=== PATIENT | male | born 1945 | race African-American/Black ===

== ENCOUNTER 2016-10-10 18:08 | Inpatient (IN) | payer MEDICARE, MEDICAID ==
[2016-10-10] MEDS ORDERED: NORMAL SALINE 1000 ML 1,000 ML IV PRN ×5 (18:21→22:29)
--- NOTE | 2016-10-10 19:11 | ER Document Report ---
ED General - General Stated Complaint: WEAKNESS Time seen by provider: 19:11 Mode of Arrival: Stretcher Information source: Emergency Med Personnel TRAVEL OUTSIDE OF THE [place] IN LAST 30 DAYS: No - HPI Patient complains to provider of: hypotension, weight loss, dehydration Onset: Other - Over the past month Onset/Duration: Gradual Quality of pain: Achy Severity: Mild Pain Level: 2 Associated symptoms: Body/muscle aches, Nausea, Weakness Exacerbated by: Denies Relieved by: Denies Notes: Patient is a 70-year-old male with a history of hypertension who was brought to the emergency room by EMS after found by family to be malnourished and dehydrated, family states it is normally quite active, they have not seen him in approximately one month, they stopped by to check on him today and found him in his current state of health, patient admits that he has not had anything to eat or drink for at least the last several days and he is too weak to get up on his own right now - Related Data Allergies/Adverse Reactions: No Known Allergies Allergy (Unverified 09/21/15 13:55) Past Medical History - General Information source: Patient, Relative - Social History Smoking Status: Unknown if Ever Smoked Family History: Reviewed & Not Pertinent - Past Medical History Cardiac Medical History: Reports: Hx Hypertension Denies: Hx Heart Attack Pulmonary Medical History: Denies: Hx Asthma Neurological Medical History: Denies: Hx Cerebrovascular Accident, Hx Seizures GI Medical History: Denies: Hx Hepatitis, Hx Hiatal Hernia, Hx Ulcer Infectious Medical History: Denies: Hx Hepatitis Past Surgical History: Denies: Hx Open Heart Surgery, Hx Pacemaker Review of Systems - Review of Systems Constitutional: Weakness EENT: No symptoms reported Cardiovascular: No symptoms reported Respiratory: No symptoms reported Gastrointestinal: Abdominal pain, Poor appetite, Poor fluid intake Genitourinary: No symptoms reported Male Genitourinary: No symptoms reported Musculoskeletal: No symptoms reported Skin: Dryness Hematologic/Lymphatic: No symptoms reported Neurological/Psychological: No symptoms reported -: Yes All other systems reviewed and negative Physical Exam - Vital signs Vitals: Resp Pulse Ox 16 93 10/10/16 18:20 10/10/16 18:20 Interpretation: Hypotensive - General General appearance: Other - Chronically ill-appearing - HEENT Head: Normocephalic, Atraumatic Eyes: Normal Conjunctiva: Normal Extraocular movements intact: Yes Eyelashes: Normal Pupils: PERRL Mucous membranes: Dry - Respiratory Respiratory status: No respiratory distress Chest status: Nontender Breath sounds: Normal Chest palpation: Normal - Cardiovascular Rhythm: Regular Heart sounds: Normal auscultation - Abdominal Distension: No distension Bowel sounds: Normal Tenderness: Tender - Mild epigastric Organomegaly: No organomegaly - Back Back: Normal - Extremities General upper extremity: Normal inspection General lower extremity: Normal inspection - Neurological Orientation: AAOx4 [place] Coma Scale Eye Opening: Spontaneous [place] Coma Scale Verbal: Oriented [place] Coma Scale Motor: Obeys Commands [place] Coma Scale Total: 15 - Psychological Associated symptoms: Flat affect - Skin Skin Temperature: Warm Skin Moisture: Dry Course - Re-evaluation Re-evalutation: 10/10/16 21:56 Nursing staff spoke with our nursing foam cutting supervisor, we do not have the ability to do emergent dialysis here this evening call to [facility], spoke with [place]- no beds tonight 10/10/16 21:57 call to [facility], spoke with Feroz in transfer center, will have physician call back 10/10/16 22:03 Received a call back from Dr. Chris Diaz, indoor landscape architect through [facility] , he does not feel as though patient needs emergent dialysis at this point, feels as though he is likely just dry, recommends patient be admitted at our facility and be evaluated by our indoor landscape architect in the morning 10/10/16 22:16 Patient was discussed with Dr. Boyd, nephrology who agrees that patient can be admitted here, he will consult on patient in the morning, he requests the patient's labs be repeated, patient get a August catheter placed and a renal ultrasound completed 10/10/16 22:30 Patient was discussed with Dr. Harley, primary care provider who agrees to admit for further evaluation and treatment, he requested a blood gas and a repeat chemistry, he reports concern for possible ethylene glycol ingestion, requested that patient's osmolality be ordered as well and osmoler gap be calculated, patient will be admitted to the [facility] 10/11/16 03:27 Patient's osmolar gap is 7, patient does not appear to have ingested ethylene glycol, in fact he does not appear to have ingested any substances for at least the past few days, contributing to his severe dehydration, his chemistry actually seems to be slightly trending in the right direction, although he continues to be hypotensive, a central line was placed in the right internal jugular vein under ultrasound guidance, and sterile procedure, see procedure note for further details, patient continues to be mentating well, patient remains in the emergency room awaiting a bed in the [facility] - Vital Signs Vital signs: Temp Pulse Resp BP Pulse Ox 97.8 F 16 77/54 L 94 10/10/16 18:24 10/11/16 02:01 10/11/16 02:01 10/11/16 02:01 - Laboratory Result Diagrams: 10/10/16 20:08 10/11/16 00:05 Laboratory results interpreted by me: 10/10/16 10/10/16 10/10/16 20:08 20:08 20:08 Hgb 12.7 L MCV 77 L MCH 25.2 L RDW 15.7 H Plt Count 73 L Seg Neutrophils % 81.0 H Lymphocytes % 8.8 L Potassium 6.3 H* Carbon Dioxide 12 L Anion Gap 25 H BUN 172 H Creatinine 13.13 H Est GFR ( Amer) 5 L Est GFR (Non-Af Amer) 4 L Lactic Acid 2.5 H Creatine Kinase 28 L Lipase 505.5 H Urine Protein Urine Ketones Urine Blood Urine Urobilinogen 10/10/16 21:20 Hgb MCV MCH RDW Plt Count Seg Neutrophils % Lymphocytes % Potassium Carbon Dioxide Anion Gap BUN Creatinine Est GFR ( Amer) Est GFR (Non-Af Amer) Lactic Acid Creatine Kinase Lipase Urine Protein 100 H Urine Ketones TRACE H Urine Blood MODERATE H Urine Urobilinogen 2.0 H - Diagnostic Test Radiology reviewed: Image reviewed, Reports reviewed - EKG Interpretation by Me EKG shows normal: Sinus rhythm Rate: Normal Rhythm: NSR Procedures - Central Line Right Internal jugular Time completed: 00:04 Consent obtained: Yes Central line pre-insertion: Sterile PPE donned, Chloraprep applied, Sterile drapes applied Central line size (Fr.): 7 Central line lumen type: Triple Anesthetic type: 1% Lidocaine mL's of anesthesia: 4 Ultrasound guided: Yes Line secured with sutures: Yes Central line post-insertion: Blood return from lumens, Biopatch applied, Sutured , Sterile dressing applied, Position confirmed w/ CXR Number of attempts: 1 Complications: No Critical Care Note - Critical Care Note Total time excluding time spent on procedures (mins): 120 Comments: Patient arrived hypotensive, laboratory evaluation is consistent with acute renal failure and severe dehydration, requiring multiple IV fluid boluses and admission to the IMCU as well as consultation with specialists Discharge - Discharge Clinical Impression: Severe dehydration, Hyperkalemia Acute renal failure Qualifiers: Acute renal failure type: unspecified Qualified Code(s): N17.9 - Acute kidney failure, unspecified Hypotension Qualifiers: Hypotension type: unspecified hypotension type Qualified Code(s): I95.9 - Hypotension, unspecified Condition: Critical Disposition: ADMITTED INPATIENT Admitting Provider: Cherri Unit Admitted: [facility]
[2016-10-10 20:35] LABS: ABSOLUTE BASOPHILS # (AUTO) 0.1 10^3/uL (0.0-0.2); ABSOLUTE EOSINOPHILS # (AUTO) 0.1 10^3/uL (0.0-0.6); ABSOLUTE LYMPHOCYTES (AUTO) 0.5 10^3/uL (0.5-4.7); ABSOLUTE MONOCYTES (AUTO) 0.4 10^3/uL (0.1-1.4); ABSOLUTE NEUT (AUTO) 4.9 10^3/uL (1.7-8.2); BASOPHILS % (AUTO) 1.1 % (0-2); EOSINOPHILS % (AUTO) 2.2 % (0-6); HEMOGLOBIN 12.7 g/dL (13.5-17.0); HGB HCT DIFFERENCE -0.9; LYMPHOCYTES % (AUTO) 8.8 % (13-45); MEAN CORPUSCULAR HEMOGLOBIN 25.2 pg (27.0-33.4); MEAN CORPUSCULAR HGB CONC 32.7 g/dL (32.0-36.0); MEAN CORPUSCULAR VOLUME 77 fl (80-97); MONOCYTES % (AUTO) 6.9 % (3-13); RED BLOOD COUNT 5.05 10^6/uL (4.35-5.55); RED CELL DISTRIBUTION WIDTH 15.7 % (11.5-14.0); WHITE BLOOD COUNT 6.1 10^3/uL (4.0-10.5)
[2016-10-10 21:07] LABS: CREATINE KINASE MB 0.43 ng/mL (<4.55)
[2016-10-10 21:08] LABS: TROPONIN I < 0.012 ng/mL
[2016-10-10 21:30] LABS: ALANINE AMINOTRANSFERASE 21 U/L (21-72); ALBUMIN 3.5 g/dL (3.5-5.0); ALKALINE PHOSPHATASE 86 U/L (38-126); ASPARTATE AMINO TRANSFERASE 53 U/L (17-59); CALCIUM 8.5 mg/dL (8.4-10.2); CARBON DIOXIDE 12 mmol/L (22-30); CHLORIDE 104 mmol/L (98-107); CREATINE KINASE 28 U/L (55-170); CREATININE RESULT 13.13 mg/dL (0.52-1.25); GLUCOSE 86 mg/dL (75-110); LIPASE 505.5 U/L (23-300); SODIUM 141.3 mmol/L (137-145); TOTAL PROTEIN 7.6 g/dL (6.3-8.2)
[2016-10-10 21:43] LABS: APPEARANCE,URINE CLOUDY; BILIRUBIN,URINE NEGATIVE (NEGATIVE); GLUCOSE, URINE NEGATIVE (NEGATIVE); KETONES,URINE TRACE mg/dL (NEGATIVE); LEUKOCYTE ESTERASE,URINE NEGATIVE (NEGATIVE); NITRITE,URINE NEGATIVE (NEGATIVE); PROTEIN,URINE 100 mg/dL (NEGATIVE); URINE SPECIFIC GRAVITY 1.015
[2016-10-10 21:44] LABS: ALCOHOL < 10 mg/dL (NONE DETECTED); BLOOD UREA NITROGEN 172 mg/dL (7-20)
[2016-10-10 21:45] LABS: ANION GAP 25 (5-19)
[2016-10-10 21:49] LABS: POTASSIUM 6.3 mmol/L (3.6-5.0)
[2016-10-10] MEDS ORDERED: DEXTROSE 50%-WATER 25 GM/50 ML DISP.SYRIN IV ONE (21:54)
[2016-10-10] MEDS ORDERED: INSULIN REG, HUMAN 100 UNIT/ML 3 ML VIAL (PYX) IV ONE (21:54)
[2016-10-10] MEDS ORDERED: CALCIUM GLUCONATE 1000 MG/10 ML INJ IV ONE (21:54)
[2016-10-11 00:55] LABS: ALANINE AMINOTRANSFERASE 16 U/L (21-72); ALBUMIN 3.2 g/dL (3.5-5.0); ALKALINE PHOSPHATASE 82 U/L (38-126); ASPARTATE AMINO TRANSFERASE 53 U/L (17-59); BILIRUBIN,TOTAL 1.1 mg/dL (0.2-1.3); CALCIUM 8.2 mg/dL (8.4-10.2); CREATININE RESULT 12.05 mg/dL (0.52-1.25); GLUCOSE 89 mg/dL (75-110)
[2016-10-11 01:13] LABS: CARBON DIOXIDE 14 mmol/L (22-30); CHLORIDE 108 mmol/L (98-107); POTASSIUM 5.8 mmol/L (3.6-5.0); SODIUM 146.3 mmol/L (137-145)
[2016-10-11 01:17] LABS: ANION GAP 24 (5-19); BLOOD UREA NITROGEN 161 mg/dL (7-20)
[2016-10-11 01:35] LABS: ARTERIAL BLOOD BASE EXCESS -13.5 mmol/L; ARTERIAL BLOOD O2 SATURATION 64.6 % (94-98)
[2016-10-11] MEDS ORDERED: NORMAL SALINE 1000 ML 1,000 ML IV PRN ×3 (01:49→16:31)
[2016-10-11] MEDS ORDERED: DOCUSATE SODIUM 100 MG CAPSULE PO PRN (01:51)
[2016-10-11] MEDS ORDERED: ACETAMINOPHEN 325 MG TABLET PO PRN (01:51)
[2016-10-11] MEDS ORDERED: NORMAL SALINE 1000 ML 1,000 ML IV ONE (03:44)
[2016-10-11 06:44] LABS: ALANINE AMINOTRANSFERASE 18 U/L (21-72); ALBUMIN 2.9 g/dL (3.5-5.0); ALKALINE PHOSPHATASE 73 U/L (38-126); ASPARTATE AMINO TRANSFERASE 48 U/L (17-59); BILIRUBIN,TOTAL 0.9 mg/dL (0.2-1.3); CALCIUM 8.2 mg/dL (8.4-10.2); CARBON DIOXIDE 14 mmol/L (22-30); CHOLESTEROL 110.44 mg/dL (0-200); CREATININE RESULT 10.09 mg/dL (0.52-1.25); Direct HDL 32 mg/dL (>40); GLUCOSE 81 mg/dL (75-110); POTASSIUM 5.2 mmol/L (3.6-5.0); TOTAL PROTEIN 6.5 g/dL (6.3-8.2); TRIGLYCERIDES 261 mg/dL (<150)
[2016-10-11 06:58] LABS: BLOOD UREA NITROGEN 142 mg/dL (7-20); DIRECT LDL < 30 mg/dL (<100); VLDL CHOLESTEROL 52.2 mg/dL (10-31)
[2016-10-11 07:01] LABS: HEMATOCRIT 35.7 % (37.9-51.0); HEMOGLOBIN 11.4 g/dL (13.5-17.0); HGB HCT DIFFERENCE -1.5; MEAN CORPUSCULAR HEMOGLOBIN 24.8 pg (27.0-33.4); MEAN CORPUSCULAR VOLUME 78 fl (80-97); RED BLOOD COUNT 4.61 10^6/uL (4.35-5.55); RED CELL DISTRIBUTION WIDTH 15.5 % (11.5-14.0); WHITE BLOOD COUNT 5.5 10^3/uL (4.0-10.5)
[2016-10-11 07:06] LABS: CHLORIDE 114 mmol/L (98-107)
[2016-10-11 07:11] LABS: ANION GAP 20 (5-19)
--- NOTE | 2016-10-11 07:59 | EKG REPORT ---
SEVERITY:- OTHERWISE NORMAL ECG - SINUS RHYTHM LOW VOLTAGE IN FRONTAL LEADS : Confirmed by: Dc Zavala MD 11-Oct-2016 07:57:26
[2016-10-11] MEDS ORDERED: 1/2 NORMAL SALINE 1,000 ML IV PRN (09:05)
[2016-10-11] MEDS: PANTOPRAZOLE SODIUM 40 MG VIAL IV SCH (09:24)
[2016-10-11 10:15] LABS: ARTERIAL BLOOD BASE EXCESS -11.1 mmol/L; ARTERIAL BLOOD O2 SATURATION 94.1 % (94-98)
[2016-10-11] MEDS ORDERED: LIDOCAINE 1% INJ-PF (10 MG/ML) 30 ML SDV INJ ONE (11:51)
--- NOTE | 2016-10-11 13:13 | Progress Note ---
Provider Note Provider Note: PROCEEDURE: Dr. Boyd requested that the dialysis catheter be pulled back a 5 cm based on the chest x-ray. The Tegaderm dressing was removed, the skin around the right internal jugular catheter site was prepped with surgical scrub. The sutures holding the hub of the catheter workup and the catheter was withdrawn 5 cm. The catheter lab was then sutured back to the skin using a single 4-0 silk suture on either side. The skin on the neck below the right ear was anesthetized with a 1/4 ml intradermal 1% lidocaine injection prior to suturing the catheter hub back to the scan. Patient tolerated the procedure well with no problems. The PCT put another dressing around the catheter at its insertion and then a Tegaderm dressing over that.
--- NOTE | 2016-10-11 13:24 | PDOC H&P ---
History of Present Illness Admission Date/PCP: 10/10/16 22:46 YODIT CALHOUN Patient complains of: Pt has not been seen for weeks, not eating or drinking, dehydrated and wt loss of about 15-20 lbs as per family History of Present Illness: JEZ LE JR is a 70 year old male 70 yr old man with hx of HTN/GERD/ Osteoarthritis/Rhinitis/Vitamin D def./ Chronic smoker who lives alone and has not been seen for weeks as per family. He has not been eating, drinking and has lost about 15-20 lbs weight and was too weak and found on the floor by family when they checked on him. He denied any headache, seizures, fever, chest pain, dyspnea, cough, dysuria, oliguria.He was found to be severely dehydrated at ER and BP was 80/40 and was given 4 Liters of normal saline bolus at ER. Past Medical History Cardiac Medical History: Reports: Hypertension Denies: Myocardial Infarction Pulmonary Medical History: Denies: Asthma Neurological Medical History: Denies: Seizures GI Medical History: Denies: Hepatitis, Hiatal Hernia Hematology: Denies: Anemia, Sickle Cell Disease Past Surgical History Past Surgical History: Denies: Pacemaker Social History Smoking Status: Unknown if Ever Smoked Family History Family History: Reviewed & Not Pertinent Parental Family History Reviewed: Yes Children Family History Reviewed: Yes Sibling(s) Family History Reviewed.: Yes Medication/Allergy Home Medications: Amlodipine Besylate [Norvasc 10 mg Tablet] 10 mg PO DAILY 09/21/15 Diphenhydramine HCl [Diphenhist] 25 mg PO DAILY 09/21/15 Fexofenadine HCl [Tiffanie Allergy] 180 mg PO DAILY 09/21/15 Lisinopril/Hydrochlorothiazide [Lisinopril-Hctz 20-25 mg Tab] 1 each PO DAILY Pantoprazole Sodium [Protonix] 40 mg PO DAILY 09/21/15 Allergies/Adverse Reactions: No Known Allergies Allergy (Unverified 09/21/15 13:55) Review of Systems All systems: as per PMH Constitutional: PRESENT: anorexia, fatigue, weakness, weight loss Cardiovascular: PRESENT: as per HPI Respiratory: PRESENT: as per HPI Gastrointestinal: PRESENT: as per HPI Genitourinary: PRESENT: as per HPI Musculoskeletal: PRESENT: as per HPI Integumentary: PRESENT: as per HPI Neurological: PRESENT: as per HPI Psychiatric: PRESENT: as per HPI Endocrine: PRESENT: as per HPI Hematologic/Lymphatic: PRESENT: as per HPI Physical Exam Vital Signs: Temp Pulse Resp BP Pulse Ox 97.8 F 18 104/67 94 10/10/16 18:24 10/11/16 10:01 10/11/16 10:01 10/11/16 10:01 Intake & Output 10/10/16 10/11/16 10/12/16 06:59 06:59 06:59 Output Total 550 Balance -550 General appearance: PRESENT: no acute distress, thin Head exam: PRESENT: atraumatic, normocephalic Eye exam: PRESENT: EOMI, PERRLA Ear exam: PRESENT: TM's normal bilaterally Mouth exam: PRESENT: dry mucosa, neck supple Neck exam: PRESENT: carotid bruit Respiratory exam: PRESENT: clear to auscultation fadi, symmetrical Cardiovascular exam: PRESENT: +S1, +S2 GI/Abdominal exam: PRESENT: normal bowel sounds, soft Rectal exam: PRESENT: deferred Neurological exam: PRESENT: alert, awake, oriented to person, oriented to place , oriented to time Psychiatric exam: PRESENT: normal mood Results Laboratory Results: 10/11/16 06:06 10/11/16 06:06 10/10/16 10/11/16 10/11/16 23:00 00:05 00:05 WBC RBC Hgb Hct MCV MCH MCHC RDW Plt Count Carbonic Acid HCO3/H2CO3 Ratio ABG pH ABG pCO2 ABG pO2 ABG HCO3 ABG O2 Saturation ABG Base Excess FiO2 Sodium Cancelled 146.3 H Potassium Cancelled 5.8 H Chloride Cancelled 108 H Carbon Dioxide Cancelled 14 L Anion Gap Cancelled 24 H BUN Cancelled 161 H Creatinine Cancelled 12.05 H Est GFR ( Amer) Cancelled 5 L Est GFR (Non-Af Amer) Cancelled 4 L Glucose Cancelled 89 Serum Osmolality 362 H Lactic Acid Calcium Cancelled 8.2 L Total Bilirubin Cancelled 1.1 AST Cancelled 53 ALT Cancelled 16 L Alkaline Phosphatase Cancelled 82 Total Protein Cancelled 7.0 Albumin Cancelled 3.2 L Triglycerides Cholesterol LDL Cholesterol Direct VLDL Cholesterol HDL Cholesterol TSH Stool Occult Blood 10/11/16 10/11/16 10/11/16 00:29 01:22 04:01 WBC RBC Hgb Hct MCV MCH MCHC RDW Plt Count Carbonic Acid 0.99 L HCO3/H2CO3 Ratio 13:1 ABG pH 7.22 L ABG pCO2 32.9 L ABG pO2 39.5 L* ABG HCO3 13.1 L ABG O2 Saturation 64.6 L ABG Base Excess -13.5 FiO2 ROOM AIR Sodium Potassium Chloride Carbon Dioxide Anion Gap BUN Creatinine Est GFR ( Amer) Est GFR (Non-Af Amer) Glucose Serum Osmolality Lactic Acid 2.2 H Calcium Total Bilirubin AST ALT Alkaline Phosphatase Total Protein Albumin Triglycerides Cholesterol LDL Cholesterol Direct VLDL Cholesterol HDL Cholesterol TSH Stool Occult Blood NEGATIVE 10/11/16 10/11/16 10/11/16 06:06 06:06 06:06 WBC 5.5 RBC 4.61 Hgb 11.4 L Hct 35.7 L MCV 78 L MCH 24.8 L MCHC 32.0 RDW 15.5 H Plt Count 64 L Carbonic Acid HCO3/H2CO3 Ratio ABG pH ABG pCO2 ABG pO2 ABG HCO3 ABG O2 Saturation ABG Base Excess FiO2 Sodium 148.0 H Potassium 5.2 H Chloride 114 H Carbon Dioxide 14 L Anion Gap 20 H BUN 142 H Creatinine 10.09 H Est GFR ( Amer) 6 L Est GFR (Non-Af Amer) 5 L Glucose 81 Serum Osmolality Lactic Acid Calcium 8.2 L Total Bilirubin 0.9 AST 48 ALT 18 L Alkaline Phosphatase 73 Total Protein 6.5 Albumin 2.9 L Triglycerides 261 H Cholesterol 110.44 LDL Cholesterol Direct < 30 VLDL Cholesterol 52.2 H HDL Cholesterol 32 L TSH 3.44 Stool Occult Blood 10/11/16 10:03 WBC RBC Hgb Hct MCV MCH MCHC RDW Plt Count Carbonic Acid 0.79 L HCO3/H2CO3 Ratio 16:1 ABG pH 7.32 L ABG pCO2 26.3 L ABG pO2 73.9 L ABG HCO3 13.3 L ABG O2 Saturation 94.1 ABG Base Excess -11.1 FiO2 21% Sodium Potassium Chloride Carbon Dioxide Anion Gap BUN Creatinine Est GFR ( Amer) Est GFR (Non-Af Amer) Glucose Serum Osmolality Lactic Acid Calcium Total Bilirubin AST ALT Alkaline Phosphatase Total Protein Albumin Triglycerides Cholesterol LDL Cholesterol Direct VLDL Cholesterol HDL Cholesterol TSH Stool Occult Blood Impressions: KUB X-Ray 10/11/16 00:00 IMPRESSION: Nonspecific bowel gas pattern Renal Ultrasound 10/11/16 00:00 IMPRESSION: Small ascites. Otherwise unremarkable renal sonogram. Chest X-Ray 10/11/16 00:05 IMPRESSION: No acute cardiopulmonary findings. Right internal jugular central line tip at the level of the right atrium ; consider 5 cm retraction. Assessment & Plan - Diagnosis (1) Acute kidney injury Is this a current diagnosis for this admission?: YesPlan: Ct with IV fluids normal saline at 200 cc/hr; Avoid all nephrotoxics; strict input/out put chart; daily wt. F/u provider relations consultant, Dr Boyd for mgt. (2) Metabolic acidosis, increased anion gap Is this a current diagnosis for this admission?: YesPlan: Ct with IV Fluids normal saline at 200 cc/hr; Strict input/out put chart; monitor chemistry daily. (3) Hyperkalemia Is this a current diagnosis for this admission?: YesPlan: Ct with IV fluids; monitor chemistry daily and avoid all meds that will cause hyperkalemia. (4) Thrombocythemia Is this a current diagnosis for this admission?: YesPlan: Monitor CBC daily and monitor for bleeding.CT with conservative mgt. (5) Reflux esophagitis Is this a current diagnosis for this admission?: YesPlan: Ct with Protonix 40 mg daily iV. (6) DVT prophylaxis Is this a current diagnosis for this admission?: YesPlan: Ct with SCD; avoid Lovenox due to thrombocytopenia. (7) Cigarette smoker Is this a current diagnosis for this admission?: YesPlan: Ct with Nicotine patch 21 mg daily. - Time Time Spent: 30 to 50 Minutes Smoking Cessation Education: 3 to 10 minutes Medications reviewed and adjusted accordingly: Yes Anticipated discharge: Home Within: within 72 hours - Inpatient Certification Medical Necessity: Significant Comorbidiites Make Outpatient Treatment Too Risky , Need Close Monitoring Due to Risk of Patient Decompensation, Need For IV Fluids, Need For Continuous Telemetry Monitoring, Risk of Diagnosis Which Will Require Inpatient Eval/Care/Monitoring
[2016-10-11] MEDS ORDERED: DEXTROSE 5%-WATER 1000 ML 1,000 ML with SODIUM BICARBONATE 150 ML IV PRN ×2 (16:30)
[2016-10-11] MEDS: OXYCODONE-ACETAMINOPHEN 5-325 MG TABLET PO PRN (17:22)
[2016-10-11 17:40] LABS: ALANINE AMINOTRANSFERASE 21 U/L (21-72); ALBUMIN 2.7 g/dL (3.5-5.0); ALKALINE PHOSPHATASE 74 U/L (38-126); ANION GAP 18 (5-19); ASPARTATE AMINO TRANSFERASE 50 U/L (17-59); BILIRUBIN,TOTAL 0.7 mg/dL (0.2-1.3); CALCIUM 7.9 mg/dL (8.4-10.2); CARBON DIOXIDE 12 mmol/L (22-30); CHLORIDE 118 mmol/L (98-107); CREATININE RESULT 7.59 mg/dL (0.52-1.25); GLUCOSE 74 mg/dL (75-110); POTASSIUM 4.7 mmol/L (3.6-5.0); SODIUM 148.3 mmol/L (137-145); TOTAL PROTEIN 6.2 g/dL (6.3-8.2)
[2016-10-11 17:48] LABS: BLOOD UREA NITROGEN 125 mg/dL (7-20)
--- NOTE | 2016-10-11 18:08 | PDOC CONSULTATION ---
Consultation Consult Date: 10/11/16 Consult reason:: Acute kidney injury, hyperkalemia, gap acidosis History of Present Illness Admission Date/PCP: 10/10/16 22:46 YODIT CALHOUN History of Present Illness: JEZ LE JR is a 70 year old male with hx of HTN/GERD/ Osteoarthritis/ Rhinitis/Vitamin D def./Chronic smoker who lives alone and has not been seen for weeks as per family. He has not been eating, drinking and has lost about 15- 20 lbs weight and was too weak and found on the floor by family when they checked on him. He denied any headache, seizures, fever, chest pain, dyspnea, cough, dysuria, oliguria. He was found to be severely dehydrated at ER and BP was 80/40 and was given 4 Liters of normal saline bolus at ER.Was called to discuss the case by the ER physician and I agreed to once the history was reviewed. He has had a August catheter and renal ultrasound done. No apparent history of alcoholism. Patient is quite febrile and looks debilitated. However he is in no acute distress. Is continuing to get fluid resuscitation and seems relatively comfortable as I see him. Past Medical History Cardiac Medical History: Reports: Hypertension-primary Denies: Myocardial Infarction Pulmonary Medical History: Denies: Asthma Neurological Medical History: Denies: Seizures GI Medical History: Denies: Hepatitis, Hiatal Hernia Past Surgical History Past Surgical History: Denies: Pacemaker Social History Smoking Status: Unknown if Ever Smoked Family History Parental Family History Reviewed: Yes - Denies any family history of CKD Children Family History Reviewed: No Sibling(s) Family History Reviewed.: No Medication/Allergy Home Medications: Amlodipine Besylate [Norvasc 10 mg Tablet] 10 mg PO DAILY 09/21/15 Diphenhydramine HCl [Diphenhist] 25 mg PO DAILY 09/21/15 Fexofenadine HCl [Tiffanie Allergy] 180 mg PO DAILY 09/21/15 Lisinopril/Hydrochlorothiazide [Lisinopril-Hctz 20-25 mg Tab] 1 each PO DAILY Pantoprazole Sodium [Protonix] 40 mg PO DAILY 09/21/15 Allergies/Adverse Reactions: No Known Allergies Allergy (Unverified 09/21/15 13:55) Review of Systems Review of Systems: Constitutional: [PRESENT: as per HPI. ABSENT: chills, fever(s), headache(s), weight gain] Eyes: [ABSENT: visual disturbances] Ears: [ABSENT: hearing changes] Cardiovascular: [ABSENT: chest pain, dyspnea on exertion, edema, orthropnea, palpitations] Respiratory: [ABSENT: cough, hemoptysis] Gastrointestinal: [ABSENT: abdominal pain, constipation, diarrhea, hematemesis, hematochezia, nausea, vomiting] Genitourinary: [ABSENT: dysuria, hematuria] Musculoskeletal: [ABSENT: joint swelling] Integumentary: [ABSENT: rash, wounds] Neurological: [ABSENT: abnormal gait, abnormal speech, confusion, dizziness, focal weakness, syncope] Psychiatric: [ABSENT: anxiety, depression, homicidal ideation, suicidal ideation ] Endocrine: [ABSENT: cold intolerance, heat intolerance, polydipsia, polyuria] Hematologic/Lymphatic: [ABSENT: easy bleeding, easy bruising, lymphadenopathy] Physical Exam Vital Signs: Temp Pulse Resp BP Pulse Ox 98.9 F 16 94/64 L 90 L 10/11/16 12:00 10/11/16 13:31 10/11/16 13:31 10/11/16 13:31 Intake & Output 10/10/16 10/11/16 10/12/16 06:59 06:59 06:59 Output Total 550 Balance -550 General appearance: PRESENT: no acute distress, disheveled Exam: Constitutional: [PRESENT: as per HPI. ABSENT: chills, fever(s), headache(s), weight gain, weight loss] Eyes: [ABSENT: visual disturbances] Ears: [ABSENT: hearing changes] Cardiovascular: [ABSENT: chest pain, dyspnea on exertion, edema, orthropnea, palpitations] Respiratory: [ABSENT: cough, hemoptysis] Gastrointestinal: [ABSENT: abdominal pain, constipation, diarrhea, hematemesis, hematochezia, nausea, vomiting] Genitourinary: [ABSENT: dysuria, hematuria] Musculoskeletal: [ABSENT: joint swelling] Integumentary: [ABSENT: rash, wounds] Neurological: [ABSENT: abnormal gait, abnormal speech, confusion, dizziness, focal weakness, syncope] Psychiatric: [ABSENT: anxiety, depression, homicidal ideation, suicidal ideation ] Endocrine: [ABSENT: cold intolerance, heat intolerance, polydipsia, polyuria] Hematologic/Lymphatic: [ABSENT: easy bleeding, easy bruising, lymphadenopathy] Eye exam: PRESENT: conjunctiva pink, EOMI, PERRLA. ABSENT: nystagmus, periorbital swelling Ear exam: PRESENT: normal external ear exam Neck exam: ABSENT: meningismus, tenderness, thyromegaly, tracheal deviation Respiratory exam: PRESENT: clear to auscultation fadi, symmetrical, unlabored. ABSENT: crackles, rhonchi Cardiovascular exam: PRESENT: +S1, +S2, systolic murmur GI/Abdominal exam: PRESENT: soft. ABSENT: distended, firm, guarding, hyperactive bowel sounds, organomegaly, tenderness Extremities exam: ABSENT: pedal edema Neurological exam: PRESENT: alert - But lethargic, awake, oriented to person, oriented to place Psychiatric exam: PRESENT: flat affect Skin exam: PRESENT: dry, pallor. ABSENT: cyanosis, erythema, mottled, rash Results Laboratory Results: 10/11/16 06:06 10/11/16 06:06 10/10/16 10/11/16 10/11/16 23:00 00:05 00:05 WBC RBC Hgb Hct MCV MCH MCHC RDW Plt Count Carbonic Acid HCO3/H2CO3 Ratio ABG pH ABG pCO2 ABG pO2 ABG HCO3 ABG O2 Saturation ABG Base Excess FiO2 Sodium Cancelled 146.3 H Potassium Cancelled 5.8 H Chloride Cancelled 108 H Carbon Dioxide Cancelled 14 L Anion Gap Cancelled 24 H BUN Cancelled 161 H Creatinine Cancelled 12.05 H Est GFR ( Amer) Cancelled 5 L Est GFR (Non-Af Amer) Cancelled 4 L Glucose Cancelled 89 Serum Osmolality 362 H Lactic Acid Calcium Cancelled 8.2 L Magnesium Total Bilirubin Cancelled 1.1 AST Cancelled 53 ALT Cancelled 16 L Alkaline Phosphatase Cancelled 82 Total Protein Cancelled 7.0 Albumin Cancelled 3.2 L Triglycerides Cholesterol LDL Cholesterol Direct VLDL Cholesterol HDL Cholesterol TSH Stool Occult Blood 10/11/16 10/11/16 10/11/16 00:29 01:22 04:01 WBC RBC Hgb Hct MCV MCH MCHC RDW Plt Count Carbonic Acid 0.99 L HCO3/H2CO3 Ratio 13:1 ABG pH 7.22 L ABG pCO2 32.9 L ABG pO2 39.5 L* ABG HCO3 13.1 L ABG O2 Saturation 64.6 L ABG Base Excess -13.5 FiO2 ROOM AIR Sodium Potassium Chloride Carbon Dioxide Anion Gap BUN Creatinine Est GFR ( Amer) Est GFR (Non-Af Amer) Glucose Serum Osmolality Lactic Acid 2.2 H Calcium Magnesium Total Bilirubin AST ALT Alkaline Phosphatase Total Protein Albumin Triglycerides Cholesterol LDL Cholesterol Direct VLDL Cholesterol HDL Cholesterol TSH Stool Occult Blood NEGATIVE 10/11/16 10/11/16 10/11/16 06:06 06:06 06:06 WBC 5.5 RBC 4.61 Hgb 11.4 L Hct 35.7 L MCV 78 L MCH 24.8 L MCHC 32.0 RDW 15.5 H Plt Count 64 L Carbonic Acid HCO3/H2CO3 Ratio ABG pH ABG pCO2 ABG pO2 ABG HCO3 ABG O2 Saturation ABG Base Excess FiO2 Sodium 148.0 H Potassium 5.2 H Chloride 114 H Carbon Dioxide 14 L Anion Gap 20 H BUN 142 H Creatinine 10.09 H Est GFR ( Amer) 6 L Est GFR (Non-Af Amer) 5 L Glucose 81 Serum Osmolality Lactic Acid Calcium 8.2 L Magnesium Total Bilirubin 0.9 AST 48 ALT 18 L Alkaline Phosphatase 73 Total Protein 6.5 Albumin 2.9 L Triglycerides 261 H Cholesterol 110.44 LDL Cholesterol Direct < 30 VLDL Cholesterol 52.2 H HDL Cholesterol 32 L TSH 3.44 Stool Occult Blood 10/11/16 10/11/16 06:06 10:03 WBC RBC Hgb Hct MCV MCH MCHC RDW Plt Count Carbonic Acid 0.79 L HCO3/H2CO3 Ratio 16:1 ABG pH 7.32 L ABG pCO2 26.3 L ABG pO2 73.9 L ABG HCO3 13.3 L ABG O2 Saturation 94.1 ABG Base Excess -11.1 FiO2 21% Sodium Potassium Chloride Carbon Dioxide Anion Gap BUN Creatinine Est GFR ( Amer) Est GFR (Non-Af Amer) Glucose Serum Osmolality Lactic Acid Calcium Magnesium 2.8 H Total Bilirubin AST ALT Alkaline Phosphatase Total Protein Albumin Triglycerides Cholesterol LDL Cholesterol Direct VLDL Cholesterol HDL Cholesterol TSH Stool Occult Blood Impressions: KUB X-Ray 10/11/16 00:00 IMPRESSION: Nonspecific bowel gas pattern Renal Ultrasound 10/11/16 00:00 IMPRESSION: Small ascites. Otherwise unremarkable renal sonogram. Chest X-Ray 10/11/16 00:05 IMPRESSION: No acute cardiopulmonary findings. Right internal jugular central line tip at the level of the right atrium ; consider 5 cm retraction. Assessment & Plan - Diagnosis (1) Acute kidney injury Is this a current diagnosis for this admission?: YesPlan: Patient is clinically very dehydrated. Will adjust and correct fluids that he is on. Discussed with the treating nurse. Besides that I see that his sodium is going higher and will monitor that. The renal ultrasound shows no hydronephrosis or any obstructions. Patient has got hyperkalemia and metabolic acidosis which needs to be corrected and monitored. No evidence as indicated for alcohol poisonings.No indications for renal replacements. However need to monitor closely. (2) Hyperkalemia Is this a current diagnosis for this admission?: YesPlan: Should improve with appropriate fluid resuscitation. Monitor. (3) Hypotension Qualifiers: Hypotension type: unspecified hypotension type Qualified Code(s): I95.9 - Hypotension, unspecified Plan: Clinically looks secondary to severe dehydration. No indications seen again for sepsis, cardiogenic causes, blood loss. Will do a morning cortisol levels. (4) Metabolic acidosis, increased anion gap Is this a current diagnosis for this admission?: YesPlan: Start bicarb drip (5) Severe dehydration Plan: Fluid resuscitation as mentioned earlier. Monitor closely. (6) Acute hypernatremia Plan: Will monitor.
[2016-10-12 07:21] LABS: ABSOLUTE BASOPHILS # (AUTO) 0.1 10^3/uL (0.0-0.2); ABSOLUTE EOSINOPHILS # (AUTO) 0.2 10^3/uL (0.0-0.6); ABSOLUTE LYMPHOCYTES (AUTO) 0.4 10^3/uL (0.5-4.7); ABSOLUTE MONOCYTES (AUTO) 0.4 10^3/uL (0.1-1.4); BASOPHILS % (AUTO) 1.5 % (0-2); EOSINOPHILS % (AUTO) 3.4 % (0-6); HEMATOCRIT 39.7 % (37.9-51.0); HEMOGLOBIN 12.8 g/dL (13.5-17.0); HGB HCT DIFFERENCE -1.3; LYMPHOCYTES % (AUTO) 8.5 % (13-45); MEAN CORPUSCULAR HEMOGLOBIN 24.8 pg (27.0-33.4); MEAN CORPUSCULAR HGB CONC 32.3 g/dL (32.0-36.0); MEAN CORPUSCULAR VOLUME 77 fl (80-97); MONOCYTES % (AUTO) 7.8 % (3-13); RED BLOOD COUNT 5.18 10^6/uL (4.35-5.55); RED CELL DISTRIBUTION WIDTH 15.5 % (11.5-14.0); SEGMENTED NEUTROPHILS % (AUTO) 78.8 % (42-78)
[2016-10-12 07:31] LABS: ALANINE AMINOTRANSFERASE 20 U/L (21-72); ALKALINE PHOSPHATASE 77 U/L (38-126); ANION GAP 19 (5-19); ASPARTATE AMINO TRANSFERASE 60 U/L (17-59); CALCIUM 8.7 mg/dL (8.4-10.2); CARBON DIOXIDE 16 mmol/L (22-30); CHLORIDE 119 mmol/L (98-107); CREATININE RESULT 6.13 mg/dL (0.52-1.25); GLUCOSE 91 mg/dL (75-110); MAGNESIUM 2.6 mg/dL (1.6-2.3); PHOSPHORUS 6.7 mg/dL (2.5-4.5); POTASSIUM 4.5 mmol/L (3.6-5.0); SODIUM 154.1 mmol/L (137-145); TOTAL PROTEIN 6.8 g/dL (6.3-8.2)
[2016-10-12 07:39] LABS: BLOOD UREA NITROGEN 122 mg/dL (7-20)
[2016-10-12] MEDS: PANTOPRAZOLE SODIUM 40 MG VIAL IV SCH (11:00)
[2016-10-12] MEDS: NICOTINE 21 MG/24 HR PATCH.TD24 TD SCH (11:00)
--- NOTE | 2016-10-12 15:49 | PDOC PROGRESS REPORT ---
Subjective Progress Note for:: 10/12/16 Subjective:: Patient was seen in the ER today. He looks and remains comfortable. He is in no acute distress.He denies any history of chest pain shortness of breath fever chills or rigors. He has mild abdominal pains. He has a very poor appetite and has not been eating. He has been on clear liquids and there has been the observation that he might have difficulty in swallowing.He is in the process for being evaluated for a swallow eval by the speech therapist.He continues to get IV fluids. Medications were reviewed. Labs were reviewed with the patient. Physical Exam Vital Signs: Temp Pulse Resp BP Pulse Ox 98.9 F 18 95/67 L 91 L 10/11/16 12:00 10/12/16 14:01 10/12/16 14:00 10/12/16 14:01 Intake & Output 10/11/16 10/12/16 10/13/16 06:59 06:59 06:59 Output Total 550 Balance -550 General appearance: PRESENT: no acute distress Respiratory exam: PRESENT: clear to auscultation fadi, symmetrical, unlabored. ABSENT: crackles, rhonchi, stridor, tachypnea Cardiovascular exam: PRESENT: +S1, +S2, systolic murmur GI/Abdominal exam: PRESENT: soft, tenderness - Mild in the left upper quadrant. ABSENT: distended, firm, guarding, hyperactive bowel sounds, organomegaly Neurological exam: PRESENT: alert, awake, oriented to person, oriented to place Psychiatric exam: PRESENT: flat affect Skin exam: PRESENT: dry, normal color. ABSENT: cyanosis, erythema, rash Results Laboratory Results: 10/12/16 06:53 10/12/16 06:53 10/11/16 10/12/16 10/12/16 16:40 06:53 06:53 WBC 5.0 RBC 5.18 Hgb 12.8 L Hct 39.7 MCV 77 L MCH 24.8 L MCHC 32.3 RDW 15.5 H Plt Count 59 L Seg Neutrophils % 78.8 H Lymphocytes % 8.5 L Monocytes % 7.8 Eosinophils % 3.4 Basophils % 1.5 Absolute Neutrophils 4.0 Absolute Lymphocytes 0.4 L Absolute Monocytes 0.4 Absolute Eosinophils 0.2 Absolute Basophils 0.1 Sodium 148.3 H 154.1 H Potassium 4.7 4.5 Chloride 118 H 119 H Carbon Dioxide 12 L 16 L Anion Gap 18 19 BUN 125 H 122 H Creatinine 7.59 H 6.13 H Est GFR ( Amer) 9 L 11 L Est GFR (Non-Af Amer) 7 L 9 L Glucose 74 L 91 Calcium 7.9 L 8.7 Phosphorus 6.7 H Magnesium 2.6 H Total Bilirubin 0.7 1.0 AST 50 60 H ALT 21 20 L Alkaline Phosphatase 74 77 Total Protein 6.2 L 6.8 Albumin 2.7 L 3.0 L Impressions: KUB X-Ray 10/11/16 00:00 IMPRESSION: Nonspecific bowel gas pattern Renal Ultrasound 10/11/16 00:00 IMPRESSION: Small ascites. Otherwise unremarkable renal sonogram. Chest X-Ray 10/11/16 00:05 IMPRESSION: No acute cardiopulmonary findings. Right internal jugular central line tip at the level of the right atrium ; consider 5 cm retraction. Assessment & Plan - Diagnosis (1) Acute kidney injury Is this a current diagnosis for this admission?: YesPlan: He still remains clinically dehydrated. He is also hypotensive but asymptomatic. However his sodium is rising and therefore will order to adjust his fluids accordingly. Unfortunately he is not drinking appropriate amount of fluids which is compounding the issue. Therefore for the sake of of the rising sodium, even though I would like to keep him on isotonic solutions , I have to convert him to half normal saline and continue on the bicarb drip. Even this might not be enough and he might need D5W conversion at some point down the road.. (2) Hyperkalemia Is this a current diagnosis for this admission?: YesPlan: Stable. Monitor. (3) Hypotension Qualifiers: Hypotension type: unspecified hypotension type Qualified Code(s): I95.9 - Hypotension, unspecified Plan: Did a random cortisol which came back at 33. Patient clinically dehydrated. We will need to continue on fluids. Monitor. (4) Metabolic acidosis, increased anion gap Is this a current diagnosis for this admission?: YesPlan: Continue on the bicarb drip and monitor (5) Severe dehydration Plan: Needs volume resuscitation. We will continue to monitor (6) Acute hypernatremia Plan: Titrated fluids accordingly. Needs to drink p.o. appropriately which at the moment is going to be difficult given his swallow difficulty.
--- NOTE | 2016-10-12 17:05 | PDOC PROGRESS REPORT ---
Subjective Progress Note for:: 10/12/16 Subjective:: He is still dehydrated and mild ly hypotensive. He had swallowing evaluation today and recommendation is nectar thick liquid and to progress to pureed diet and to get cookie swallow test later. He is hypernatremic and has been switched to half normal saline solution in addition to bicarbonate solution. Discussed at length with pt's sister, Ms Johnson about his plan of care and addressed all her concerns. Physical Exam Vital Signs: Temp Pulse Resp BP Pulse Ox 98.9 F 21 H 93/68 L 92 10/11/16 12:00 10/12/16 16:01 10/12/16 16:00 10/12/16 16:01 Intake & Output 10/11/16 10/12/16 10/13/16 06:59 06:59 06:59 Output Total 550 Balance -550 General appearance: PRESENT: no acute distress, well-developed Additional Comments: Dehydrated, chronically ill looking, temporal wasting. Eye exam: PRESENT: EOMI, PERRLA Ear exam: PRESENT: normal external ear exam, TM's normal bilaterally Mouth exam: PRESENT: dry mucosa, neck supple, tongue midline Neck exam: PRESENT: carotid bruit Respiratory exam: PRESENT: clear to auscultation fadi, symmetrical Cardiovascular exam: PRESENT: +S1, +S2 GI/Abdominal exam: PRESENT: normal bowel sounds, soft. ABSENT: ascites, diminished bowel sounds, distended, firm, guarding, hernia, hyperactive bowel sounds, hypoactive bowel sounds, mass, Montes's sign, organolmegaly, rebound, tenderness, other Rectal exam: PRESENT: deferred Neurological exam: PRESENT: awake, oriented to person, oriented to place, oriented to time Psychiatric exam: PRESENT: normal mood Results Laboratory Results: 10/12/16 06:53 10/12/16 06:53 10/11/16 10/12/16 10/12/16 16:40 06:53 06:53 WBC 5.0 RBC 5.18 Hgb 12.8 L Hct 39.7 MCV 77 L MCH 24.8 L MCHC 32.3 RDW 15.5 H Plt Count 59 L Seg Neutrophils % 78.8 H Lymphocytes % 8.5 L Monocytes % 7.8 Eosinophils % 3.4 Basophils % 1.5 Absolute Neutrophils 4.0 Absolute Lymphocytes 0.4 L Absolute Monocytes 0.4 Absolute Eosinophils 0.2 Absolute Basophils 0.1 Sodium 148.3 H 154.1 H Potassium 4.7 4.5 Chloride 118 H 119 H Carbon Dioxide 12 L 16 L Anion Gap 18 19 BUN 125 H 122 H Creatinine 7.59 H 6.13 H Est GFR ( Amer) 9 L 11 L Est GFR (Non-Af Amer) 7 L 9 L Glucose 74 L 91 Calcium 7.9 L 8.7 Phosphorus 6.7 H Magnesium 2.6 H Total Bilirubin 0.7 1.0 AST 50 60 H ALT 21 20 L Alkaline Phosphatase 74 77 Total Protein 6.2 L 6.8 Albumin 2.7 L 3.0 L Impressions: KUB X-Ray 10/11/16 00:00 IMPRESSION: Nonspecific bowel gas pattern Renal Ultrasound 10/11/16 00:00 IMPRESSION: Small ascites. Otherwise unremarkable renal sonogram. Chest X-Ray 10/11/16 00:05 IMPRESSION: No acute cardiopulmonary findings. Right internal jugular central line tip at the level of the right atrium ; consider 5 cm retraction. Assessment & Plan - Diagnosis (1) Acute kidney injury Is this a current diagnosis for this admission?: YesPlan: Ct with IV fluids half normal saline at 200 cc/hr; Avoid all nephrotoxics; strict input/out put chart; daily wt. F/u metalworker, Dr Boyd for mgt. (2) Metabolic acidosis, increased anion gap Is this a current diagnosis for this admission?: YesPlan: Ct with IV Fluids half normal saline at 200 cc/hr; Sodium bicarbonate drip; Strict input/out put chart; monitor chemistry daily. (3) Hyperkalemia Is this a current diagnosis for this admission?: YesPlan: Ct with IV fluids; monitor chemistry daily and avoid all meds that will cause hyperkalemia. (4) Acute hypernatremia Is this a current diagnosis for this admission?: YesPlan: Switch him to half normal saline; he may eventually be switched to D5W since he cannot drink water presently due to swallowing difficulty. Monitor chemistry daily. (5) Thrombocythemia Is this a current diagnosis for this admission?: YesPlan: Monitor CBC daily and monitor for bleeding.CT with conservative mgt. (6) Reflux esophagitis Is this a current diagnosis for this admission?: YesPlan: Ct with Protonix 40 mg daily iV. (7) DVT prophylaxis Is this a current diagnosis for this admission?: YesPlan: Ct with SCD; avoid Lovenox due to thrombocytopenia. (8) Cigarette smoker Is this a current diagnosis for this admission?: YesPlan: Ct with Nicotine patch 21 mg daily.
[2016-10-12] MEDS: DEXTROSE 5%-WATER 1000 ML 1,000 ML with SODIUM BICARBONATE 150 MEQ IV PRN ×4 (18:21→18:25)
[2016-10-12] MEDS: OXYCODONE-ACETAMINOPHEN 5-325 MG TABLET PO PRN (19:29)
[2016-10-12] MEDS: 1/2 NORMAL SALINE 1,000 ML IV PRN (21:05)
[2016-10-13] MEDS: 1/2 NORMAL SALINE 1,000 ML IV PRN ×2 (03:56→19:35)
[2016-10-13 07:07] LABS: ALANINE AMINOTRANSFERASE 21 U/L (21-72); ALBUMIN 2.6 g/dL (3.5-5.0); ALKALINE PHOSPHATASE 76 U/L (38-126); ANION GAP 15 (5-19); ASPARTATE AMINO TRANSFERASE 58 U/L (17-59); BILIRUBIN,TOTAL 0.9 mg/dL (0.2-1.3); CALCIUM 8.7 mg/dL (8.4-10.2); CARBON DIOXIDE 21 mmol/L (22-30); CHLORIDE 119 mmol/L (98-107); CREATININE RESULT 3.54 mg/dL (0.52-1.25); GLUCOSE 104 mg/dL (75-110); SODIUM 154.8 mmol/L (137-145); TOTAL PROTEIN 6.2 g/dL (6.3-8.2)
[2016-10-13 07:21] LABS: BLOOD UREA NITROGEN 96 mg/dL (7-20)
[2016-10-13 07:22] LABS: POTASSIUM 3.3 mmol/L (3.6-5.0)
[2016-10-13 07:28] LABS: ABSOLUTE BASOPHILS # (AUTO) 0.1 10^3/uL (0.0-0.2); ABSOLUTE EOSINOPHILS # (AUTO) 0.3 10^3/uL (0.0-0.6); ABSOLUTE LYMPHOCYTES (AUTO) 0.7 10^3/uL (0.5-4.7); ABSOLUTE MONOCYTES (AUTO) 0.4 10^3/uL (0.1-1.4); ABSOLUTE NEUT (AUTO) 3.9 10^3/uL (1.7-8.2); BASOPHILS % (AUTO) 1.6 % (0-2); EOSINOPHILS % (AUTO) 5.6 % (0-6); HEMATOCRIT 35.9 % (37.9-51.0); HEMOGLOBIN 11.7 g/dL (13.5-17.0); HGB HCT DIFFERENCE -0.8; LYMPHOCYTES % (AUTO) 13.4 % (13-45); MEAN CORPUSCULAR HEMOGLOBIN 24.9 pg (27.0-33.4); MEAN CORPUSCULAR HGB CONC 32.7 g/dL (32.0-36.0); MEAN CORPUSCULAR VOLUME 76 fl (80-97); MONOCYTES % (AUTO) 7.8 % (3-13); RED BLOOD COUNT 4.71 10^6/uL (4.35-5.55); RED CELL DISTRIBUTION WIDTH 15.8 % (11.5-14.0); SEGMENTED NEUTROPHILS % (AUTO) 71.6 % (42-78); WHITE BLOOD COUNT 5.4 10^3/uL (4.0-10.5)
--- NOTE | 2016-10-13 09:27 | ST Inp Modified Barium Swallow ---
Medical Diagnosis - Medical Diagnoses Medical Diagnosis Description & ICD-10 Code(s): s/sx of apsiration - ICD-10 Tx Diagnosis Coding (1) Dysphagia, oral phase ICD-10 Code(s): R13.11 - DYSPHAGIA, ORAL PHASE (2) Dysphagia, oropharyngeal phase ICD-10 Code(s): R13.12 - DYSPHAGIA, OROPHARYNGEAL PHASE (3) Dysphagia, pharyngeal phase ICD-10 Code(s): R13.13 - DYSPHAGIA, PHARYNGEAL PHASE ST Inpatient MBS - General Date: 10/13/16 Date of Onset: 10/10/16 - History History Obtained From: Patient - per EMR -: Medical - per EMR; pt significant for; severe dehydration, acute renal failure, weightloss, not seen for weeks by family was found laying on floor, hypotension, hyperkalemia, acute hypernatremia, reflux esophagitis. Chest xrays shows no acute cardiopulmonary findings. Clear liquid diet. PMHx: HTN, GERD, osteoarthritis, rhinitis, vitamin D deficiency, chronic smoker. MBSS completed due to s/sx of aspiration on thin liquids during bedside evaluation. Medications: Medications Reviewed Allergies: Refer to medical record - Subjective Current Nutritional Means: PO Current PO Diet: Thickened liquids - nectar Current Symptoms: Weight loss, Poor intake, Coughing, c/o Globus sensation Pain: 2/5 - pain in mouth - Objective Assessment: Upright, Left Lateral - Food Trials Food Trials Used: Thin liquids, Pureed, Soft solids - attempted however pt spit out. The Patient: Was Able to Self Feed - Assessment Labial Function: Impaired - impaired seal Lingual Function: Impaired - reduced bolus control, reduced ROM and strength Mandibular Function: Impaired - weak Dentition: Edentulous Velo-Pharyngeal Function: Active gag Laryngeal Function: Volitional Cough, Volitional Swallow - Pharyngeal Stage Initiation of Pharyngeal Stage: Normal Decreased Laryngeal Elevation: Yes - mild Reduced Velo-Pharyngeal Closure: no Reduced Pressure Generation: Yes - mild Reduced Tongue Base Retraction: Yes - mild Pre-Swallowing Pooling in Valleculae: None Pre-Swallowing Pooling in Pyriforms: None Reduced Thyro-Hyiod Approximation: Yes - mild Reduced Epiglottic Excursion: Yes - mild Reduced Pharyngeal Peristalsis: Yes - moderate Multiple Swallows With: Cleared w/ Liquid Assist Post Swallow Residuals in Valleculae: Mild - on puree and thin Post Swallow Residuals in Pyriforms: Mild - on puree and thin Post Swallow Residuals: tongue-base - Impression/Summary Laryngeal Penetration: Yes, Flash, Silent, Cleared, during swallow Tracheal Aspiration: no Patient Presents With: Oral stage dysphagia, Pharyngeal stage dysph., Oral- Pharyngeal dysph. Risk of Aspiration: Mild - Recommendations NPO: no Solid Diet Recommendations: Pureed Liquid Diet Recommendations: Thin Strict Aspitarion Precautions: Yes Dysphagia Therapy with MANAGER PRIMARY: Yes, Inpatient, Outpatient, Home Health, Discharge Recommended Techniques: Fully Upright During Meal, Small Bites and Sips, Alternate Bites/Sips Supervision: Independent Other Recommendations: 1) DIET: recommend puree and thin. 2) Alternate bites and sips. 3) Aspiration precautions. 4) Pt continues to report pain in mouth, this date pt notes pain on roof of mouth. Tongue dry and irritated, roof of mouth presents with red spots, small white patches along posterior edges of gums. SUMMARY: Pt presents with a mild-moderate oral and pharyngeal dysphagia characterized by reduced lingual and labial ROM, reduced lingual strength, poor bolus control, base of tongue weakness, weak pharyngeal peristalsis, reduced laryngeal elevation. Deficits resulting in residuals along base of tongue and in valleculae as well as flash penetration which was observed to clear. Residuals of puree observed to clear with liquid wash. ST provided PO trial of soft solids, pt immediately spit out of mouth and stated bolus was too hard to chew. Pt noted to eat and drink very slowly and in small amounts. ST contacted MD office and spoke with RN, RN reports will provide results and recommendations to MD. - Time Total Time: 15 Total Timed Minutes: 0 ST F.L. Impairment Category - Rationale Based On Rationale Based On: Clin Find., Obj Measures - Swallowing Current G8996: CJ 20-39% Impaired Goal G8997: CI 1-19% Impaired Discharge G8998: None
[2016-10-13] MEDS: PANTOPRAZOLE SODIUM 40 MG VIAL IV SCH (10:10)
[2016-10-13] MEDS: NICOTINE 21 MG/24 HR PATCH.TD24 TD SCH (10:34)
--- NOTE | 2016-10-13 16:03 | PDOC PROGRESS REPORT ---
Subjective Progress Note for:: 10/13/16 Subjective:: He is still dehydrated and mild ly hypotensive. He had swallowing evaluation today and recommendation is nectar thick liquid and to progress to pureed diet and to get cookie swallow test later. He is hypernatremic and has been switched to half normal saline solution in addition to bicarbonate solution. Discussed at length with pt's sister, Ms Johnson about his plan of care and addressed all her concerns. He had Cookie swallow on 10/13/2016 and the recommendations are- fully upright during meal; puree, thin diet; alternate bites and sips; Aspiration precautions. We will add Nystatin swish and swallow for possible oropharyngeal candidiasis. Physical Exam Vital Signs: Temp Pulse Resp BP Pulse Ox 97.1 F 93 22 H 90/65 L 91 L 10/13/16 15:11 10/13/16 15:11 10/13/16 15:11 10/13/16 15:11 10/13/16 15:11 Intake & Output 10/12/16 10/13/16 10/14/16 06:59 06:59 06:59 Intake Total 1920 Output Total 350 Balance 1570 Weight 64.5 kg General appearance: PRESENT: no acute distress, well-developed Additional Comments: Dehydrated, chronically ill looking, temporal wasting. Eye exam: PRESENT: EOMI, PERRLA Ear exam: PRESENT: normal external ear exam, TM's normal bilaterally Mouth exam: PRESENT: dry mucosa, neck supple Respiratory exam: PRESENT: clear to auscultation fadi, symmetrical Cardiovascular exam: PRESENT: +S1, +S2 Pulses: PRESENT: +2 pedal pulses bilateral GI/Abdominal exam: PRESENT: normal bowel sounds, soft Rectal exam: PRESENT: deferred Neurological exam: PRESENT: awake, oriented to person, oriented to place, oriented to time Results Laboratory Results: 10/13/16 06:10 10/13/16 06:10 10/13/16 10/13/16 06:10 06:10 WBC 5.4 RBC 4.71 Hgb 11.7 L Hct 35.9 L MCV 76 L MCH 24.9 L MCHC 32.7 RDW 15.8 H Plt Count 49 L Seg Neutrophils % 71.6 Lymphocytes % 13.4 Monocytes % 7.8 Eosinophils % 5.6 Basophils % 1.6 Absolute Neutrophils 3.9 Absolute Lymphocytes 0.7 Absolute Monocytes 0.4 Absolute Eosinophils 0.3 Absolute Basophils 0.1 Sodium 154.8 H Potassium 3.3 L D Chloride 119 H Carbon Dioxide 21 L Anion Gap 15 BUN 96 H D Creatinine 3.54 H Est GFR ( Amer) 21 L Est GFR (Non-Af Amer) 17 L Glucose 104 Calcium 8.7 Total Bilirubin 0.9 AST 58 ALT 21 Alkaline Phosphatase 76 Total Protein 6.2 L Albumin 2.6 L Impressions: KUB X-Ray 10/11/16 00:00 IMPRESSION: Nonspecific bowel gas pattern Renal Ultrasound 10/11/16 00:00 IMPRESSION: Small ascites. Otherwise unremarkable renal sonogram. Chest X-Ray 10/11/16 00:05 IMPRESSION: No acute cardiopulmonary findings. Right internal jugular central line tip at the level of the right atrium ; consider 5 cm retraction. Modified Barium Swallow 10/13/16 00:00 IMPRESSION: LARYNGEAL PENETRATION WITHOUT ASPIRATION DESCRIBED. PLEASE SEE SPEECH PATHOLOGIST REPORT FOR OTHER FINDINGS AND RECOMMENDATIONS. Assessment & Plan - Diagnosis (1) Acute kidney injury Is this a current diagnosis for this admission?: Yes (2) Metabolic acidosis, increased anion gap Is this a current diagnosis for this admission?: Yes (3) Hypokalemia Is this a current diagnosis for this admission?: YesPlan: KCL 20 MEQ IV x1; Monitor chemistry daily. (4) Oropharyngeal candidiasis Is this a current diagnosis for this admission?: YesPlan: Ct with Nystatin swish and swallow 5mls q6h po (5) Hyperkalemia Is this a current diagnosis for this admission?: Yes (6) Acute hypernatremia Is this a current diagnosis for this admission?: YesPlan: Switch him to half normal saline; he may eventually be switched to D5W since he cannot drink water presently due to swallowing difficulty. Monitor chemistry daily. (7) Thrombocythemia Is this a current diagnosis for this admission?: YesPlan: Monitor CBC daily and monitor for bleeding.CT with conservative mgt. (8) Reflux esophagitis Is this a current diagnosis for this admission?: YesPlan: Ct with Protonix 40 mg daily iV. (9) DVT prophylaxis Is this a current diagnosis for this admission?: YesPlan: Ct with SCD; avoid Lovenox due to thrombocytopenia. (10) Cigarette smoker Is this a current diagnosis for this admission?: YesPlan: Ct with Nicotine patch 21 mg daily.
[2016-10-13] MEDS: NYSTATIN 500000 UNIT/5 ML UDCUP PO SCH ×2 (17:05→21:50)
[2016-10-13] MEDS ORDERED: POTASSIUM CHLORIDE 20 MEQ/50 ML RTU IV ONE (19:00)
[2016-10-14] MEDS: 1/2 NORMAL SALINE 1,000 ML IV PRN ×3 (00:48→19:50)
[2016-10-14 05:30] LABS: ABSOLUTE BASOPHILS # (AUTO) 0.1 10^3/uL (0.0-0.2); ABSOLUTE EOSINOPHILS # (AUTO) 0.3 10^3/uL (0.0-0.6); ABSOLUTE LYMPHOCYTES (AUTO) 0.9 10^3/uL (0.5-4.7); ABSOLUTE MONOCYTES (AUTO) 0.4 10^3/uL (0.1-1.4); ABSOLUTE NEUT (AUTO) 3.3 10^3/uL (1.7-8.2); BASOPHILS % (AUTO) 1.5 % (0-2); HEMATOCRIT 36.1 % (37.9-51.0); HEMOGLOBIN 11.6 g/dL (13.5-17.0); HGB HCT DIFFERENCE -1.3; LYMPHOCYTES % (AUTO) 18.5 % (13-45); MEAN CORPUSCULAR HEMOGLOBIN 24.7 pg (27.0-33.4); MEAN CORPUSCULAR HGB CONC 32.3 g/dL (32.0-36.0); MEAN CORPUSCULAR VOLUME 77 fl (80-97); RED BLOOD COUNT 4.72 10^6/uL (4.35-5.55); RED CELL DISTRIBUTION WIDTH 16.2 % (11.5-14.0)
[2016-10-14 05:53] LABS: ALANINE AMINOTRANSFERASE 24 U/L (21-72); ALBUMIN 2.4 g/dL (3.5-5.0); ALKALINE PHOSPHATASE 72 U/L (38-126); ANION GAP 13 (5-19); ASPARTATE AMINO TRANSFERASE 58 U/L (17-59); BILIRUBIN,TOTAL 0.9 mg/dL (0.2-1.3); CARBON DIOXIDE 23 mmol/L (22-30); CHLORIDE 113 mmol/L (98-107); CREATININE RESULT 2.43 mg/dL (0.52-1.25); GLUCOSE 92 mg/dL (75-110); POTASSIUM 3.1 mmol/L (3.6-5.0); SODIUM 149.2 mmol/L (137-145); TOTAL PROTEIN 5.8 g/dL (6.3-8.2)
[2016-10-14 06:11] LABS: BLOOD UREA NITROGEN 78 mg/dL (7-20)
[2016-10-14 06:22] LABS: ANISOCYTOSIS 1+; BURR CELLS SLIGHT; HYPOCHROMASIA SLIGHT; MICROCYTOSIS SLIGHT; OVALOCYTES 1+; POIKILOCYTOSIS 1+; SCHISTOCYTES SLIGHT; TARGET CELLS SLIGHT
[2016-10-14] MEDS: NICOTINE 21 MG/24 HR PATCH.TD24 TD SCH (09:14)
[2016-10-14] MEDS: NYSTATIN 500000 UNIT/5 ML UDCUP PO SCH ×4 (09:19→21:30)
[2016-10-14] MEDS: POTASSI CL 20 MEQ/50 ML RIDER 20 MEQ/50 ML RTUPB IV SCH ×2 (10:37→12:33)
--- NOTE | 2016-10-14 15:26 | PDOC PROGRESS REPORT ---
Subjective Progress Note for:: 10/14/16 Subjective:: He is still dehydrated and mild ly hypotensive. He had swallowing evaluation today and recommendation is nectar thick liquid and to progress to pureed diet and to get cookie swallow test later. He is hypernatremic and has been switched to half normal saline solution in addition to bicarbonate solution. Discussed at length with pt's sister, Ms Johnson about his plan of care and addressed all her concerns. He had Cookie swallow on 10/13/2016 and the recommendations are- fully upright during meal; puree, thin diet; alternate bites and sips; Aspiration precautions. We will add Nystatin swish and swallow for possible oropharyngeal candidiasis. His potassium dropped to 3.1; we gave him KCL 20 mEQ x2 doses; KUB showed ileus ; we will keep him NPO and monitor closely; get surgical consult if it worsens. Physical Exam Vital Signs: Temp Pulse Resp BP Pulse Ox 97.3 F 97 18 120/82 94 10/14/16 11:37 10/14/16 11:37 10/14/16 11:37 10/14/16 11:37 10/14/16 11:37 Intake & Output 10/13/16 10/14/16 10/15/16 06:59 06:59 06:59 Intake Total 1920 6159 300 Output Total 350 1150 300 Balance 1570 5009 0 Weight 64.5 kg General appearance: PRESENT: no acute distress - chronically ill looking. temporal wasting, dehydrated. Head exam: PRESENT: atraumatic, normocephalic Eye exam: PRESENT: EOMI, PERRLA Mouth exam: PRESENT: neck supple Respiratory exam: PRESENT: decreased breath sounds, symmetrical Cardiovascular exam: PRESENT: +S1, +S2 Pulses: PRESENT: +1 pedal pulses bilateral GI/Abdominal exam: PRESENT: distended, organolmegaly, soft Rectal exam: PRESENT: deferred Neurological exam: PRESENT: awake, oriented to person, oriented to place, oriented to time Psychiatric exam: PRESENT: normal mood Results Laboratory Results: 10/14/16 04:47 10/14/16 04:47 10/14/16 10/14/16 04:47 04:47 WBC 5.0 RBC 4.72 Hgb 11.6 L Hct 36.1 L MCV 77 L MCH 24.7 L MCHC 32.3 RDW 16.2 H Plt Count 41 L Seg Neutrophils % 66.0 Lymphocytes % 18.5 Monocytes % 8.0 Eosinophils % 6.0 Basophils % 1.5 Absolute Neutrophils 3.3 Absolute Lymphocytes 0.9 Absolute Monocytes 0.4 Absolute Eosinophils 0.3 Absolute Basophils 0.1 Sodium 149.2 H Potassium 3.1 L Chloride 113 H Carbon Dioxide 23 Anion Gap 13 BUN 78 H Creatinine 2.43 H Est GFR ( Amer) 32 L Est GFR (Non-Af Amer) 27 L Glucose 92 Calcium 8.0 L Total Bilirubin 0.9 AST 58 ALT 24 Alkaline Phosphatase 72 Total Protein 5.8 L Albumin 2.4 L Impressions: Renal Ultrasound 10/11/16 00:00 IMPRESSION: Small ascites. Otherwise unremarkable renal sonogram. Chest X-Ray 10/11/16 00:05 IMPRESSION: No acute cardiopulmonary findings. Right internal jugular central line tip at the level of the right atrium ; consider 5 cm retraction. Modified Barium Swallow 10/13/16 00:00 IMPRESSION: LARYNGEAL PENETRATION WITHOUT ASPIRATION DESCRIBED. PLEASE SEE SPEECH PATHOLOGIST REPORT FOR OTHER FINDINGS AND RECOMMENDATIONS. KUB X-Ray 10/14/16 00:00 IMPRESSION: Developing small-bowel distention. There is air and contrast throughout the colon from yesterday. Findings most likely represent ileus. Assessment & Plan - Diagnosis (1) Acute kidney injury Is this a current diagnosis for this admission?: YesPlan: Ct with IV fluids half normal saline at 200 cc/hr; Avoid all nephrotoxics; strict input/out put chart; daily wt. F/u director corporate, Dr Boyd for mgt. (2) Metabolic acidosis, increased anion gap Is this a current diagnosis for this admission?: YesPlan: Ct with IV Fluids half normal saline at 200 cc/hr; Sodium bicarbonate drip; Strict input/out put chart; monitor chemistry daily. (3) Hypokalemia Is this a current diagnosis for this admission?: YesPlan: KCL 20 MEQ IV x2; Monitor chemistry daily.We will get Mg level also. (4) Oropharyngeal candidiasis Is this a current diagnosis for this admission?: YesPlan: Ct with Nystatin swish and swallow 5mls q6h po (5) Ileus Is this a current diagnosis for this admission?: YesPlan: Keep him NPO; Ct with IV fluids ; Correct hypokalemia;Monitor closely and get surgical consult if it worsens. (6) Hyperkalemia Is this a current diagnosis for this admission?: Yes (7) Acute hypernatremia Is this a current diagnosis for this admission?: YesPlan: Switch him to half normal saline; he may eventually be switched to D5W since he cannot drink water presently due to swallowing difficulty. Monitor chemistry daily. (8) Thrombocythemia Is this a current diagnosis for this admission?: YesPlan: Monitor CBC daily and monitor for bleeding.CT with conservative mgt. (9) Reflux esophagitis Is this a current diagnosis for this admission?: YesPlan: Ct with Protonix 40 mg daily iV. (10) DVT prophylaxis Is this a current diagnosis for this admission?: YesPlan: Ct with SCD; avoid Lovenox due to thrombocytopenia. (11) Cigarette smoker Is this a current diagnosis for this admission?: YesPlan: Ct with Nicotine patch 21 mg daily.
[2016-10-14 15:52] LABS: ANION GAP 11 (5-19); BLOOD UREA NITROGEN 70 mg/dL (7-20); CARBON DIOXIDE 22 mmol/L (22-30); CHLORIDE 113 mmol/L (98-107); CREATININE RESULT 2.18 mg/dL (0.52-1.25); GLUCOSE 93 mg/dL (75-110); POTASSIUM 3.5 mmol/L (3.6-5.0); SODIUM 146.3 mmol/L (137-145)
[2016-10-14] MEDS ORDERED: POTASSI CL 20 MEQ/50 ML RIDER 50 ML IV ONE (16:50)
--- NOTE | 2016-10-14 17:22 | PDOC PROGRESS REPORT ---
Subjective Progress Note for:: 10/14/16 Subjective:: Patient was seen in the hospital today. His sister is by his bedside. Patient generally feeling better. However is complaining of abdominal distention. He has got mild abdominal pains. Appetite is fair but is on clear liquids only.No history of nausea vomiting no fever chills. He says he has had no bowel movements for the last few days. However he has not had anything to eat in the meanwhile. He still continuing to get half normal saline. Is making good urine outputLabs were reviewed with the patient and his sister. Physical Exam Vital Signs: Temp Pulse Resp BP Pulse Ox 97.3 F 96 18 120/82 94 10/14/16 11:37 10/14/16 14:00 10/14/16 11:37 10/14/16 11:37 10/14/16 11:37 Intake & Output 10/13/16 10/14/16 10/15/16 06:59 06:59 06:59 Intake Total 1920 6159 300 Output Total 350 1150 300 Balance 1570 5009 0 Weight 64.5 kg General appearance: PRESENT: no acute distress Respiratory exam: PRESENT: clear to auscultation fadi, symmetrical. ABSENT: crackles, rhonchi Cardiovascular exam: PRESENT: +S1, +S2, systolic murmur GI/Abdominal exam: PRESENT: distended, firm, hypoactive bowel sounds, soft, tenderness - Mild in the left upper quadrant. ABSENT: guarding, mass, Montes's sign, organomegaly, rebound Extremities exam: ABSENT: pedal edema Neurological exam: PRESENT: alert, awake, oriented to person, oriented to place , oriented to time Skin exam: PRESENT: dry. ABSENT: erythema, mottled, rash Results Laboratory Results: 10/14/16 04:47 10/14/16 15:30 10/14/16 10/14/16 10/14/16 04:47 04:47 15:30 WBC 5.0 RBC 4.72 Hgb 11.6 L Hct 36.1 L MCV 77 L MCH 24.7 L MCHC 32.3 RDW 16.2 H Plt Count 41 L Seg Neutrophils % 66.0 Lymphocytes % 18.5 Monocytes % 8.0 Eosinophils % 6.0 Basophils % 1.5 Absolute Neutrophils 3.3 Absolute Lymphocytes 0.9 Absolute Monocytes 0.4 Absolute Eosinophils 0.3 Absolute Basophils 0.1 Sodium 149.2 H 146.3 H Potassium 3.1 L 3.5 L Chloride 113 H 113 H Carbon Dioxide 23 22 Anion Gap 13 11 BUN 78 H 70 H Creatinine 2.43 H 2.18 H Est GFR ( Amer) 32 L 37 L Est GFR (Non-Af Amer) 27 L 30 L Glucose 92 93 Calcium 8.0 L 8.0 L Magnesium 2.0 Total Bilirubin 0.9 AST 58 ALT 24 Alkaline Phosphatase 72 Total Protein 5.8 L Albumin 2.4 L Impressions: Renal Ultrasound 10/11/16 00:00 IMPRESSION: Small ascites. Otherwise unremarkable renal sonogram. Chest X-Ray 10/11/16 00:05 IMPRESSION: No acute cardiopulmonary findings. Right internal jugular central line tip at the level of the right atrium ; consider 5 cm retraction. Modified Barium Swallow 10/13/16 00:00 IMPRESSION: LARYNGEAL PENETRATION WITHOUT ASPIRATION DESCRIBED. PLEASE SEE SPEECH PATHOLOGIST REPORT FOR OTHER FINDINGS AND RECOMMENDATIONS. KUB X-Ray 10/14/16 00:00 IMPRESSION: Developing small-bowel distention. There is air and contrast throughout the colon from yesterday. Findings most likely represent ileus. Assessment & Plan - Diagnosis (1) Acute kidney injury Is this a current diagnosis for this admission?: YesPlan: There are improving nicely. He is nonoliguric. His acidosis is markedly improved. I am going to change his IV fluids to 75 cc an hour. We will DC his bicarb drip. Monitor. I am off for the weekend will be back on Monday. (2) Hyperkalemia Is this a current diagnosis for this admission?: Yes (3) Hypotension Qualifiers: Hypotension type: unspecified hypotension type Qualified Code(s): I95.9 - Hypotension, unspecified Plan: Has resolved nicely along with correction of his dehydration. Cut back fluids accordingly. (4) Metabolic acidosis, increased anion gap Is this a current diagnosis for this admission?: YesPlan: Almost nearly resolved. DC bicarb drip and monitor. (5) Severe dehydration Plan: Is markedly improved with IV fluid resuscitation. However he is unable to eat or drink much given his ileus. He might need correction of the ileus before he can proceed with his p.o. intake. (6) Acute hypernatremia Is this a current diagnosis for this admission?: YesPlan: Improving nicely (7) Adynamic ileus Plan: As per Dr. Harley.
[2016-10-15 06:13] LABS: ANION GAP 12 (5-19); BLOOD UREA NITROGEN 60 mg/dL (7-20); CALCIUM 8.2 mg/dL (8.4-10.2); CARBON DIOXIDE 21 mmol/L (22-30); CHLORIDE 114 mmol/L (98-107); CREATININE RESULT 2.04 mg/dL (0.52-1.25); GLUCOSE 82 mg/dL (75-110); POTASSIUM 3.4 mmol/L (3.6-5.0)
[2016-10-15] MEDS: NICOTINE 21 MG/24 HR PATCH.TD24 TD SCH (10:29)
[2016-10-15] MEDS: NYSTATIN 500000 UNIT/5 ML UDCUP PO SCH ×4 (10:30→21:37)
--- NOTE | 2016-10-15 12:17 | PDOC PROGRESS REPORT ---
Subjective Progress Note for:: 10/15/16 Subjective:: Patient is seen on morning rounds, and Dr. harrison's absence. He presently is resting in bed. He denies abdominal pain at the present time. He is complaining he's hungry and is upset the surgeon hasn't seen him yet. He continues to have abdominal distention, and very hypoactive bowel sounds. He denies any nausea, abdominal pain or diarrhea. He states he is passing gas. KUB shows small bowel dilatation or possible obstruction. Presently is kept nothing by mouth until seen by surgery. He denies any shortness of breath, chest pain, or dyspnea. He denies any arthralgias or myalgias at the present time. His no family members present in the room at this time. Discussed with his nurse, she states the surgialist will be seeing him today. Physical Exam Vital Signs: Temp Pulse Resp BP Pulse Ox 97.2 F 93 12 101/70 94 10/15/16 03:19 10/15/16 07:00 10/15/16 03:19 10/15/16 03:19 10/15/16 03:19 Intake & Output 10/14/16 10/15/16 10/16/16 06:59 06:59 06:59 Intake Total 6159 2512 Output Total 1150 1000 Balance 5009 1512 General appearance: PRESENT: no acute distress, thin, well-developed Head exam: PRESENT: atraumatic, normocephalic Eye exam: PRESENT: conjunctiva pink, EOMI, PERRLA. ABSENT: scleral icterus Ear exam: PRESENT: normal external ear exam Mouth exam: PRESENT: moist, tongue midline Neck exam: ABSENT: carotid bruit, JVD, lymphadenopathy, thyromegaly Respiratory exam: PRESENT: clear to auscultation fadi. ABSENT: rales, rhonchi, wheezes Cardiovascular exam: PRESENT: RRR. ABSENT: diastolic murmur, rubs, systolic murmur Pulses: PRESENT: normal dorsalis pedis pul Vascular exam: PRESENT: normal capillary refill GI/Abdominal exam: PRESENT: firm, hypoactive bowel sounds Rectal exam: PRESENT: deferred Extremities exam: PRESENT: full ROM. ABSENT: calf tenderness, clubbing, pedal edema Neurological exam: PRESENT: alert, awake, oriented to person, oriented to place , oriented to time, oriented to situation, CN II-XII grossly intact. ABSENT: motor sensory deficit Psychiatric exam: PRESENT: appropriate affect, normal mood. ABSENT: homicidal ideation, suicidal ideation Skin exam: PRESENT: dry, intact, warm. ABSENT: cyanosis, rash Results Laboratory Results: 10/14/16 04:47 10/15/16 05:20 10/14/16 10/15/16 15:30 05:20 Sodium 146.3 H 147.0 H Potassium 3.5 L 3.4 L Chloride 113 H 114 H Carbon Dioxide 22 21 L Anion Gap 11 12 BUN 70 H 60 H Creatinine 2.18 H 2.04 H Est GFR ( Amer) 37 L 39 L Est GFR (Non-Af Amer) 30 L 33 L Glucose 93 82 Calcium 8.0 L 8.2 L Magnesium 2.0 Impressions: Renal Ultrasound 10/11/16 00:00 IMPRESSION: Small ascites. Otherwise unremarkable renal sonogram. Chest X-Ray 10/11/16 00:05 IMPRESSION: No acute cardiopulmonary findings. Right internal jugular central line tip at the level of the right atrium ; consider 5 cm retraction. Modified Barium Swallow 10/13/16 00:00 IMPRESSION: LARYNGEAL PENETRATION WITHOUT ASPIRATION DESCRIBED. PLEASE SEE SPEECH PATHOLOGIST REPORT FOR OTHER FINDINGS AND RECOMMENDATIONS. KUB X-Ray 10/14/16 00:00 IMPRESSION: Developing small-bowel distention. There is air and contrast throughout the colon from yesterday. Findings most likely represent ileus. Assessment & Plan - Diagnosis (1) Adynamic ileus Is this a current diagnosis for this admission?: YesPlan: Awaiting surgeon's input. KUB shows small bowel dilatation. He has abdominal distension and hypoactive bowel sounds (2) Acute hypernatremia Is this a current diagnosis for this admission?: YesPlan: Secondary to dehydration. Improving with hydration with 1/2NS IV fluid (3) Acute renal failure Qualifiers: Acute renal failure type: unspecified Qualified Code(s): N17.9 - Acute kidney failure, unspecified Is this a current diagnosis for this admission?: YesPlan: Continues to improve with hydration (4) Hypokalemia Is this a current diagnosis for this admission?: YesPlan: Replace potassium today - Time Time Spent with patient: 25-34 minutes Critical Time spent with patient: 15-24 minutes Medications reviewed and adjusted accordingly: Yes
[2016-10-15] MEDS: POTASSI CL 20 MEQ/50 ML RIDER 50 ML IV SCH ×2 (13:09→15:11)
--- NOTE | 2016-10-15 18:38 | CONSULTATION REPORT E ---
Consultation Report NAME: JEZ LE : 1945 AGE: 70Y DATE: 10/15/2016 302 A TO: MONICA LEDBETTER M.D. FROM: Arnulfo LECHUGA, Requesting Physician HISTORY OF PRESENT ILLNESS: The patient is a 70-year-old gentleman whom I was asked to see because of concern for ileus. The patient was admitted on 03/09 with a history of not eating or drinking, and his family states he has had a 20-pound weight loss over the last few weeks. The patient has been hydrated, and his electrolyte imbalance has been corrected. On my examination today, the patient's chief complaint is that he is hungry. He denies nausea or vomiting or fever or chills. PAST MEDICAL HISTORY: 1. Remarkable for this recent admission during which he was hypotensive but has been euvolemic and normotensive once his hydration status has been improved. 2. His past medical history is also positive for hypertension. He denies myocardial infarction. 3. He has a history of ethanol abuse, by report. FAMILY HISTORY: Noncontributory. HOME MEDICATIONS: Include: 1. Amlodipine. 2. Fexofenadine for allergies. 3. Lisinopril/hydrochlorothiazide. 4. Protonix. ALLERGIES: No known medical allergies are noted. REVIEW OF SYSTEMS: Well documented in the medical record. PHYSICAL EXAMINATION: GENERAL: On physical examination today, the patient is alert and appropriate. He has been bedridden and states that he has difficulty ambulating. HEAD AND NECK: Grossly unremarkable for age. CHEST: Clear to auscultation and percussion. ABDOMEN: Protuberant with the absence of peritonitis. He has a KUB which reveals contrast in his colon from a barium swallow yesterday. He has fullness of the abdomen consistent with ascites, and he has some peripheral wasting and abdominal fullness is noted. DIAGNOSTIC DATA: Most recent database includes a white count of 5,000, hemoglobin and hematocrit *------*. His sodium is 147, the potassium is 3.4, chloride 114, BUN/creatinine are 60 and 2.0. IMPRESSION: This is a 70-year-old gentleman admitted after an episode of hypotensive electrolyte abnormality. He has the habitus of a history of ethanol use with abdominal fullness and peripheral wasting. He has a KUB which shows no evidence of obstructive process and is consistent with an ileus. However, I think that there is no evidence of surgical pathology within the abdomen based upon his physical examination and history. I would recommend that he be started on a clear-liquid diet and then advanced to a regular diet, increasing activity as much as possible, and Physical Therapy may be helpful. Please feel free to contact the surgical service again should there be questions or problems. DICTATING PHYSICIAN: GABRIELA LEDBETTER M.D. [id number] PHY#: [id number] ID: [id number] JOB#: [id number] ACCT: [id number] cc:MONICA LEDBETTER M.D. >
[2016-10-15] MEDS ORDERED: BISACODYL 10 MG SUPP.RECT PR ONE (19:00)
[2016-10-16] MEDS: 1/2 NORMAL SALINE 1,000 ML IV PRN (05:44)
--- NOTE | 2016-10-16 09:04 | PDOC PROGRESS REPORT ---
Subjective Progress Note for:: 10/16/16 Subjective:: Patient is seen on morning rounds, and Dr. harrison's absence. He presently is resting in bed. He denies abdominal pain at the present time. He did have a bowel movement last night. He denies any nausea, abdominal pain or diarrhea. He states he is passing gas. KUB shows small bowel dilatation or possible obstruction. Presently is kept nothing by mouth until seen by surgery. He denies any shortness of breath, chest pain, or dyspnea. He denies any arthralgias or myalgias at the present time. His no family members present in the room at this time. Physical Exam Vital Signs: Temp Pulse Resp BP Pulse Ox 98.0 F 109 H 18 124/82 96 10/16/16 04:01 10/16/16 07:00 10/16/16 04:01 10/16/16 04:01 10/16/16 04:01 Intake & Output 10/15/16 10/16/16 10/17/16 06:59 06:59 06:59 Intake Total 2512 1850 Output Total 1000 1025 Balance 1512 825 General appearance: PRESENT: no acute distress, thin, well-developed Head exam: PRESENT: atraumatic, normocephalic Eye exam: PRESENT: conjunctiva pink, EOMI, PERRLA. ABSENT: scleral icterus Ear exam: PRESENT: normal external ear exam Mouth exam: PRESENT: moist, tongue midline Neck exam: ABSENT: carotid bruit, JVD, lymphadenopathy, thyromegaly Respiratory exam: PRESENT: clear to auscultation fadi. ABSENT: rales, rhonchi, wheezes Cardiovascular exam: PRESENT: RRR. ABSENT: diastolic murmur, rubs, systolic murmur Pulses: PRESENT: normal dorsalis pedis pul Vascular exam: PRESENT: normal capillary refill GI/Abdominal exam: PRESENT: ascites, distended, hypoactive bowel sounds, soft Rectal exam: PRESENT: deferred Extremities exam: PRESENT: calf tenderness Neurological exam: PRESENT: alert, awake, oriented to person, oriented to place , oriented to time, oriented to situation, CN II-XII grossly intact. ABSENT: motor sensory deficit Psychiatric exam: PRESENT: appropriate affect, normal mood. ABSENT: homicidal ideation, suicidal ideation Skin exam: PRESENT: dry, intact, warm. ABSENT: cyanosis, rash Results Laboratory Results: 10/14/16 04:47 10/15/16 05:20 Impressions: Renal Ultrasound 10/11/16 00:00 IMPRESSION: Small ascites. Otherwise unremarkable renal sonogram. Chest X-Ray 10/11/16 00:05 IMPRESSION: No acute cardiopulmonary findings. Right internal jugular central line tip at the level of the right atrium ; consider 5 cm retraction. Modified Barium Swallow 10/13/16 00:00 IMPRESSION: LARYNGEAL PENETRATION WITHOUT ASPIRATION DESCRIBED. PLEASE SEE SPEECH PATHOLOGIST REPORT FOR OTHER FINDINGS AND RECOMMENDATIONS. KUB X-Ray 10/14/16 00:00 IMPRESSION: Developing small-bowel distention. There is air and contrast throughout the colon from yesterday. Findings most likely represent ileus. Assessment & Plan - Diagnosis (1) Adynamic ileus Is this a current diagnosis for this admission?: YesPlan: Patient did have bowel movement last night He is tolerating a clear liquid diet (2) Acute hypernatremia Is this a current diagnosis for this admission?: YesPlan: Secondary to dehydration. Improving with hydration with 1/2NS IV fluid (3) Acute renal failure Qualifiers: Acute renal failure type: unspecified Qualified Code(s): N17.9 - Acute kidney failure, unspecified Is this a current diagnosis for this admission?: YesPlan: Continues to improve with hydration (4) Hypokalemia Is this a current diagnosis for this admission?: YesPlan: Replace potassium today - Time Time Spent with patient: 25-34 minutes Critical Time spent with patient: 15-24 minutes Medications reviewed and adjusted accordingly: Yes
[2016-10-16] MEDS: NYSTATIN 500000 UNIT/5 ML UDCUP PO SCH ×4 (09:30→21:04)
[2016-10-16] MEDS: NICOTINE 21 MG/24 HR PATCH.TD24 TD SCH (09:30)
[2016-10-16 10:22] LABS: ANION GAP 12 (5-19); BLOOD UREA NITROGEN 56 mg/dL (7-20); CALCIUM 8.4 mg/dL (8.4-10.2); CARBON DIOXIDE 20 mmol/L (22-30); CHLORIDE 117 mmol/L (98-107); CREATININE RESULT 1.58 mg/dL (0.52-1.25); GLUCOSE 83 mg/dL (75-110); POTASSIUM 3.6 mmol/L (3.6-5.0); SODIUM 148.9 mmol/L (137-145)
[2016-10-16] MEDS: ZOLPIDEM TARTRATE 5 MG TABLET PO PRN (21:04)
[2016-10-17 05:48] LABS: ALANINE AMINOTRANSFERASE 16 U/L (21-72); ALBUMIN 2.4 g/dL (3.5-5.0); ALKALINE PHOSPHATASE 81 U/L (38-126); ANION GAP 12 (5-19); ASPARTATE AMINO TRANSFERASE 65 U/L (17-59); BILIRUBIN,TOTAL 1.3 mg/dL (0.2-1.3); BLOOD UREA NITROGEN 50 mg/dL (7-20); CALCIUM 8.7 mg/dL (8.4-10.2); CARBON DIOXIDE 21 mmol/L (22-30); CHLORIDE 117 mmol/L (98-107); CREATININE RESULT 1.47 mg/dL (0.52-1.25); GLUCOSE 85 mg/dL (75-110); SODIUM 150.2 mmol/L (137-145); TOTAL PROTEIN 6.2 g/dL (6.3-8.2)
[2016-10-17 05:50] LABS: POTASSIUM 3.4 mmol/L (3.6-5.0)
[2016-10-17 05:56] LABS: ABSOLUTE BASOPHILS # (AUTO) 0.1 10^3/uL (0.0-0.2); ABSOLUTE EOSINOPHILS # (AUTO) 0.4 10^3/uL (0.0-0.6); ABSOLUTE LYMPHOCYTES (AUTO) 1.2 10^3/uL (0.5-4.7); ABSOLUTE MONOCYTES (AUTO) 0.6 10^3/uL (0.1-1.4); ABSOLUTE NEUT (AUTO) 3.9 10^3/uL (1.7-8.2); BASOPHILS % (AUTO) 1.8 % (0-2); EOSINOPHILS % (AUTO) 5.8 % (0-6); HEMATOCRIT 37.4 % (37.9-51.0); HEMOGLOBIN 11.9 g/dL (13.5-17.0); HGB HCT DIFFERENCE -1.7; MEAN CORPUSCULAR HEMOGLOBIN 24.6 pg (27.0-33.4); MEAN CORPUSCULAR HGB CONC 31.8 g/dL (32.0-36.0); MEAN CORPUSCULAR VOLUME 78 fl (80-97); MONOCYTES % (AUTO) 9.1 % (3-13); RED BLOOD COUNT 4.83 10^6/uL (4.35-5.55); SEGMENTED NEUTROPHILS % (AUTO) 63.3 % (42-78); WHITE BLOOD COUNT 6.1 10^3/uL (4.0-10.5)
[2016-10-17] MEDS: NYSTATIN 500000 UNIT/5 ML UDCUP PO SCH ×4 (09:33→22:39)
[2016-10-17] MEDS: NICOTINE 21 MG/24 HR PATCH.TD24 TD SCH (09:34)
[2016-10-17] MEDS ORDERED: POLYETHYLENE GLYCOL 3350 POWDER 17 GM/1 PACKET PO PRN (18:06)
--- NOTE | 2016-10-17 18:06 | PDOC PROGRESS REPORT ---
Subjective Progress Note for:: 10/17/16 Subjective:: He is still dehydrated and mild ly hypotensive. He had swallowing evaluation today and recommendation is nectar thick liquid and to progress to pureed diet and to get cookie swallow test later. He is hypernatremic and has been switched to half normal saline solution in addition to bicarbonate solution. Discussed at length with pt's sister, Ms Johnson about his plan of care and addressed all her concerns. He had Cookie swallow on 10/13/2016 and the recommendations are- fully upright during meal; puree, thin diet; alternate bites and sips; Aspiration precautions. We will add Nystatin swish and swallow for possible oropharyngeal candidiasis. His potassium dropped to 3.1; we gave him KCL 20 mEQ x2 doses; KUB showed ileus and it was managed conservatively and it has resolved. He is now on full liquid diet but has not had bowel movement. We will give him fleet enemax1. He was to get up and walk up to the door with physical therapist today. Physical Exam Vital Signs: Temp Pulse Resp BP Pulse Ox 97.7 F 97 16 106/79 91 L 10/17/16 12:00 10/17/16 12:00 10/17/16 12:00 10/17/16 12:00 10/17/16 12:00 Intake & Output 10/16/16 10/17/16 10/18/16 06:59 06:59 06:59 Intake Total 1850 2296 337 Output Total 1025 1300 200 Balance 825 996 137 Weight 74.7 kg General appearance: PRESENT: no acute distress, mild distress, well-developed Head exam: PRESENT: atraumatic, normocephalic Eye exam: PRESENT: EOMI, PERRLA Mouth exam: PRESENT: neck supple, tongue midline Respiratory exam: PRESENT: clear to auscultation fadi, symmetrical Cardiovascular exam: PRESENT: +S1, +S2 Pulses: PRESENT: +2 pedal pulses bilateral GI/Abdominal exam: PRESENT: normal bowel sounds, soft Neurological exam: PRESENT: alert, awake, oriented to person, oriented to place , oriented to time Psychiatric exam: PRESENT: normal mood Results Laboratory Results: 10/17/16 04:40 10/17/16 04:40 10/17/16 10/17/16 04:40 04:40 WBC 6.1 RBC 4.83 Hgb 11.9 L Hct 37.4 L MCV 78 L MCH 24.6 L MCHC 31.8 L RDW 17.0 H Plt Count 47 L Seg Neutrophils % 63.3 Lymphocytes % 20.0 Monocytes % 9.1 Eosinophils % 5.8 Basophils % 1.8 Absolute Neutrophils 3.9 Absolute Lymphocytes 1.2 Absolute Monocytes 0.6 Absolute Eosinophils 0.4 Absolute Basophils 0.1 Sodium 150.2 H Potassium 3.4 L Chloride 117 H Carbon Dioxide 21 L Anion Gap 12 BUN 50 H Creatinine 1.47 H Est GFR ( Amer) 58 L Est GFR (Non-Af Amer) 48 L Glucose 85 Calcium 8.7 Total Bilirubin 1.3 AST 65 H ALT 16 L Alkaline Phosphatase 81 Total Protein 6.2 L Albumin 2.4 L Impressions: Renal Ultrasound 10/11/16 00:00 IMPRESSION: Small ascites. Otherwise unremarkable renal sonogram. Chest X-Ray 10/11/16 00:05 IMPRESSION: No acute cardiopulmonary findings. Right internal jugular central line tip at the level of the right atrium ; consider 5 cm retraction. Modified Barium Swallow 10/13/16 00:00 IMPRESSION: LARYNGEAL PENETRATION WITHOUT ASPIRATION DESCRIBED. PLEASE SEE SPEECH PATHOLOGIST REPORT FOR OTHER FINDINGS AND RECOMMENDATIONS. KUB X-Ray 10/14/16 00:00 IMPRESSION: Developing small-bowel distention. There is air and contrast throughout the colon from yesterday. Findings most likely represent ileus. Assessment & Plan - Diagnosis (1) Acute kidney injury Is this a current diagnosis for this admission?: YesPlan: Ct with IV fluids half normal saline at 75 cc/hr; Avoid all nephrotoxics; strict input/out put chart; daily wt. F/u media associate, Dr Boyd for mgt. (2) Metabolic acidosis, increased anion gap Is this a current diagnosis for this admission?: YesPlan: Ct with IV Fluids half normal saline at 75 cc/hr; Strict input/out put chart; monitor chemistry daily. (3) Hypokalemia Is this a current diagnosis for this admission?: YesPlan: KCL 20 MEQ IV x2; Monitor chemistry daily.We will get Mg level also. (4) Oropharyngeal candidiasis Is this a current diagnosis for this admission?: YesPlan: Ct with Nystatin swish and swallow 5mls q6h po (5) Ileus Is this a current diagnosis for this admission?: YesPlan: Pt is on full liquid diet; Ct with IV fluids ; Monitor chemistry daily and ensure adequate correction of hypokalemia. (6) Hyperkalemia Is this a current diagnosis for this admission?: Yes (7) Acute hypernatremia Is this a current diagnosis for this admission?: YesPlan: Switch him to half normal saline; he may eventually be switched to D5W since he cannot drink water presently due to swallowing difficulty. Monitor chemistry daily. (8) Thrombocythemia Is this a current diagnosis for this admission?: YesPlan: Monitor CBC daily and monitor for bleeding.CT with conservative mgt. (9) Reflux esophagitis Is this a current diagnosis for this admission?: YesPlan: Ct with Protonix 40 mg daily iV. (10) DVT prophylaxis Is this a current diagnosis for this admission?: YesPlan: Ct with SCD; avoid Lovenox due to thrombocytopenia. (11) Cigarette smoker Is this a current diagnosis for this admission?: YesPlan: Ct with Nicotine patch 21 mg daily. (12) Constipation Is this a current diagnosis for this admission?: YesPlan: Give fleet enema x1; Miralax 17 g daily prn.
[2016-10-17] MEDS ORDERED: NA PHOS,M-B/NA PHOS,DI-BA (ADULT) 133 ML ENEMA PR ONE (19:00)
[2016-10-17] MEDS: ZOLPIDEM TARTRATE 5 MG TABLET PO PRN (22:42)
[2016-10-18] MEDS: NYSTATIN 500000 UNIT/5 ML UDCUP PO SCH ×4 (09:33→21:30)
[2016-10-18] MEDS: NICOTINE 21 MG/24 HR PATCH.TD24 TD SCH (09:34)
[2016-10-18 10:11] LABS: ALANINE AMINOTRANSFERASE 23 U/L (21-72); ALBUMIN 2.3 g/dL (3.5-5.0); ALKALINE PHOSPHATASE 77 U/L (38-126); ANION GAP 13 (5-19); ASPARTATE AMINO TRANSFERASE 60 U/L (17-59); BLOOD UREA NITROGEN 44 mg/dL (7-20); CALCIUM 8.5 mg/dL (8.4-10.2); CARBON DIOXIDE 18 mmol/L (22-30); CHLORIDE 117 mmol/L (98-107); CREATININE RESULT 1.44 mg/dL (0.52-1.25); GLUCOSE 84 mg/dL (75-110); POTASSIUM 3.3 mmol/L (3.6-5.0); SODIUM 147.7 mmol/L (137-145); TOTAL PROTEIN 5.8 g/dL (6.3-8.2)
[2016-10-18 10:21] LABS: HEMATOCRIT 35.9 % (37.9-51.0); HEMOGLOBIN 11.6 g/dL (13.5-17.0); HGB HCT DIFFERENCE -1.1; MEAN CORPUSCULAR HGB CONC 32.2 g/dL (32.0-36.0); MEAN CORPUSCULAR VOLUME 78 fl (80-97); RED BLOOD COUNT 4.61 10^6/uL (4.35-5.55); RED CELL DISTRIBUTION WIDTH 17.5 % (11.5-14.0)
[2016-10-18 10:54] LABS: BASOPHILS % (MANUAL) 2 % (0-2); EOSINOPHILS % (MANUAL) 5 % (0-6); LYMPHOCYTES % (MANUAL) 11 % (13-45); TOTAL CELLS COUNTED 100
[2016-10-18 10:55] LABS: ANISOCYTOSIS 2+; BURR CELLS SLIGHT; HYPOCHROMASIA 1+; OVALOCYTES 2+; POIKILOCYTOSIS 2+; ROULEAUX 1+; SCHISTOCYTES 1+; TOXIC GRANULATION SLIGHT
[2016-10-18 10:56] LABS: MICROCYTOSIS 1+
--- NOTE | 2016-10-18 12:55 | PDOC PROGRESS REPORT ---
Subjective Progress Note for:: 10/18/16 Subjective:: He is still dehydrated and mild ly hypotensive. He had swallowing evaluation today and recommendation is nectar thick liquid and to progress to pureed diet and to get cookie swallow test later. He is hypernatremic and has been switched to half normal saline solution in addition to bicarbonate solution. Discussed at length with pt's sister, Ms Johnson about his plan of care and addressed all her concerns. He had Cookie swallow on 10/13/2016 and the recommendations are- fully upright during meal; puree, thin diet; alternate bites and sips; Aspiration precautions. We will add Nystatin swish and swallow for possible oropharyngeal candidiasis. His potassium dropped to 3.1; we gave him KCL 20 mEQ x2 doses; KUB showed ileus and it was managed conservatively and it has resolved. He is now on full liquid diet but has not had bowel movement. We will give him fleet enemax1. He was to get up and walk up to the door with physical therapist today. He had large bowel movement last night and this morning. His potassium dropped to 3.3; we will give him KCL 20 MEQ IV x2 and KCL 20 MEQ liquid form P.O. daily. Physical Exam Vital Signs: Temp Pulse Resp BP Pulse Ox 97.7 F 95 22 H 109/81 92 10/18/16 11:37 10/18/16 11:37 10/18/16 11:37 10/18/16 11:37 10/18/16 11:37 Intake & Output 10/17/16 10/18/16 10/19/16 06:59 06:59 06:59 Intake Total 2296 2337 100 Output Total 1300 700 200 Balance 996 1637 -100 Weight 74.7 kg 74 kg General appearance: PRESENT: no acute distress, thin, well-developed Head exam: PRESENT: atraumatic, normocephalic Ear exam: PRESENT: TM's normal bilaterally Mouth exam: PRESENT: neck supple, tongue midline Respiratory exam: PRESENT: clear to auscultation fadi, symmetrical Cardiovascular exam: PRESENT: +S1, +S2 Pulses: PRESENT: +2 pedal pulses bilateral GI/Abdominal exam: PRESENT: normal bowel sounds, soft Rectal exam: PRESENT: deferred Neurological exam: PRESENT: alert, awake, oriented to person, oriented to place , oriented to time Psychiatric exam: PRESENT: normal mood Results Laboratory Results: 10/18/16 09:30 10/18/16 09:30 10/18/16 10/18/16 09:30 09:30 WBC 6.0 RBC 4.61 Hgb 11.6 L Hct 35.9 L MCV 78 L MCH 25.0 L MCHC 32.2 RDW 17.5 H Plt Count 43 L Seg Neutrophils % Not Reportable Lymphocytes % Not Reportable Monocytes % Not Reportable Eosinophils % Not Reportable Basophils % Not Reportable Absolute Neutrophils Not Reportable Absolute Lymphocytes Not Reportable Absolute Monocytes Not Reportable Absolute Eosinophils Not Reportable Absolute Basophils Not Reportable Sodium 147.7 H Potassium 3.3 L Chloride 117 H Carbon Dioxide 18 L Anion Gap 13 BUN 44 H Creatinine 1.44 H Est GFR ( Amer) 59 L Est GFR (Non-Af Amer) 49 L Glucose 84 Calcium 8.5 Total Bilirubin 1.0 AST 60 H ALT 23 Alkaline Phosphatase 77 Total Protein 5.8 L Albumin 2.3 L Impressions: Renal Ultrasound 10/11/16 00:00 IMPRESSION: Small ascites. Otherwise unremarkable renal sonogram. Chest X-Ray 10/11/16 00:05 IMPRESSION: No acute cardiopulmonary findings. Right internal jugular central line tip at the level of the right atrium ; consider 5 cm retraction. Modified Barium Swallow 10/13/16 00:00 IMPRESSION: LARYNGEAL PENETRATION WITHOUT ASPIRATION DESCRIBED. PLEASE SEE SPEECH PATHOLOGIST REPORT FOR OTHER FINDINGS AND RECOMMENDATIONS. KUB X-Ray 10/14/16 00:00 IMPRESSION: Developing small-bowel distention. There is air and contrast throughout the colon from yesterday. Findings most likely represent ileus. Assessment & Plan - Diagnosis (1) Acute kidney injury Is this a current diagnosis for this admission?: YesPlan: Ct with IV fluids half normal saline at 75 cc/hr; Avoid all nephrotoxics; strict input/out put chart; daily wt. F/u telephone solicitor supervisor, Dr Boyd for mgt. (2) Metabolic acidosis, increased anion gap Is this a current diagnosis for this admission?: YesPlan: Ct with IV Fluids half normal saline at 75 cc/hr; Strict input/out put chart; monitor chemistry daily. (3) Hypokalemia Is this a current diagnosis for this admission?: YesPlan: KCL 20 MEQ IV x2; KCL 20MEQ liquid form po daily; Mg is normal at 2.0. Monitor chemistry daily (4) Oropharyngeal candidiasis Is this a current diagnosis for this admission?: YesPlan: Ct with Nystatin swish and swallow 5mls q6h po (5) Ileus Is this a current diagnosis for this admission?: YesPlan: Pt is on full liquid diet; Ct with IV fluids ; Monitor chemistry daily and ensure adequate correction of hypokalemia. (6) Hyperkalemia Is this a current diagnosis for this admission?: Yes (7) Acute hypernatremia Is this a current diagnosis for this admission?: YesPlan: Switch him to half normal saline; he may eventually be switched to D5W since he cannot drink water presently due to swallowing difficulty. Monitor chemistry daily. (8) Thrombocythemia Is this a current diagnosis for this admission?: YesPlan: Monitor CBC daily and monitor for bleeding.CT with conservative mgt. (9) Reflux esophagitis Is this a current diagnosis for this admission?: YesPlan: Ct with Protonix 40 mg daily iV. (10) DVT prophylaxis Is this a current diagnosis for this admission?: YesPlan: Ct with SCD; avoid Lovenox due to thrombocytopenia. (11) Cigarette smoker Is this a current diagnosis for this admission?: YesPlan: Ct with Nicotine patch 21 mg daily. (12) Constipation Is this a current diagnosis for this admission?: YesPlan: Give fleet enema x1; Miralax 17 g daily prn.
[2016-10-18] MEDS ORDERED: POTASSIUM CHLORIDE 20 MEQ/15 ML UDCUP PO ONE (13:30)
[2016-10-18] MEDS: POTASSIUM CHLORIDE 20 MEQ/50 ML RTU IV SCH ×4 (15:12→19:20)
[2016-10-19] MEDS: ZOLPIDEM TARTRATE 5 MG TABLET PO PRN ×2 (00:24→21:11)
[2016-10-19 06:04] LABS: ABSOLUTE BASOPHILS # (AUTO) 0.1 10^3/uL (0.0-0.2); ABSOLUTE EOSINOPHILS # (AUTO) 0.3 10^3/uL (0.0-0.6); ABSOLUTE LYMPHOCYTES (AUTO) 1.2 10^3/uL (0.5-4.7); ABSOLUTE MONOCYTES (AUTO) 0.5 10^3/uL (0.1-1.4); ABSOLUTE NEUT (AUTO) 3.4 10^3/uL (1.7-8.2); BASOPHILS % (AUTO) 1.6 % (0-2); EOSINOPHILS % (AUTO) 5.9 % (0-6); HEMATOCRIT 36.3 % (37.9-51.0); HEMOGLOBIN 11.7 g/dL (13.5-17.0); HGB HCT DIFFERENCE -1.2; LYMPHOCYTES % (AUTO) 21.3 % (13-45); MEAN CORPUSCULAR HGB CONC 32.3 g/dL (32.0-36.0); MEAN CORPUSCULAR VOLUME 77 fl (80-97); MONOCYTES % (AUTO) 9.4 % (3-13); RED BLOOD COUNT 4.69 10^6/uL (4.35-5.55); RED CELL DISTRIBUTION WIDTH 18.2 % (11.5-14.0); SEGMENTED NEUTROPHILS % (AUTO) 61.8 % (42-78); WHITE BLOOD COUNT 5.6 10^3/uL (4.0-10.5)
[2016-10-19 06:25] LABS: ALANINE AMINOTRANSFERASE 23 U/L (21-72); ALBUMIN 2.3 g/dL (3.5-5.0); ALKALINE PHOSPHATASE 78 U/L (38-126); ANION GAP 17 (5-19); ASPARTATE AMINO TRANSFERASE 61 U/L (17-59); BLOOD UREA NITROGEN 39 mg/dL (7-20); CALCIUM 8.4 mg/dL (8.4-10.2); CARBON DIOXIDE 16 mmol/L (22-30); CHLORIDE 118 mmol/L (98-107); GLUCOSE 77 mg/dL (75-110); POTASSIUM 3.6 mmol/L (3.6-5.0); SODIUM 150.6 mmol/L (137-145)
[2016-10-19] MEDS: NICOTINE 21 MG/24 HR PATCH.TD24 TD SCH (09:17)
[2016-10-19] MEDS: NYSTATIN 500000 UNIT/5 ML UDCUP PO SCH ×4 (09:19→21:11)
[2016-10-19] MEDS: POTASSIUM CHLORIDE 20 MEQ/15 ML UDCUP PO SCH (09:19)
--- NOTE | 2016-10-19 12:36 | PDOC PROGRESS REPORT ---
Subjective Progress Note for:: 10/19/16 Subjective:: He is still dehydrated and mild ly hypotensive. He had swallowing evaluation today and recommendation is nectar thick liquid and to progress to pureed diet and to get cookie swallow test later. He is hypernatremic and has been switched to half normal saline solution in addition to bicarbonate solution. Discussed at length with pt's sister, Ms Johnson about his plan of care and addressed all her concerns. He had Cookie swallow on 10/13/2016 and the recommendations are- fully upright during meal; puree, thin diet; alternate bites and sips; Aspiration precautions. We will add Nystatin swish and swallow for possible oropharyngeal candidiasis. His potassium dropped to 3.1; we gave him KCL 20 mEQ x2 doses; KUB showed ileus and it was managed conservatively and it has resolved. He is now on full liquid diet but has not had bowel movement. We will give him fleet enemax1. He was to get up and walk up to the door with physical therapist today. He had large bowel movement last night and this morning. His potassium dropped to 3.3; we will give him KCL 20 MEQ IV x2 and KCL 20 MEQ liquid form P.O. daily.He was able to get up from bed and sit on the chair for about 30 minutes. He will need short term REHAB for deconditioning, though pt is refusing it. Physical Exam Vital Signs: Temp Pulse Resp BP Pulse Ox 97.4 F 103 H 19 116/78 98 10/19/16 07:33 10/19/16 07:33 10/19/16 07:33 10/19/16 07:33 10/19/16 07:33 Intake & Output 10/18/16 10/19/16 10/20/16 06:59 06:59 06:59 Intake Total 2337 1400 Output Total 700 850 Balance 1637 550 Weight 74 kg 75.1 kg General appearance: PRESENT: no acute distress, thin Head exam: PRESENT: atraumatic, normocephalic Eye exam: PRESENT: EOMI, PERRLA Ear exam: PRESENT: normal external ear exam Respiratory exam: PRESENT: clear to auscultation fadi, symmetrical Cardiovascular exam: PRESENT: +S1, +S2 GI/Abdominal exam: PRESENT: normal bowel sounds, soft Rectal exam: PRESENT: deferred Neurological exam: PRESENT: alert, awake, oriented to person, oriented to place , oriented to time Psychiatric exam: PRESENT: normal mood Results Laboratory Results: 10/19/16 04:48 10/19/16 04:48 10/19/16 10/19/16 04:48 04:48 WBC 5.6 RBC 4.69 Hgb 11.7 L Hct 36.3 L MCV 77 L MCH 25.0 L MCHC 32.3 RDW 18.2 H Plt Count 45 L Seg Neutrophils % 61.8 Lymphocytes % 21.3 Monocytes % 9.4 Eosinophils % 5.9 Basophils % 1.6 Absolute Neutrophils 3.4 Absolute Lymphocytes 1.2 Absolute Monocytes 0.5 Absolute Eosinophils 0.3 Absolute Basophils 0.1 Sodium 150.6 H Potassium 3.6 Chloride 118 H Carbon Dioxide 16 L Anion Gap 17 BUN 39 H Creatinine 1.40 H Est GFR ( Amer) > 60 Est GFR (Non-Af Amer) 50 L Glucose 77 Calcium 8.4 Total Bilirubin 1.0 AST 61 H ALT 23 Alkaline Phosphatase 78 Total Protein 6.0 L Albumin 2.3 L Impressions: Renal Ultrasound 10/11/16 00:00 IMPRESSION: Small ascites. Otherwise unremarkable renal sonogram. Chest X-Ray 10/11/16 00:05 IMPRESSION: No acute cardiopulmonary findings. Right internal jugular central line tip at the level of the right atrium ; consider 5 cm retraction. Modified Barium Swallow 10/13/16 00:00 IMPRESSION: LARYNGEAL PENETRATION WITHOUT ASPIRATION DESCRIBED. PLEASE SEE SPEECH PATHOLOGIST REPORT FOR OTHER FINDINGS AND RECOMMENDATIONS. KUB X-Ray 10/14/16 00:00 IMPRESSION: Developing small-bowel distention. There is air and contrast throughout the colon from yesterday. Findings most likely represent ileus. Assessment & Plan - Diagnosis (1) Acute kidney injury Is this a current diagnosis for this admission?: YesPlan: Ct with IV fluids half normal saline at 75 cc/hr; Avoid all nephrotoxics; strict input/out put chart; daily wt. F/u home theatre technician, Dr Boyd for mgt. (2) Metabolic acidosis, increased anion gap Is this a current diagnosis for this admission?: YesPlan: Ct with IV Fluids half normal saline at 75 cc/hr; Strict input/out put chart; monitor chemistry daily. (3) Hypokalemia Is this a current diagnosis for this admission?: YesPlan: KCL 20 MEQ IV x2; KCL 20MEQ liquid form po daily; Mg is normal at 2.0. Monitor chemistry daily (4) Oropharyngeal candidiasis Is this a current diagnosis for this admission?: YesPlan: Ct with Nystatin swish and swallow 5mls q6h po (5) Ileus Is this a current diagnosis for this admission?: YesPlan: Pt is on full liquid diet; Ct with IV fluids ; Monitor chemistry daily and ensure adequate correction of hypokalemia. (6) Hyperkalemia Is this a current diagnosis for this admission?: Yes (7) Acute hypernatremia Is this a current diagnosis for this admission?: YesPlan: Switch him to half normal saline; he may eventually be switched to D5W since he cannot drink water presently due to swallowing difficulty. Monitor chemistry daily. (8) Thrombocythemia Is this a current diagnosis for this admission?: YesPlan: Monitor CBC daily and monitor for bleeding.CT with conservative mgt. (9) Reflux esophagitis Is this a current diagnosis for this admission?: YesPlan: Ct with Protonix 40 mg daily iV. (10) DVT prophylaxis Is this a current diagnosis for this admission?: YesPlan: Ct with SCD; avoid Lovenox due to thrombocytopenia. (11) Cigarette smoker Is this a current diagnosis for this admission?: YesPlan: Ct with Nicotine patch 21 mg daily. (12) Constipation Is this a current diagnosis for this admission?: YesPlan: Give fleet enema x1; Miralax 17 g daily prn. - Time Time Spent with patient: 35 or more minutes Smoking Cessation Education: 3 to 10 minutes Medications reviewed and adjusted accordingly: Yes Anticipated discharge: Acute Rehab Within: within 72 hours
[2016-10-19] MEDS: DEXTROSE 5%-WATER 1000 ML 1,000 ML with POTASSIUM CHLORIDE 20 MEQ IV PRN ×2 (15:42)
--- NOTE | 2016-10-19 17:31 | PDOC PROGRESS REPORT ---
Subjective Progress Note for:: 10/19/16 Subjective:: Patient was seen in the hospital today. He looks quite weak and debilitated.He has not been able to eat hardly anything. Still continues to stay on half normal saline. Is making reasonable amounts of urine. However he has not had much bowel movements until earlier this morning. He denies any history of abdominal pains. However his abdomen is distended as can be seen through the sheets. No history of any fever chills. No history of any chest pain shortness of breath.Labs were reviewed. It shows low potassium and abnormal liver enzymes. He denies any history of hepatitis.Not very forthcoming on his history of alcoholism. Physical Exam Vital Signs: Temp Pulse Resp BP Pulse Ox 98.0 F 94 19 104/62 91 L 10/19/16 16:13 10/19/16 16:13 10/19/16 16:13 10/19/16 16:13 10/19/16 16:13 Intake & Output 10/18/16 10/19/16 10/20/16 06:59 06:59 06:59 Intake Total 2337 1400 100 Output Total 700 850 100 Balance 1637 550 0 Weight 74 kg 75.1 kg General appearance: PRESENT: no acute distress, disheveled, thin Exam: Looks quite debilitated Respiratory exam: PRESENT: clear to auscultation fadi, decreased breath sounds, symmetrical, unlabored. ABSENT: crackles, rhonchi Cardiovascular exam: PRESENT: +S1, +S2, systolic murmur GI/Abdominal exam: PRESENT: distended, firm, hypoactive bowel sounds, soft, tenderness - Mild in the left upper quadrant. ABSENT: guarding, mass, Montes's sign, organomegaly, rebound Extremities exam: ABSENT: pedal edema Neurological exam: PRESENT: awake, oriented to person, oriented to place, oriented to time Skin exam: PRESENT: dry. ABSENT: cyanosis, erythema, mottled, rash Results Laboratory Results: 10/19/16 04:48 10/19/16 04:48 10/19/16 10/19/16 04:48 04:48 WBC 5.6 RBC 4.69 Hgb 11.7 L Hct 36.3 L MCV 77 L MCH 25.0 L MCHC 32.3 RDW 18.2 H Plt Count 45 L Seg Neutrophils % 61.8 Lymphocytes % 21.3 Monocytes % 9.4 Eosinophils % 5.9 Basophils % 1.6 Absolute Neutrophils 3.4 Absolute Lymphocytes 1.2 Absolute Monocytes 0.5 Absolute Eosinophils 0.3 Absolute Basophils 0.1 Sodium 150.6 H Potassium 3.6 Chloride 118 H Carbon Dioxide 16 L Anion Gap 17 BUN 39 H Creatinine 1.40 H Est GFR ( Amer) > 60 Est GFR (Non-Af Amer) 50 L Glucose 77 Calcium 8.4 Total Bilirubin 1.0 AST 61 H ALT 23 Alkaline Phosphatase 78 Total Protein 6.0 L Albumin 2.3 L Impressions: Renal Ultrasound 10/11/16 00:00 IMPRESSION: Small ascites. Otherwise unremarkable renal sonogram. Chest X-Ray 10/11/16 00:05 IMPRESSION: No acute cardiopulmonary findings. Right internal jugular central line tip at the level of the right atrium ; consider 5 cm retraction. Modified Barium Swallow 10/13/16 00:00 IMPRESSION: LARYNGEAL PENETRATION WITHOUT ASPIRATION DESCRIBED. PLEASE SEE SPEECH PATHOLOGIST REPORT FOR OTHER FINDINGS AND RECOMMENDATIONS. KUB X-Ray 10/14/16 00:00 IMPRESSION: Developing small-bowel distention. There is air and contrast throughout the colon from yesterday. Findings most likely represent ileus. Assessment & Plan - Diagnosis (1) Acute kidney injury Is this a current diagnosis for this admission?: YesPlan: Nonoliguric. He has markedly improved renal numbers currently with a creatinine 1.4 as compared to his initial presentation of 13+. Electrolytes are fair but for low potassium and hyper natremia which needs to be corrected. Will make appropriate adjustments. (2) Hyperkalemia Is this a current diagnosis for this admission?: Yes (3) Hypotension Qualifiers: Hypotension type: unspecified hypotension type Qualified Code(s): I95.9 - Hypotension, unspecified Plan: Now stable and normotensive (4) Metabolic acidosis, increased anion gap Is this a current diagnosis for this admission?: YesPlan: Start oral replacements. monitor (5) Severe dehydration Plan: Looks reasonably corrected. Change fluids to D5W given his hyper natremia. (6) Acute hypernatremia Is this a current diagnosis for this admission?: YesPlan: We will change fluids to D5W and monitor (7) Adynamic ileus Is this a current diagnosis for this admission?: Yes (8) Ascites Plan: He seems to have ascites with fluid shift. We will get liver workup done, including a PT PTT. If his labs are normal then plan to do a diagnostic/ therapeutic abdominal ultrasound to see if he can extract fluid from his belly.Orders for the abdominal ultrasound and diagnostic/therapeutic tap will be done tomorrow after the labs is seen. Discussed with Verónica the treating nurse.
[2016-10-19] MEDS: SODIUM BICARBONATE 650 MG TABLET PO SCH (21:11)
[2016-10-20 05:25] LABS: PROTHROMBIN TIME 24.5 SEC (11.4-15.4)
[2016-10-20 05:26] LABS: PARTIAL THROMBOPLASTIN TIME 42.7 SEC (23.5-35.8)
[2016-10-20 05:42] LABS: ALANINE AMINOTRANSFERASE 26 U/L (21-72); ALBUMIN 2.3 g/dL (3.5-5.0); ALKALINE PHOSPHATASE 80 U/L (38-126); ANION GAP 13 (5-19); ASPARTATE AMINO TRANSFERASE 66 U/L (17-59); BLOOD UREA NITROGEN 37 mg/dL (7-20); CALCIUM 8.6 mg/dL (8.4-10.2); CARBON DIOXIDE 18 mmol/L (22-30); CHLORIDE 118 mmol/L (98-107); CREATININE RESULT 1.48 mg/dL (0.52-1.25); GLUCOSE 95 mg/dL (75-110); POTASSIUM 3.8 mmol/L (3.6-5.0); SODIUM 148.8 mmol/L (137-145); TOTAL PROTEIN 5.9 g/dL (6.3-8.2)
[2016-10-20 05:45] LABS: ABSOLUTE BASOPHILS # (AUTO) 0.1 10^3/uL (0.0-0.2); ABSOLUTE EOSINOPHILS # (AUTO) 0.3 10^3/uL (0.0-0.6); ABSOLUTE LYMPHOCYTES (AUTO) 1.2 10^3/uL (0.5-4.7); ABSOLUTE MONOCYTES (AUTO) 0.5 10^3/uL (0.1-1.4); ABSOLUTE NEUT (AUTO) 3.3 10^3/uL (1.7-8.2); BASOPHILS % (AUTO) 1.3 % (0-2); EOSINOPHILS % (AUTO) 5.6 % (0-6); HEMOGLOBIN 11.5 g/dL (13.5-17.0); HGB HCT DIFFERENCE -1.5; MEAN CORPUSCULAR HEMOGLOBIN 24.7 pg (27.0-33.4); MEAN CORPUSCULAR HGB CONC 31.9 g/dL (32.0-36.0); MEAN CORPUSCULAR VOLUME 77 fl (80-97); RED BLOOD COUNT 4.65 10^6/uL (4.35-5.55); RED CELL DISTRIBUTION WIDTH 18.7 % (11.5-14.0); SEGMENTED NEUTROPHILS % (AUTO) 62.1 % (42-78); WHITE BLOOD COUNT 5.3 10^3/uL (4.0-10.5)
[2016-10-20] MEDS: POTASSIUM CHLORIDE 20 MEQ/15 ML UDCUP PO SCH (09:23)
[2016-10-20] MEDS: SODIUM BICARBONATE 650 MG TABLET PO SCH ×2 (09:24→21:14)
[2016-10-20] MEDS: NYSTATIN 500000 UNIT/5 ML UDCUP PO SCH ×2 (09:24→13:47)
[2016-10-20] MEDS: NICOTINE 21 MG/24 HR PATCH.TD24 TD SCH (09:24)
[2016-10-20] MEDS ORDERED: PHYTONADIONE 5 MG TABLET PO SCH (12:15)
[2016-10-20] MEDS: DEXTROSE 5%-WATER 1000 ML 1,000 ML with POTASSIUM CHLORIDE 20 MEQ IV PRN ×2 (12:24)
[2016-10-20] MEDS ORDERED: PHYTONADIONE INJ 10 MG/1 ML AMPULE SUBCUT ONE ×2 (12:45→19:00)
[2016-10-20] MEDS ORDERED: PHYTONADIONE 5 MG TABLET PO ONE (13:00)
--- NOTE | 2016-10-20 13:19 | PDOC PROGRESS REPORT ---
Subjective Progress Note for:: 10/20/16 Subjective:: He is still dehydrated and mild ly hypotensive. He had swallowing evaluation today and recommendation is nectar thick liquid and to progress to pureed diet and to get cookie swallow test later. He is hypernatremic and has been switched to half normal saline solution in addition to bicarbonate solution. Discussed at length with pt's sister, Ms Johnson about his plan of care and addressed all her concerns. He had Cookie swallow on 10/13/2016 and the recommendations are- fully upright during meal; puree, thin diet; alternate bites and sips; Aspiration precautions. We will add Nystatin swish and swallow for possible oropharyngeal candidiasis. His potassium dropped to 3.1; we gave him KCL 20 mEQ x2 doses; KUB showed ileus and it was managed conservatively and it has resolved. He is now on full liquid diet but has not had bowel movement. We will give him fleet enemax1. He was to get up and walk up to the door with physical therapist today. He had large bowel movement last night and this morning. His potassium dropped to 3.3; we will give him KCL 20 MEQ IV x2 and KCL 20 MEQ liquid form P.O. daily.He was able to get up from bed and sit on the chair for about 30 minutes. He will need short term REHAB for deconditioning, though pt is refusing. I D/W his sister extensively about his plan of care. She agreed with short term REHAB. Pt has not been eating much and eats more of liquid food. His sister has a concern about this and we will get GI consult to evaluate for dysphagia and odynophagia for possible EGD. He has ascites and is to get paracentesis today but his iNR is 2.1. He was given Vitamin K 5 mg po earlier. I ordered another Vitamin K 5 mg Subcut x1. We will recheck PT/INR later and review with Abd. US that is ordered. He has hx of chronic alcoholism. Hepatitis serology is pending. Physical Exam Vital Signs: Temp Pulse Resp BP Pulse Ox 97.3 F 98 20 108/75 97 10/20/16 11:34 10/20/16 11:34 10/20/16 11:34 10/20/16 11:34 10/20/16 11:34 Intake & Output 10/19/16 10/20/16 10/21/16 06:59 06:59 06:59 Intake Total 1400 1138 125 Output Total 850 345 50 Balance 550 793 75 Weight 75.1 kg 76.9 kg General appearance: PRESENT: no acute distress, thin Head exam: PRESENT: atraumatic, normocephalic Eye exam: PRESENT: EOMI, PERRLA Mouth exam: PRESENT: neck supple, tongue midline Respiratory exam: PRESENT: clear to auscultation fadi, symmetrical Cardiovascular exam: PRESENT: +S1, +S2 GI/Abdominal exam: PRESENT: ascites, distended, normal bowel sounds, soft Rectal exam: PRESENT: deferred Neurological exam: PRESENT: alert, oriented to person, oriented to place, oriented to time Psychiatric exam: PRESENT: normal mood Results Laboratory Results: 10/20/16 04:14 10/20/16 04:14 10/20/16 10/20/16 04:14 04:14 WBC 5.3 RBC 4.65 Hgb 11.5 L Hct 36.0 L MCV 77 L MCH 24.7 L MCHC 31.9 L RDW 18.7 H Plt Count 38 L Seg Neutrophils % 62.1 Lymphocytes % 22.0 Monocytes % 9.0 Eosinophils % 5.6 Basophils % 1.3 Absolute Neutrophils 3.3 Absolute Lymphocytes 1.2 Absolute Monocytes 0.5 Absolute Eosinophils 0.3 Absolute Basophils 0.1 Sodium 148.8 H Potassium 3.8 Chloride 118 H Carbon Dioxide 18 L Anion Gap 13 BUN 37 H Creatinine 1.48 H Est GFR ( Amer) 57 L Est GFR (Non-Af Amer) 47 L Glucose 95 Calcium 8.6 Ferritin 798.00 H Total Bilirubin 1.0 AST 66 H ALT 26 Alkaline Phosphatase 80 Total Protein 5.9 L Albumin 2.3 L Impressions: Renal Ultrasound 10/11/16 00:00 IMPRESSION: Small ascites. Otherwise unremarkable renal sonogram. Chest X-Ray 10/11/16 00:05 IMPRESSION: No acute cardiopulmonary findings. Right internal jugular central line tip at the level of the right atrium ; consider 5 cm retraction. Modified Barium Swallow 10/13/16 00:00 IMPRESSION: LARYNGEAL PENETRATION WITHOUT ASPIRATION DESCRIBED. PLEASE SEE SPEECH PATHOLOGIST REPORT FOR OTHER FINDINGS AND RECOMMENDATIONS. KUB X-Ray 10/14/16 00:00 IMPRESSION: Developing small-bowel distention. There is air and contrast throughout the colon from yesterday. Findings most likely represent ileus. Assessment & Plan - Diagnosis (1) Acute kidney injury Is this a current diagnosis for this admission?: YesPlan: Ct with IV fluids D5 W with KCL 40 MEQ at 50 cc/hr; Ct with Sodium bicarbonate 1300 mg BID PO.Avoid all nephrotoxics; Monitor chemistry daily. strict input/ out put chart; daily wt. F/u sliver handler, Dr Boyd for mgt. (2) Metabolic acidosis, increased anion gap Is this a current diagnosis for this admission?: YesPlan: Ct with IV Fluids D%W plus 40 MEQ of KCL at 50cc/hr; Strict input/out put chart ; monitor chemistry daily. (3) Hypokalemia Is this a current diagnosis for this admission?: YesPlan: KCL 20 MEQ IV x2; KCL 20MEQ liquid form po daily; Ct with IV fluid D5W plus 40 MEQ of KCL at 50 cc/hr;Mg is normal at 2.0. Monitor chemistry daily (4) Oropharyngeal candidiasis Is this a current diagnosis for this admission?: YesPlan: Ct with Nystatin swish and swallow 5mls q6h po (5) Ascites Is this a current diagnosis for this admission?: YesPlan: Pt has Vitamin K 5mg pox1; had Vitamin K 5 mg subcut x1; f/u repeat PT/INR; for paracentesis later; f/u hepatitis serology; f/u Abd. US report. (6) Ileus Is this a current diagnosis for this admission?: YesPlan: Pt is on full liquid diet; Ct with IV fluids ; Monitor chemistry daily and ensure adequate correction of hypokalemia. (7) Hyperkalemia Is this a current diagnosis for this admission?: Yes (8) Acute hypernatremia Is this a current diagnosis for this admission?: YesPlan: Ct with D5W plus 40 MEQ of KCL at 50 cc/hr. Ct with free water prn as tolerated.. Monitor chemistry daily. (9) Thrombocythemia Is this a current diagnosis for this admission?: YesPlan: Monitor CBC daily and monitor for bleeding.CT with conservative mgt. (10) Reflux esophagitis Is this a current diagnosis for this admission?: YesPlan: Ct with Protonix 40 mg daily iV. (11) DVT prophylaxis Is this a current diagnosis for this admission?: YesPlan: Ct with SCD; avoid Lovenox due to thrombocytopenia. (12) Cigarette smoker Is this a current diagnosis for this admission?: YesPlan: Ct with Nicotine patch 21 mg daily. (13) Constipation Is this a current diagnosis for this admission?: YesPlan: Give fleet enema x1; Miralax 17 g daily prn.
[2016-10-20 15:41] LABS: PROTHROMBIN TIME 24.5 SEC (11.4-15.4)
[2016-10-20 15:55] LABS: APPEARANCE,URINE CLEAR; BILIRUBIN,URINE NEGATIVE (NEGATIVE); GLUCOSE, URINE NEGATIVE (NEGATIVE); KETONES,URINE NEGATIVE (NEGATIVE); LEUKOCYTE ESTERASE,URINE NEGATIVE (NEGATIVE); NITRITE,URINE NEGATIVE (NEGATIVE); PROTEIN,URINE NEGATIVE (NEGATIVE); URINE SPECIFIC GRAVITY 1.012; UROBILINOGEN,URINE NEGATIVE mg/dL (<2.0)
[2016-10-21 06:20] LABS: ABSOLUTE BASOPHILS # (AUTO) 0.1 10^3/uL (0.0-0.2); ABSOLUTE EOSINOPHILS # (AUTO) 0.3 10^3/uL (0.0-0.6); ABSOLUTE LYMPHOCYTES (AUTO) 1.1 10^3/uL (0.5-4.7); ABSOLUTE MONOCYTES (AUTO) 0.4 10^3/uL (0.1-1.4); ABSOLUTE NEUT (AUTO) 3.6 10^3/uL (1.7-8.2); EOSINOPHILS % (AUTO) 4.9 % (0-6); HEMATOCRIT 36.4 % (37.9-51.0); HEMOGLOBIN 11.6 g/dL (13.5-17.0); HGB HCT DIFFERENCE -1.6; LYMPHOCYTES % (AUTO) 19.6 % (13-45); MEAN CORPUSCULAR HEMOGLOBIN 24.9 pg (27.0-33.4); MEAN CORPUSCULAR VOLUME 78 fl (80-97); MONOCYTES % (AUTO) 8.2 % (3-13); RED BLOOD COUNT 4.67 10^6/uL (4.35-5.55); SEGMENTED NEUTROPHILS % (AUTO) 66.3 % (42-78); WHITE BLOOD COUNT 5.4 10^3/uL (4.0-10.5)
[2016-10-21 06:28] LABS: ALANINE AMINOTRANSFERASE 21 U/L (21-72); ALBUMIN 2.4 g/dL (3.5-5.0); ALKALINE PHOSPHATASE 85 U/L (38-126); ANION GAP 11 (5-19); ASPARTATE AMINO TRANSFERASE 64 U/L (17-59); BILIRUBIN,TOTAL 1.5 mg/dL (0.2-1.3); BLOOD UREA NITROGEN 35 mg/dL (7-20); CALCIUM 8.8 mg/dL (8.4-10.2); CARBON DIOXIDE 19 mmol/L (22-30); CHLORIDE 117 mmol/L (98-107); CREATININE RESULT 1.39 mg/dL (0.52-1.25); GLUCOSE 97 mg/dL (75-110); SODIUM 147.3 mmol/L (137-145); TOTAL PROTEIN 5.7 g/dL (6.3-8.2)
[2016-10-21 07:13] LABS: ANISOCYTOSIS 2+; HYPOCHROMASIA 1+; MICROCYTOSIS SLIGHT
[2016-10-21] MEDS: POTASSIUM CHLORIDE 20 MEQ/15 ML UDCUP PO SCH (09:27)
[2016-10-21] MEDS: SODIUM BICARBONATE 650 MG TABLET PO SCH ×2 (09:27→21:24)
[2016-10-21] MEDS: NICOTINE 21 MG/24 HR PATCH.TD24 TD SCH (09:28)
[2016-10-21 09:41] LABS: HEPATITIS C VIRUS AB >11.0 s/co ratio (0.0-0.9)
[2016-10-21] MEDS: DEXTROSE 5%-WATER 1000 ML 1,000 ML with POTASSIUM CHLORIDE 20 MEQ IV PRN ×2 (10:11)
--- NOTE | 2016-10-21 17:04 | PDOC PROGRESS REPORT ---
Subjective Progress Note for:: 10/21/16 Subjective:: He is still dehydrated and mild ly hypotensive. He had swallowing evaluation today and recommendation is nectar thick liquid and to progress to pureed diet and to get cookie swallow test later. He is hypernatremic and has been switched to half normal saline solution in addition to bicarbonate solution. Discussed at length with pt's sister, Ms Johnson about his plan of care and addressed all her concerns. He had Cookie swallow on 10/13/2016 and the recommendations are- fully upright during meal; puree, thin diet; alternate bites and sips; Aspiration precautions. We will add Nystatin swish and swallow for possible oropharyngeal candidiasis. His potassium dropped to 3.1; we gave him KCL 20 mEQ x2 doses; KUB showed ileus and it was managed conservatively and it has resolved. He is now on full liquid diet but has not had bowel movement. We will give him fleet enemax1. He was to get up and walk up to the door with physical therapist today. He had large bowel movement last night and this morning. His potassium dropped to 3.3; we will give him KCL 20 MEQ IV x2 and KCL 20 MEQ liquid form P.O. daily.He was able to get up from bed and sit on the chair for about 30 minutes. He will need short term REHAB for deconditioning, though pt is refusing. I D/W his sister extensively about his plan of care. She agreed with short term REHAB. Pt has not been eating much and eats more of liquid food. His sister has a concern about this and we will get GI consult to evaluate for dysphagia and odynophagia for possible EGD. He has ascites and is to get paracentesis today but his INR is 2.1. He was given Vitamin K 5 mg po earlier. I ordered another Vitamin K 5 mg Subcut x1. We will recheck PT/INR later and review with Abd. US that is ordered. He has hx of chronic alcoholism. Hepatitis serology is pending. Abd. US confirmed massive ascites and liver masses. Paracentesis has not been done yet since platelets was 36 and 3 units of platelets ordered to be transfused, but it is still pending. We will get CT abdomen without contrast to evaluate liver mass more as recommended. Pt could not be seen by GI since there is no GI consult available till 10/24/2016. Physical Exam Vital Signs: Temp Pulse Resp BP Pulse Ox 97.3 F 96 19 109/84 91 L 10/21/16 15:59 10/21/16 15:59 10/21/16 15:59 10/21/16 15:59 10/21/16 15:59 Intake & Output 10/20/16 10/21/16 10/22/16 06:59 06:59 06:59 Intake Total 1138 1875 0 Output Total 345 375 50 Balance 793 1500 -50 Weight 76.9 kg 74.6 kg General appearance: PRESENT: no acute distress, thin Head exam: PRESENT: atraumatic, normocephalic Eye exam: PRESENT: EOMI, PERRLA Ear exam: PRESENT: normal external ear exam Mouth exam: PRESENT: neck supple, tongue midline Respiratory exam: PRESENT: clear to auscultation fadi, symmetrical Cardiovascular exam: PRESENT: +S1, +S2 GI/Abdominal exam: PRESENT: ascites, normal bowel sounds, soft Rectal exam: PRESENT: deferred Neurological exam: PRESENT: alert, oriented to person, oriented to place, oriented to time Results Laboratory Results: 10/21/16 04:48 10/21/16 04:48 10/21/16 10/21/16 10/21/16 04:48 04:48 09:43 WBC 5.4 RBC 4.67 Hgb 11.6 L Hct 36.4 L MCV 78 L MCH 24.9 L MCHC 32.0 RDW 19.0 H Plt Count 36 L Seg Neutrophils % 66.3 Lymphocytes % 19.6 Monocytes % 8.2 Eosinophils % 4.9 Basophils % 1.0 Absolute Neutrophils 3.6 Absolute Lymphocytes 1.1 Absolute Monocytes 0.4 Absolute Eosinophils 0.3 Absolute Basophils 0.1 Sodium 147.3 H Potassium 4.0 Chloride 117 H Carbon Dioxide 19 L Anion Gap 11 BUN 35 H Creatinine 1.39 H Est GFR ( Amer) > 60 Est GFR (Non-Af Amer) 51 L Glucose 97 Calcium 8.8 Total Bilirubin 1.5 H AST 64 H ALT 21 Alkaline Phosphatase 85 Total Protein 5.7 L Albumin 2.4 L Blood Type B POSITIVE Antibody Screen NEGATIVE Impressions: Renal Ultrasound 10/11/16 00:00 IMPRESSION: Small ascites. Otherwise unremarkable renal sonogram. Chest X-Ray 10/11/16 00:05 IMPRESSION: No acute cardiopulmonary findings. Right internal jugular central line tip at the level of the right atrium ; consider 5 cm retraction. Modified Barium Swallow 10/13/16 00:00 IMPRESSION: LARYNGEAL PENETRATION WITHOUT ASPIRATION DESCRIBED. PLEASE SEE SPEECH PATHOLOGIST REPORT FOR OTHER FINDINGS AND RECOMMENDATIONS. KUB X-Ray 10/14/16 00:00 IMPRESSION: Developing small-bowel distention. There is air and contrast throughout the colon from yesterday. Findings most likely represent ileus. Abdomen Ultrasound 10/21/16 00:00 IMPRESSION: The diffusely abnormal liver with possible multiple masses. Markedly enlarged. Recanalization umbilical vein. Main portal vein has normal directional flow. Hepatic veins poorly seen. Assessment & Plan - Diagnosis (1) Acute kidney injury Is this a current diagnosis for this admission?: YesPlan: Ct with IV fluids D5 W with KCL 40 MEQ at 50 cc/hr; Ct with Sodium bicarbonate 1300 mg BID PO.Avoid all nephrotoxics; Monitor chemistry daily. strict input/ out put chart; daily wt. F/u master fisher, Dr Boyd for mgt. (2) Metabolic acidosis, increased anion gap Is this a current diagnosis for this admission?: YesPlan: Ct with IV Fluids D%W plus 40 MEQ of KCL at 50cc/hr; Strict input/out put chart ; monitor chemistry daily. (3) Cirrhosis of liver with ascites Is this a current diagnosis for this admission?: YesPlan: For transfusion of 3 units of platelets when available; then diagnostic and therapeutic paracentesis as requested. For CT abdomen without contrast due to hx of acute kidney injury. For GI consult when available. Monitor pt closely. (4) Hypokalemia Is this a current diagnosis for this admission?: YesPlan: KCL 20 MEQ IV x2; KCL 20MEQ liquid form po daily; Ct with IV fluid D5W plus 40 MEQ of KCL at 50 cc/hr;Mg is normal at 2.0. Monitor chemistry daily (5) Oropharyngeal candidiasis Is this a current diagnosis for this admission?: YesPlan: Ct with Nystatin swish and swallow 5mls q6h po (6) Ascites Is this a current diagnosis for this admission?: Yes (7) Ileus Is this a current diagnosis for this admission?: YesPlan: Pt is on full liquid diet; Ct with IV fluids ; Monitor chemistry daily and ensure adequate correction of hypokalemia. (8) Hyperkalemia Is this a current diagnosis for this admission?: Yes (9) Acute hypernatremia Is this a current diagnosis for this admission?: YesPlan: Ct with D5W plus 40 MEQ of KCL at 50 cc/hr. Ct with free water prn as tolerated.. Monitor chemistry daily. (10) Thrombocythemia Is this a current diagnosis for this admission?: YesPlan: Monitor CBC daily and monitor for bleeding.CT with conservative mgt. (11) Reflux esophagitis Is this a current diagnosis for this admission?: YesPlan: Ct with Protonix 40 mg daily iV. (12) DVT prophylaxis Is this a current diagnosis for this admission?: YesPlan: Ct with SCD; avoid Lovenox due to thrombocytopenia. (13) Cigarette smoker Is this a current diagnosis for this admission?: YesPlan: Ct with Nicotine patch 21 mg daily. (14) Constipation Is this a current diagnosis for this admission?: YesPlan: Give fleet enema x1; Miralax 17 g daily prn.
[2016-10-21] MEDS ORDERED: PHYTONADIONE INJ 10 MG/1 ML AMPULE SUBCUT ONE (18:30)
[2016-10-22 05:36] LABS: PARTIAL THROMBOPLASTIN TIME 38.1 SEC (23.5-35.8)
[2016-10-22 05:51] LABS: ALANINE AMINOTRANSFERASE 23 U/L (21-72); ALBUMIN 2.5 g/dL (3.5-5.0); ALKALINE PHOSPHATASE 84 U/L (38-126); ANION GAP 11 (5-19); ASPARTATE AMINO TRANSFERASE 62 U/L (17-59); BILIRUBIN,TOTAL 1.6 mg/dL (0.2-1.3); BLOOD UREA NITROGEN 34 mg/dL (7-20); CARBON DIOXIDE 20 mmol/L (22-30); CHLORIDE 117 mmol/L (98-107); CREATININE RESULT 1.36 mg/dL (0.52-1.25); GLUCOSE 101 mg/dL (75-110); POTASSIUM 4.2 mmol/L (3.6-5.0); SODIUM 147.9 mmol/L (137-145); TOTAL PROTEIN 6.1 g/dL (6.3-8.2)
[2016-10-22 05:58] LABS: ABSOLUTE BASOPHILS # (AUTO) 0.1 10^3/uL (0.0-0.2); ABSOLUTE EOSINOPHILS # (AUTO) 0.2 10^3/uL (0.0-0.6); ABSOLUTE LYMPHOCYTES (AUTO) 0.9 10^3/uL (0.5-4.7); ABSOLUTE MONOCYTES (AUTO) 0.4 10^3/uL (0.1-1.4); ABSOLUTE NEUT (AUTO) 3.4 10^3/uL (1.7-8.2); BASOPHILS % (AUTO) 1.3 % (0-2); EOSINOPHILS % (AUTO) 4.4 % (0-6); HEMATOCRIT 35.6 % (37.9-51.0); HEMOGLOBIN 11.4 g/dL (13.5-17.0); HGB HCT DIFFERENCE -1.4; LYMPHOCYTES % (AUTO) 18.5 % (13-45); MEAN CORPUSCULAR HGB CONC 32.1 g/dL (32.0-36.0); MEAN CORPUSCULAR VOLUME 78 fl (80-97); MONOCYTES % (AUTO) 8.6 % (3-13); RED BLOOD COUNT 4.58 10^6/uL (4.35-5.55); RED CELL DISTRIBUTION WIDTH 18.9 % (11.5-14.0); SEGMENTED NEUTROPHILS % (AUTO) 67.2 % (42-78); WHITE BLOOD COUNT 5.1 10^3/uL (4.0-10.5)
[2016-10-22] MEDS: NICOTINE 21 MG/24 HR PATCH.TD24 TD SCH (09:15)
--- NOTE | 2016-10-22 09:36 | PDOC PROGRESS REPORT ---
Subjective Progress Note for:: 10/22/16 Subjective:: Patient denies any shortness of breath. Denies any chills or fever. Denies any pain at this time. Abdomen has been distended and awaiting paracentesis. Patient is getting 3 platelets. He is coagulopathic and received vitamin K. CT of the abdomen and pelvis unsure about cirrhosis or malignancy. Physical Exam Vital Signs: Temp Pulse Resp BP Pulse Ox 98.2 F 99 24 H 108/81 92 10/22/16 08:57 10/22/16 08:57 10/22/16 08:57 10/22/16 08:57 10/22/16 08:57 Intake & Output 10/21/16 10/22/16 10/23/16 06:59 06:59 07:59 Intake Total 1875 1064 498 Output Total 375 275 Balance 1500 789 498 Weight 74.6 kg 74.6 kg General appearance: PRESENT: no acute distress, cooperative Head exam: PRESENT: normocephalic Eye exam: PRESENT: EOMI Mouth exam: PRESENT: moist, neck supple Neck exam: PRESENT: JVD - Prominent neck vein Respiratory exam: PRESENT: decreased breath sounds - Lower lung dav[place]son. ABSENT : rhonchi, wheezes Cardiovascular exam: PRESENT: RRR. ABSENT: gallop GI/Abdominal exam: PRESENT: distended, hypoactive bowel sounds, soft Extremities exam: ABSENT: pedal edema Neurological exam: PRESENT: alert, awake, oriented to situation Skin exam: PRESENT: dry, warm. ABSENT: cyanosis Results Laboratory Results: 10/22/16 04:15 10/22/16 04:15 10/21/16 10/22/16 10/22/16 09:43 04:15 04:15 WBC 5.1 RBC 4.58 Hgb 11.4 L Hct 35.6 L MCV 78 L MCH 25.0 L MCHC 32.1 RDW 18.9 H Plt Count 34 L Seg Neutrophils % 67.2 Lymphocytes % 18.5 Monocytes % 8.6 Eosinophils % 4.4 Basophils % 1.3 Absolute Neutrophils 3.4 Absolute Lymphocytes 0.9 Absolute Monocytes 0.4 Absolute Eosinophils 0.2 Absolute Basophils 0.1 Sodium 147.9 H Potassium 4.2 Chloride 117 H Carbon Dioxide 20 L Anion Gap 11 BUN 34 H Creatinine 1.36 H Est GFR ( Amer) > 60 Est GFR (Non-Af Amer) 52 L Glucose 101 Calcium 9.0 Total Bilirubin 1.6 H AST 62 H ALT 23 Alkaline Phosphatase 84 Total Protein 6.1 L Albumin 2.5 L Blood Type B POSITIVE Antibody Screen NEGATIVE Impressions: Renal Ultrasound 10/11/16 00:00 IMPRESSION: Small ascites. Otherwise unremarkable renal sonogram. Chest X-Ray 10/11/16 00:05 IMPRESSION: No acute cardiopulmonary findings. Right internal jugular central line tip at the level of the right atrium ; consider 5 cm retraction. Modified Barium Swallow 10/13/16 00:00 IMPRESSION: LARYNGEAL PENETRATION WITHOUT ASPIRATION DESCRIBED. PLEASE SEE SPEECH PATHOLOGIST REPORT FOR OTHER FINDINGS AND RECOMMENDATIONS. KUB X-Ray 10/14/16 00:00 IMPRESSION: Developing small-bowel distention. There is air and contrast throughout the colon from yesterday. Findings most likely represent ileus. Abdomen CT 10/21/16 00:00 IMPRESSION: OVERALL EVALUATION IS SIGNIFICANTLY LIMITED DUE TO LACK OF CONTRAST MATERIAL AND LARGE VOLUME ASCITES. DIFFUSE IRREGULAR LOW ATTENUATION INVOLVING THE LEFT HEPATIC LOBE WITH SCATTERED ILL-DEFINED LOW ATTENUATING LESIONS IN THE RIGHT HEPATIC LOBE DESCRIBED ABOVE IN THE SETTING OF UNDERLYING CIRRHOSIS. FINDINGS ARE CONCERNING FOR MULTIFOCAL HEPATOCELLULAR CARCINOMA. CORRELATE WITH LABORATORY VALUES AND CONSIDER CONTRAST-ENHANCED CT OR MRI IF RENAL FUNCTION PERMITS VERSUS BIOPSY. SINGLE SCLEROTIC LESION SEEN WITHIN THE T9 VERTEBRAL BODY. 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 MODERATE BILATERAL PLEURAL EFFUSIONS WITH ASSOCIATED COMPRESSIVE ATELECTASIS. SMALL AMOUNT OF RADIOPAQUE MATERIAL SEEN WITHIN THE LEFT LOWER LOBE MAY REPRESENT ASPIRATED MATERIAL FROM PRECEDING BARIUM SWALLOW. Abdomen Ultrasound 10/21/16 00:00 IMPRESSION: The diffusely abnormal liver with possible multiple masses. Markedly enlarged. Recanalization umbilical vein. Main portal vein has normal directional flow. Hepatic veins poorly seen. Assessment & Plan - Diagnosis (1) Acute renal failure Qualifiers: Acute renal failure type: unspecified Qualified Code(s): N17.9 - Acute kidney failure, unspecified Is this a current diagnosis for this admission?: Yes (2) Adynamic ileus Is this a current diagnosis for this admission?: Yes (3) Ascites Qualifiers: Ascites type: other type Qualified Code(s): R18.8 - Other ascites Is this a current diagnosis for this admission?: Yes (4) Cirrhosis of liver with ascites Qualifiers: Hepatic cirrhosis type: unspecified hepatic cirrhosis Qualified Code (s): K74.60 - Unspecified cirrhosis of liver Is this a current diagnosis for this admission?: Yes (5) Metabolic acidosis, increased anion gap Is this a current diagnosis for this admission?: Yes (6) Thrombocythemia Is this a current diagnosis for this admission?: Yes (7) Anemia of chronic disease Is this a current diagnosis for this admission?: Yes (8) Pleural effusion Is this a current diagnosis for this admission?: Yes (9) Hypernatremia Is this a current diagnosis for this admission?: Yes (10) Oropharyngeal candidiasis Is this a current diagnosis for this admission?: Yes (11) Coagulopathy Is this a current diagnosis for this admission?: Yes - Time Time Spent with patient: 25-34 minutes - Plan Summary Plan Summary: Awaiting paracentesis. May need to send fluid for cytology. His coagulation panel has improve after the vitamin K. We'll continue to monitor. Patient is already third spacing, we will put IV fluids to KVO. Monitor electrolytes.
[2016-10-22] MEDS: DEXTROSE 5%-WATER 1000 ML 1,000 ML with POTASSIUM CHLORIDE 20 MEQ IV PRN ×2 (09:38)
[2016-10-22] MEDS ORDERED: DEXTROSE 5%-WATER 1000 ML 1,000 ML with POTASSIUM CHLORIDE 20 MEQ IV PRN ×2 (09:38)
[2016-10-22 11:03] LABS: HEMATOCRIT 34.9 % (37.9-51.0); HGB HCT DIFFERENCE -1.9; MEAN CORPUSCULAR HEMOGLOBIN 24.9 pg (27.0-33.4); MEAN CORPUSCULAR HGB CONC 31.6 g/dL (32.0-36.0); MEAN CORPUSCULAR VOLUME 79 fl (80-97); RED BLOOD COUNT 4.43 10^6/uL (4.35-5.55); RED CELL DISTRIBUTION WIDTH 19.7 % (11.5-14.0); WHITE BLOOD COUNT 5.8 10^3/uL (4.0-10.5)
[2016-10-22] MEDS: SODIUM BICARBONATE 650 MG TABLET PO SCH ×2 (11:54→21:22)
[2016-10-22] MEDS: POTASSIUM CHLORIDE 20 MEQ/15 ML UDCUP PO SCH (11:56)
[2016-10-23 07:12] LABS: ANION GAP 10 (5-19); BLOOD UREA NITROGEN 28 mg/dL (7-20); CALCIUM 8.8 mg/dL (8.4-10.2); CARBON DIOXIDE 21 mmol/L (22-30); CHLORIDE 118 mmol/L (98-107); CREATININE RESULT 1.13 mg/dL (0.52-1.25); GLUCOSE 82 mg/dL (75-110); POTASSIUM 3.9 mmol/L (3.6-5.0); SODIUM 148.6 mmol/L (137-145)
[2016-10-23] MEDS: POTASSIUM CHLORIDE 20 MEQ/15 ML UDCUP PO SCH (09:30)
[2016-10-23] MEDS: SODIUM BICARBONATE 650 MG TABLET PO SCH ×2 (09:34→22:18)
[2016-10-23] MEDS: NICOTINE 21 MG/24 HR PATCH.TD24 TD SCH (09:34)
--- NOTE | 2016-10-23 10:32 | PDOC PROGRESS REPORT ---
Subjective Progress Note for:: 10/23/16 Subjective:: Patient had therapeutic paracenteses a total of about 5 L was obtained. Specimen was sent for cytology. Patient denies any abdominal pain, nausea or vomiting, chills or fever. Denies any shortness of breath. Hepatitis C is positive. Physical Exam Vital Signs: Temp Pulse Resp BP Pulse Ox 97.3 F 89 16 109/84 97 10/23/16 07:20 10/23/16 07:20 10/23/16 07:20 10/23/16 07:20 10/23/16 07:20 Intake & Output 10/22/16 10/23/16 10/24/16 05:59 06:59 06:59 Intake Total Output Total Balance Weight General appearance: PRESENT: no acute distress, cooperative Head exam: PRESENT: normocephalic Eye exam: PRESENT: EOMI Mouth exam: PRESENT: moist, neck supple Neck exam: ABSENT: JVD Respiratory exam: PRESENT: clear to auscultation fadi Cardiovascular exam: PRESENT: RRR. ABSENT: gallop GI/Abdominal exam: PRESENT: distended, hypoactive bowel sounds, soft Extremities exam: PRESENT: other - Trace edema bilateral Neurological exam: PRESENT: alert, awake, oriented to situation Skin exam: PRESENT: dry, warm. ABSENT: cyanosis Results Laboratory Results: 10/22/16 10:30 10/23/16 06:23 10/21/16 10/22/16 10/23/16 09:43 10:30 06:23 WBC 5.8 RBC 4.43 Hgb 11.0 L Hct 34.9 L MCV 79 L MCH 24.9 L MCHC 31.6 L RDW 19.7 H Plt Count 117 L D Sodium 148.6 H Potassium 3.9 Chloride 118 H Carbon Dioxide 21 L Anion Gap 10 BUN 28 H Creatinine 1.13 Est GFR ( Amer) > 60 Est GFR (Non-Af Amer) > 60 Glucose 82 Calcium 8.8 Blood Type B POSITIVE Antibody Screen NEGATIVE Impressions: Renal Ultrasound 10/11/16 00:00 IMPRESSION: Small ascites. Otherwise unremarkable renal sonogram. Chest X-Ray 10/11/16 00:05 IMPRESSION: No acute cardiopulmonary findings. Right internal jugular central line tip at the level of the right atrium ; consider 5 cm retraction. Modified Barium Swallow 10/13/16 00:00 IMPRESSION: LARYNGEAL PENETRATION WITHOUT ASPIRATION DESCRIBED. PLEASE SEE SPEECH PATHOLOGIST REPORT FOR OTHER FINDINGS AND RECOMMENDATIONS. KUB X-Ray 10/14/16 00:00 IMPRESSION: Developing small-bowel distention. There is air and contrast throughout the colon from yesterday. Findings most likely represent ileus. Abdomen CT 10/21/16 00:00 IMPRESSION: OVERALL EVALUATION IS SIGNIFICANTLY LIMITED DUE TO LACK OF CONTRAST MATERIAL AND LARGE VOLUME ASCITES. DIFFUSE IRREGULAR LOW ATTENUATION INVOLVING THE LEFT HEPATIC LOBE WITH SCATTERED ILL-DEFINED LOW ATTENUATING LESIONS IN THE RIGHT HEPATIC LOBE DESCRIBED ABOVE IN THE SETTING OF UNDERLYING CIRRHOSIS. FINDINGS ARE CONCERNING FOR MULTIFOCAL HEPATOCELLULAR CARCINOMA. CORRELATE WITH LABORATORY VALUES AND CONSIDER CONTRAST-ENHANCED CT OR MRI IF RENAL FUNCTION PERMITS VERSUS BIOPSY. SINGLE SCLEROTIC LESION SEEN WITHIN THE T9 VERTEBRAL BODY. 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 MODERATE BILATERAL PLEURAL EFFUSIONS WITH ASSOCIATED COMPRESSIVE ATELECTASIS. SMALL AMOUNT OF RADIOPAQUE MATERIAL SEEN WITHIN THE LEFT LOWER LOBE MAY REPRESENT ASPIRATED MATERIAL FROM PRECEDING BARIUM SWALLOW. Abdomen Ultrasound 10/21/16 00:00 IMPRESSION: The diffusely abnormal liver with possible multiple masses. Markedly enlarged. Recanalization umbilical vein. Main portal vein has normal directional flow. Hepatic veins poorly seen. Paracentesis Ultrasound 10/22/16 08:25 IMPRESSION: Successful ultrasound-guided paracentesis Assessment & Plan - Diagnosis (1) Acute renal failure Qualifiers: Acute renal failure type: unspecified Qualified Code(s): N17.9 - Acute kidney failure, unspecified Is this a current diagnosis for this admission?: Yes (2) Adynamic ileus Is this a current diagnosis for this admission?: Yes (3) Ascites Qualifiers: Ascites type: other type Qualified Code(s): R18.8 - Other ascites Is this a current diagnosis for this admission?: Yes (4) Cirrhosis of liver with ascites Qualifiers: Hepatic cirrhosis type: unspecified hepatic cirrhosis Qualified Code (s): K74.60 - Unspecified cirrhosis of liver Is this a current diagnosis for this admission?: Yes (5) Metabolic acidosis, increased anion gap Is this a current diagnosis for this admission?: Yes (6) Thrombocythemia Is this a current diagnosis for this admission?: Yes (7) Anemia of chronic disease Is this a current diagnosis for this admission?: Yes (8) Pleural effusion Is this a current diagnosis for this admission?: Yes (9) Hypernatremia Is this a current diagnosis for this admission?: Yes (10) Oropharyngeal candidiasis Is this a current diagnosis for this admission?: Yes (11) Coagulopathy Is this a current diagnosis for this admission?: Yes - Time Time Spent with patient: 15-24 minutes - Plan Summary Plan Summary: The patient tolerated the procedure well. No active bleeding is reported. Recheck hematocrit in the morning. The patient serum sodium starting to trend up. He is already having third space loss with significant ascites, and moderate pleural effusion. We will try the patient on diuretics and monitor creatinine and keep IV fluids to KVO.
[2016-10-23] MEDS: FUROSEMIDE 40 MG TABLET PO SCH (12:56)
[2016-10-23] MEDS: SPIRONOLACTONE 25 MG TABLET PO SCH (12:57)
[2016-10-23] MEDS: PHARMACY COMMUNICATION ORDER MC SCH (18:00)
[2016-10-24 06:45] LABS: ANION GAP 9 (5-19); BLOOD UREA NITROGEN 26 mg/dL (7-20); CALCIUM 8.9 mg/dL (8.4-10.2); CARBON DIOXIDE 20 mmol/L (22-30); CHLORIDE 120 mmol/L (98-107); CREATININE RESULT 1.25 mg/dL (0.52-1.25); GLUCOSE 86 mg/dL (75-110); SODIUM 148.6 mmol/L (137-145)
[2016-10-24] MEDS: SODIUM BICARBONATE 650 MG TABLET PO SCH ×2 (10:00→21:17)
[2016-10-24] MEDS: POTASSIUM CHLORIDE 20 MEQ/15 ML UDCUP PO SCH (10:00)
[2016-10-24] MEDS: NICOTINE 21 MG/24 HR PATCH.TD24 TD SCH (10:07)
[2016-10-24] MEDS: FUROSEMIDE 40 MG TABLET PO SCH (13:25)
[2016-10-24] MEDS: SPIRONOLACTONE 25 MG TABLET PO SCH (13:26)
[2016-10-24] MEDS: PHARMACY COMMUNICATION ORDER MC SCH (17:32)
--- NOTE | 2016-10-24 17:58 | PDOC PROGRESS REPORT ---
Subjective Progress Note for:: 10/24/16 Subjective:: He is still dehydrated and mild ly hypotensive. He had swallowing evaluation today and recommendation is nectar thick liquid and to progress to pureed diet and to get cookie swallow test later. He is hypernatremic and has been switched to half normal saline solution in addition to bicarbonate solution. Discussed at length with pt's sister, Ms Johnson about his plan of care and addressed all her concerns. He had Cookie swallow on 10/13/2016 and the recommendations are- fully upright during meal; puree, thin diet; alternate bites and sips; Aspiration precautions. We will add Nystatin swish and swallow for possible oropharyngeal candidiasis. His potassium dropped to 3.1; we gave him KCL 20 mEQ x2 doses; KUB showed ileus and it was managed conservatively and it has resolved. He is now on full liquid diet but has not had bowel movement. We will give him fleet enemax1. He was to get up and walk up to the door with physical therapist today. He had large bowel movement last night and this morning. His potassium dropped to 3.3; we will give him KCL 20 MEQ IV x2 and KCL 20 MEQ liquid form P.O. daily.He was able to get up from bed and sit on the chair for about 30 minutes. He will need short term REHAB for deconditioning, though pt is refusing. I D/W his sister extensively about his plan of care. She agreed with short term REHAB. Pt has not been eating much and eats more of liquid food. His sister has a concern about this and we will get GI consult to evaluate for dysphagia and odynophagia for possible EGD. He has ascites and is to get paracentesis today but his INR is 2.1. He was given Vitamin K 5 mg po earlier. I ordered another Vitamin K 5 mg Subcut x1. We will recheck PT/INR later and review with Abd. US that is ordered. He has hx of chronic alcoholism. Hepatitis serology is pending. Abd. US confirmed massive ascites and liver masses. Paracentesis was done on 06/2017 after 3 units of platelets were transfused and platelets increased to 117. We will follow up GI consult today. Physical Exam Vital Signs: Temp Pulse Resp BP Pulse Ox 97.4 F 99 18 103/75 96 10/24/16 12:19 10/24/16 14:00 10/24/16 12:19 10/24/16 12:19 10/24/16 12:19 Intake & Output 10/23/16 10/24/16 10/25/16 06:59 06:59 06:59 Intake Total 772 30 Output Total 850 175 Balance -78 -145 Weight 70.3 kg General appearance: PRESENT: no acute distress, thin - Chronicall ill looking Head exam: PRESENT: atraumatic, normocephalic Eye exam: PRESENT: EOMI, PERRLA Ear exam: PRESENT: TM's normal bilaterally Mouth exam: PRESENT: neck supple, tongue midline Respiratory exam: PRESENT: decreased breath sounds, symmetrical Cardiovascular exam: PRESENT: +S1, +S2 Pulses: PRESENT: +2 pedal pulses bilateral GI/Abdominal exam: PRESENT: ascites, soft Rectal exam: PRESENT: deferred Neurological exam: PRESENT: alert, oriented to person, oriented to place, oriented to time Psychiatric exam: PRESENT: normal mood Results Laboratory Results: 10/22/16 10:30 10/24/16 06:21 10/24/16 06:21 Sodium 148.6 H Potassium 4.0 Chloride 120 H Carbon Dioxide 20 L Anion Gap 9 BUN 26 H Creatinine 1.25 Est GFR ( Amer) > 60 Est GFR (Non-Af Amer) 57 L Glucose 86 Calcium 8.9 Impressions: Renal Ultrasound 10/11/16 00:00 IMPRESSION: Small ascites. Otherwise unremarkable renal sonogram. Chest X-Ray 10/11/16 00:05 IMPRESSION: No acute cardiopulmonary findings. Right internal jugular central line tip at the level of the right atrium ; consider 5 cm retraction. Modified Barium Swallow 10/13/16 00:00 IMPRESSION: LARYNGEAL PENETRATION WITHOUT ASPIRATION DESCRIBED. PLEASE SEE SPEECH PATHOLOGIST REPORT FOR OTHER FINDINGS AND RECOMMENDATIONS. KUB X-Ray 10/14/16 00:00 IMPRESSION: Developing small-bowel distention. There is air and contrast throughout the colon from yesterday. Findings most likely represent ileus. Abdomen CT 10/21/16 00:00 IMPRESSION: OVERALL EVALUATION IS SIGNIFICANTLY LIMITED DUE TO LACK OF CONTRAST MATERIAL AND LARGE VOLUME ASCITES. DIFFUSE IRREGULAR LOW ATTENUATION INVOLVING THE LEFT HEPATIC LOBE WITH SCATTERED ILL-DEFINED LOW ATTENUATING LESIONS IN THE RIGHT HEPATIC LOBE DESCRIBED ABOVE IN THE SETTING OF UNDERLYING CIRRHOSIS. FINDINGS ARE CONCERNING FOR MULTIFOCAL HEPATOCELLULAR CARCINOMA. CORRELATE WITH LABORATORY VALUES AND CONSIDER CONTRAST-ENHANCED CT OR MRI IF RENAL FUNCTION PERMITS VERSUS BIOPSY. SINGLE SCLEROTIC LESION SEEN WITHIN THE T9 VERTEBRAL BODY. 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 MODERATE BILATERAL PLEURAL EFFUSIONS WITH ASSOCIATED COMPRESSIVE ATELECTASIS. SMALL AMOUNT OF RADIOPAQUE MATERIAL SEEN WITHIN THE LEFT LOWER LOBE MAY REPRESENT ASPIRATED MATERIAL FROM PRECEDING BARIUM SWALLOW. Abdomen Ultrasound 10/21/16 00:00 IMPRESSION: The diffusely abnormal liver with possible multiple masses. Markedly enlarged. Recanalization umbilical vein. Main portal vein has normal directional flow. Hepatic veins poorly seen. Paracentesis Ultrasound 10/22/16 08:25 IMPRESSION: Successful ultrasound-guided paracentesis Assessment & Plan - Diagnosis (1) Acute kidney injury Is this a current diagnosis for this admission?: YesPlan: Ct with IV fluids D5 W with KCL 40 MEQ at 50 cc/hr; Ct with Sodium bicarbonate 1300 mg BID PO.Avoid all nephrotoxics; Monitor chemistry daily. strict input/ out put chart; daily wt. F/u mask designer, Dr Boyd for mgt. (2) Metabolic acidosis, increased anion gap Is this a current diagnosis for this admission?: YesPlan: Ct with IV Fluids D%W plus 40 MEQ of KCL at 50cc/hr; Strict input/out put chart ; monitor chemistry daily. (3) Cirrhosis of liver with ascites Qualifiers: Hepatic cirrhosis type: unspecified hepatic cirrhosis Qualified Code (s): K74.60 - Unspecified cirrhosis of liver Is this a current diagnosis for this admission?: YesPlan: Had paracentesis on 10/22/2016 and 4900 ml of straw colored fluid removed; awaiting cytology report. Ct with Spironolactone 50mg qd po. Monitor chemistry daily. (4) Hypokalemia Is this a current diagnosis for this admission?: YesPlan: KCL 20 MEQ IV x2; KCL 20MEQ liquid form po daily; Ct with IV fluid D5W plus 40 MEQ of KCL at 50 cc/hr;Mg is normal at 2.0. Monitor chemistry daily (5) Oropharyngeal candidiasis Is this a current diagnosis for this admission?: YesPlan: Ct with Nystatin swish and swallow 5mls q6h po (6) Ascites Qualifiers: Ascites type: other type Qualified Code(s): R18.8 - Other ascites Is this a current diagnosis for this admission?: Yes (7) Ileus Is this a current diagnosis for this admission?: YesPlan: Pt is on full liquid diet; Ct with IV fluids ; Monitor chemistry daily and ensure adequate correction of hypokalemia. (8) Hyperkalemia Is this a current diagnosis for this admission?: Yes (9) Acute hypernatremia Is this a current diagnosis for this admission?: YesPlan: Ct with D5W plus 40 MEQ of KCL at 50 cc/hr. Ct with free water prn as tolerated.. Monitor chemistry daily. (10) Thrombocythemia Is this a current diagnosis for this admission?: YesPlan: Monitor CBC daily and monitor for bleeding.CT with conservative mgt. (11) Reflux esophagitis Is this a current diagnosis for this admission?: YesPlan: Ct with Protonix 40 mg daily iV. (12) DVT prophylaxis Is this a current diagnosis for this admission?: YesPlan: Ct with SCD; avoid Lovenox due to thrombocytopenia. (13) Cigarette smoker Is this a current diagnosis for this admission?: YesPlan: Ct with Nicotine patch 21 mg daily. (14) Constipation Is this a current diagnosis for this admission?: YesPlan: Give fleet enema x1; Miralax 17 g daily prn.
[2016-10-24] MEDS: ZOLPIDEM TARTRATE 5 MG TABLET PO PRN (21:17)
[2016-10-25 06:40] LABS: ABSOLUTE BASOPHILS # (AUTO) 0.1 10^3/uL (0.0-0.2); ABSOLUTE EOSINOPHILS # (AUTO) 0.2 10^3/uL (0.0-0.6); ABSOLUTE MONOCYTES (AUTO) 0.4 10^3/uL (0.1-1.4); ABSOLUTE NEUT (AUTO) 3.4 10^3/uL (1.7-8.2); BASOPHILS % (AUTO) 1.4 % (0-2); EOSINOPHILS % (AUTO) 3.1 % (0-6); HEMOGLOBIN 11.1 g/dL (13.5-17.0); HGB HCT DIFFERENCE -1.7; LYMPHOCYTES % (AUTO) 20.1 % (13-45); MEAN CORPUSCULAR HEMOGLOBIN 25.1 pg (27.0-33.4); MEAN CORPUSCULAR HGB CONC 31.9 g/dL (32.0-36.0); MEAN CORPUSCULAR VOLUME 79 fl (80-97); MONOCYTES % (AUTO) 8.3 % (3-13); RED BLOOD COUNT 4.44 10^6/uL (4.35-5.55); RED CELL DISTRIBUTION WIDTH 21.9 % (11.5-14.0); SEGMENTED NEUTROPHILS % (AUTO) 67.1 % (42-78)
[2016-10-25 06:41] LABS: PARTIAL THROMBOPLASTIN TIME 35.2 SEC (23.5-35.8); PROTHROMBIN TIME 15.9 SEC (11.4-15.4)
[2016-10-25 07:01] LABS: ALANINE AMINOTRANSFERASE 22 U/L (21-72); ALBUMIN 2.3 g/dL (3.5-5.0); ALKALINE PHOSPHATASE 86 U/L (38-126); ANION GAP 13 (5-19); ASPARTATE AMINO TRANSFERASE 61 U/L (17-59); BILIRUBIN,TOTAL 1.6 mg/dL (0.2-1.3); BLOOD UREA NITROGEN 28 mg/dL (7-20); CALCIUM 9.2 mg/dL (8.4-10.2); CARBON DIOXIDE 20 mmol/L (22-30); CHLORIDE 121 mmol/L (98-107); GLUCOSE 80 mg/dL (75-110); POTASSIUM 4.1 mmol/L (3.6-5.0); SODIUM 153.9 mmol/L (137-145); TOTAL PROTEIN 5.9 g/dL (6.3-8.2)
[2016-10-25] MEDS: SODIUM BICARBONATE 650 MG TABLET PO SCH ×2 (10:02→22:26)
[2016-10-25] MEDS: NICOTINE 21 MG/24 HR PATCH.TD24 TD SCH (10:02)
[2016-10-25] MEDS: POTASSIUM CHLORIDE 20 MEQ/15 ML UDCUP PO SCH (10:02)
[2016-10-25] MEDS ORDERED: FUROSEMIDE 40 MG TABLET PO SCH (12:38)
--- NOTE | 2016-10-25 12:47 | PDOC PROGRESS REPORT ---
Subjective Progress Note for:: 10/25/16 Subjective:: He is still dehydrated and mild ly hypotensive. He had swallowing evaluation today and recommendation is nectar thick liquid and to progress to pureed diet and to get cookie swallow test later. He is hypernatremic and has been switched to half normal saline solution in addition to bicarbonate solution. Discussed at length with pt's sister, Ms Johnson about his plan of care and addressed all her concerns. He had Cookie swallow on 10/13/2016 and the recommendations are- fully upright during meal; puree, thin diet; alternate bites and sips; Aspiration precautions. We will add Nystatin swish and swallow for possible oropharyngeal candidiasis. His potassium dropped to 3.1; we gave him KCL 20 mEQ x2 doses; KUB showed ileus and it was managed conservatively and it has resolved. He is now on full liquid diet but has not had bowel movement. We will give him fleet enemax1. He was to get up and walk up to the door with physical therapist today. He had large bowel movement last night and this morning. His potassium dropped to 3.3; we will give him KCL 20 MEQ IV x2 and KCL 20 MEQ liquid form P.O. daily.He was able to get up from bed and sit on the chair for about 30 minutes. He will need short term REHAB for deconditioning, though pt is refusing. I D/W his sister extensively about his plan of care. She agreed with short term REHAB. Pt has not been eating much and eats more of liquid food. His sister has a concern about this and we will get GI consult to evaluate for dysphagia and odynophagia for possible EGD. He has ascites and is to get paracentesis today but his INR is 2.1. He was given Vitamin K 5 mg po earlier. I ordered another Vitamin K 5 mg Subcut x1. We will recheck PT/INR later and review with Abd. US that is ordered. He has hx of chronic alcoholism. Hepatitis serology is pending. Abd. US confirmed massive ascites and liver masses. Paracentesis was done on 06/2017 after 3 units of platelets were transfused and platelets increasedPatient will be getting a repeat paracentesis today. We will also get a hospice consult with [facility] hospice services. His plan of care was discussed extensively yesterday with his sister and she is in agreement with this. They also requested hospital bed with going to discuss these with hospice services. We anticipate possible discharge home with home hospice services on Monday or . Physical Exam Vital Signs: Temp Pulse Resp BP Pulse Ox 97.3 F 106 H 16 94/69 L 96 10/25/16 07:18 10/25/16 07:18 10/25/16 07:18 10/25/16 07:18 10/25/16 07:18 Intake & Output 10/24/16 10/25/16 10/26/16 06:59 06:59 06:59 Intake Total 772 130 Output Total 850 875 Balance -78 -745 Weight 70.3 kg 68.9 kg General appearance: PRESENT: no acute distress, thin - chronically ill looloking. Head exam: PRESENT: atraumatic, normocephalic Eye exam: PRESENT: EOMI, PERRLA Ear exam: PRESENT: TM's normal bilaterally Mouth exam: PRESENT: neck supple, tongue midline Respiratory exam: PRESENT: decreased breath sounds, symmetrical Cardiovascular exam: PRESENT: +S1, +S2 Pulses: PRESENT: +1 pedal pulses bilateral GI/Abdominal exam: PRESENT: ascites, firm, soft Rectal exam: PRESENT: deferred Neurological exam: PRESENT: alert, awake, oriented to person, oriented to place , oriented to time Psychiatric exam: PRESENT: normal mood Results Laboratory Results: 10/25/16 06:05 10/25/16 06:05 10/25/16 10/25/16 06:05 06:05 WBC 5.0 RBC 4.44 Hgb 11.1 L Hct 35.0 L MCV 79 L MCH 25.1 L MCHC 31.9 L RDW 21.9 H Plt Count 48 L Seg Neutrophils % 67.1 Lymphocytes % 20.1 Monocytes % 8.3 Eosinophils % 3.1 Basophils % 1.4 Absolute Neutrophils 3.4 Absolute Lymphocytes 1.0 Absolute Monocytes 0.4 Absolute Eosinophils 0.2 Absolute Basophils 0.1 Sodium 153.9 H Potassium 4.1 Chloride 121 H Carbon Dioxide 20 L Anion Gap 13 BUN 28 H Creatinine 1.40 H Est GFR ( Amer) > 60 Est GFR (Non-Af Amer) 50 L Glucose 80 Calcium 9.2 Total Bilirubin 1.6 H AST 61 H ALT 22 Alkaline Phosphatase 86 Total Protein 5.9 L Albumin 2.3 L Impressions: Renal Ultrasound 10/11/16 00:00 IMPRESSION: Small ascites. Otherwise unremarkable renal sonogram. Chest X-Ray 10/11/16 00:05 IMPRESSION: No acute cardiopulmonary findings. Right internal jugular central line tip at the level of the right atrium ; consider 5 cm retraction. Modified Barium Swallow 10/13/16 00:00 IMPRESSION: LARYNGEAL PENETRATION WITHOUT ASPIRATION DESCRIBED. PLEASE SEE SPEECH PATHOLOGIST REPORT FOR OTHER FINDINGS AND RECOMMENDATIONS. KUB X-Ray 10/14/16 00:00 IMPRESSION: Developing small-bowel distention. There is air and contrast throughout the colon from yesterday. Findings most likely represent ileus. Abdomen CT 10/21/16 00:00 IMPRESSION: OVERALL EVALUATION IS SIGNIFICANTLY LIMITED DUE TO LACK OF CONTRAST MATERIAL AND LARGE VOLUME ASCITES. DIFFUSE IRREGULAR LOW ATTENUATION INVOLVING THE LEFT HEPATIC LOBE WITH SCATTERED ILL-DEFINED LOW ATTENUATING LESIONS IN THE RIGHT HEPATIC LOBE DESCRIBED ABOVE IN THE SETTING OF UNDERLYING CIRRHOSIS. FINDINGS ARE CONCERNING FOR MULTIFOCAL HEPATOCELLULAR CARCINOMA. CORRELATE WITH LABORATORY VALUES AND CONSIDER CONTRAST-ENHANCED CT OR MRI IF RENAL FUNCTION PERMITS VERSUS BIOPSY. SINGLE SCLEROTIC LESION SEEN WITHIN THE T9 VERTEBRAL BODY. 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 MODERATE BILATERAL PLEURAL EFFUSIONS WITH ASSOCIATED COMPRESSIVE ATELECTASIS. SMALL AMOUNT OF RADIOPAQUE MATERIAL SEEN WITHIN THE LEFT LOWER LOBE MAY REPRESENT ASPIRATED MATERIAL FROM PRECEDING BARIUM SWALLOW. Abdomen Ultrasound 10/21/16 00:00 IMPRESSION: The diffusely abnormal liver with possible multiple masses. Markedly enlarged. Recanalization umbilical vein. Main portal vein has normal directional flow. Hepatic veins poorly seen. Paracentesis Ultrasound 10/22/16 08:25 IMPRESSION: Successful ultrasound-guided paracentesis Assessment & Plan - Diagnosis (1) Cirrhosis of liver with ascites Qualifiers: Hepatic cirrhosis type: unspecified hepatic cirrhosis Qualified Code (s): K74.60 - Unspecified cirrhosis of liver Is this a current diagnosis for this admission?: YesPlan: Had paracentesis on 10/22/2016 and 4900 ml of straw colored fluid removed; awaiting cytology report. Ct with Spironolactone 50mg qd po; Lasix was decreased to 20 mg daily po;Monitor chemistry daily. For repeat paracentesis today.To follow up with [facility] services. (2) Acute kidney injury Is this a current diagnosis for this admission?: YesPlan: Ct with IV fluids D5 W with KCL 40 MEQ at 50 cc/hr; Ct with Sodium bicarbonate 1300 mg BID PO.Avoid all nephrotoxics; Monitor chemistry daily. strict input/ out put chart; daily wt. F/u comic book artist, Dr Boyd for mgt. (3) Metabolic acidosis, increased anion gap Is this a current diagnosis for this admission?: YesPlan: Ct with IV Fluids D%W plus 40 MEQ of KCL at 50cc/hr; Strict input/out put chart ; monitor chemistry daily. (4) Hypokalemia Is this a current diagnosis for this admission?: YesPlan: KCL 20 MEQ IV x2; KCL 20MEQ liquid form po daily; Ct with IV fluid D5W plus 40 MEQ of KCL at 50 cc/hr;Mg is normal at 2.0. Monitor chemistry daily (5) Oropharyngeal candidiasis Is this a current diagnosis for this admission?: YesPlan: Ct with Nystatin swish and swallow 5mls q6h po (6) Ascites Qualifiers: Ascites type: other type Qualified Code(s): R18.8 - Other ascites Is this a current diagnosis for this admission?: Yes (7) Ileus Is this a current diagnosis for this admission?: YesPlan: Pt is on full liquid diet; Ct with IV fluids ; Monitor chemistry daily and ensure adequate correction of hypokalemia. (8) Hyperkalemia Is this a current diagnosis for this admission?: Yes (9) Acute hypernatremia Is this a current diagnosis for this admission?: YesPlan: Ct with D5W plus 40 MEQ of KCL at 50 cc/hr. Ct with free water prn as tolerated.. Monitor chemistry daily. (10) Thrombocythemia Is this a current diagnosis for this admission?: YesPlan: Monitor CBC daily and monitor for bleeding.CT with conservative mgt. (11) Reflux esophagitis Is this a current diagnosis for this admission?: YesPlan: Ct with Protonix 40 mg daily iV. (12) DVT prophylaxis Is this a current diagnosis for this admission?: YesPlan: Ct with SCD; avoid Lovenox due to thrombocytopenia. (13) Cigarette smoker Is this a current diagnosis for this admission?: YesPlan: Ct with Nicotine patch 21 mg daily. (14) Constipation Is this a current diagnosis for this admission?: YesPlan: Give fleet enema x1; Miralax 17 g daily prn.
[2016-10-25] MEDS ORDERED: FUROSEMIDE 20 MG TABLET PO ONE (13:00)
[2016-10-25] MEDS: DEXTROSE 5%-WATER 1000 ML 1,000 ML IV PRN (13:05)
[2016-10-25] MEDS: SPIRONOLACTONE 25 MG TABLET PO SCH (13:06)
[2016-10-25] MEDS: PHARMACY COMMUNICATION ORDER MC SCH (18:01)
[2016-10-25] MEDS: ZOLPIDEM TARTRATE 5 MG TABLET PO PRN (22:25)
[2016-10-26] MEDS: POTASSIUM CHLORIDE 20 MEQ/15 ML UDCUP PO SCH (09:36)
[2016-10-26] MEDS: SODIUM BICARBONATE 650 MG TABLET PO SCH ×2 (09:36→21:27)
[2016-10-26] MEDS: NICOTINE 21 MG/24 HR PATCH.TD24 TD SCH (09:52)
[2016-10-26 12:42] LABS: ABSOLUTE EOSINOPHILS # (AUTO) 0.2 10^3/uL (0.0-0.6); ABSOLUTE LYMPHOCYTES (AUTO) 0.8 10^3/uL (0.5-4.7); ABSOLUTE MONOCYTES (AUTO) 0.4 10^3/uL (0.1-1.4); ABSOLUTE NEUT (AUTO) 2.9 10^3/uL (1.7-8.2); BASOPHILS % (AUTO) 1.1 % (0-2); EOSINOPHILS % (AUTO) 3.8 % (0-6); HEMATOCRIT 34.6 % (37.9-51.0); HEMOGLOBIN 10.8 g/dL (13.5-17.0); HGB HCT DIFFERENCE -2.2; LYMPHOCYTES % (AUTO) 18.2 % (13-45); MEAN CORPUSCULAR HEMOGLOBIN 24.9 pg (27.0-33.4); MEAN CORPUSCULAR HGB CONC 31.3 g/dL (32.0-36.0); MEAN CORPUSCULAR VOLUME 79 fl (80-97); MONOCYTES % (AUTO) 8.5 % (3-13); RED BLOOD COUNT 4.35 10^6/uL (4.35-5.55); RED CELL DISTRIBUTION WIDTH 23.1 % (11.5-14.0); SEGMENTED NEUTROPHILS % (AUTO) 68.4 % (42-78); WHITE BLOOD COUNT 4.2 10^3/uL (4.0-10.5)
[2016-10-26 13:02] LABS: ANION GAP 9 (5-19); BLOOD UREA NITROGEN 25 mg/dL (7-20); CALCIUM 8.8 mg/dL (8.4-10.2); CARBON DIOXIDE 23 mmol/L (22-30); CHLORIDE 116 mmol/L (98-107); CREATININE RESULT 1.39 mg/dL (0.52-1.25); GLUCOSE 100 mg/dL (75-110); SODIUM 147.7 mmol/L (137-145)
[2016-10-26] MEDS: FUROSEMIDE 20 MG TABLET PO SCH (13:03)
[2016-10-26] MEDS: SPIRONOLACTONE 25 MG TABLET PO SCH (13:03)
--- NOTE | 2016-10-26 14:22 | PDOC PROGRESS REPORT ---
Subjective Progress Note for:: 10/26/16 Subjective:: He is still dehydrated and mild ly hypotensive. He had swallowing evaluation today and recommendation is nectar thick liquid and to progress to pureed diet and to get cookie swallow test later. He is hypernatremic and has been switched to half normal saline solution in addition to bicarbonate solution. Discussed at length with pt's sister, Ms Johnson about his plan of care and addressed all her concerns. He had Cookie swallow on 10/13/2016 and the recommendations are- fully upright during meal; puree, thin diet; alternate bites and sips; Aspiration precautions. We will add Nystatin swish and swallow for possible oropharyngeal candidiasis. His potassium dropped to 3.1; we gave him KCL 20 mEQ x2 doses; KUB showed ileus and it was managed conservatively and it has resolved. He is now on full liquid diet but has not had bowel movement. We will give him fleet enemax1. He was to get up and walk up to the door with physical therapist today. He had large bowel movement last night and this morning. His potassium dropped to 3.3; we will give him KCL 20 MEQ IV x2 and KCL 20 MEQ liquid form P.O. daily.He was able to get up from bed and sit on the chair for about 30 minutes. He will need short term REHAB for deconditioning, though pt is refusing. I D/W his sister extensively about his plan of care. She agreed with short term REHAB. Pt has not been eating much and eats more of liquid food. His sister has a concern about this and we will get GI consult to evaluate for dysphagia and odynophagia for possible EGD. He has ascites and is to get paracentesis today but his INR is 2.1. He was given Vitamin K 5 mg po earlier. I ordered another Vitamin K 5 mg Subcut x1. We will recheck PT/INR later and review with Abd. US that is ordered. He has hx of chronic alcoholism. Hepatitis serology is pending. Abd. US confirmed massive ascites and liver masses. Paracentesis was done on 06/2017 after 3 units of platelets were transfused and platelets increased. Patient will be getting a repeat paracentesis today. We will also get a hospice consult with [facility] hospice services. His plan of care was discussed extensively yesterday with his sister and she is in agreement with this. They also requested hospital bed with going to discuss these with hospice services. We anticipate possible discharge home with home hospice services on Monday or . He got a second paracentesis yesterday and about 4300ml of straw colored fluid removed. Hospice has been discussed with pt, sister and rest of family and he has been made DNR as per family's request. Form for personal care filled and he will be likely discharged home tomorrow on home hospice with [facility] hospice services. Physical Exam Vital Signs: Temp Pulse Resp BP Pulse Ox 97.7 F 97 16 108/70 100 10/26/16 11:41 10/26/16 11:41 10/26/16 11:41 10/26/16 11:41 10/26/16 11:41 Intake & Output 10/25/16 10/26/16 10/27/16 06:59 06:59 06:59 Intake Total 130 1878 Output Total 875 400 Balance -745 1478 Weight 68.9 kg 64.1 kg General appearance: PRESENT: thin - chronically ill looking. Head exam: PRESENT: atraumatic, normocephalic Eye exam: PRESENT: EOMI, PERRLA Mouth exam: PRESENT: moist, neck supple, tongue midline Respiratory exam: PRESENT: decreased breath sounds Cardiovascular exam: PRESENT: +S1, +S2 Pulses: PRESENT: +1 pedal pulses bilateral GI/Abdominal exam: PRESENT: ascites, firm Rectal exam: PRESENT: deferred Neurological exam: PRESENT: alert, awake, oriented to person, oriented to place , oriented to time Psychiatric exam: PRESENT: normal mood Results Laboratory Results: 10/26/16 12:05 10/26/16 12:05 10/26/16 10/26/16 10/26/16 06:10 06:10 12:05 WBC Cancelled 4.2 RBC Cancelled 4.35 Hgb Cancelled 10.8 L Hct Cancelled 34.6 L MCV Cancelled 79 L MCH Cancelled 24.9 L MCHC Cancelled 31.3 L RDW Cancelled 23.1 H Plt Count Cancelled 36 L Seg Neutrophils % Cancelled 68.4 Lymphocytes % Cancelled 18.2 Monocytes % Cancelled 8.5 Eosinophils % Cancelled 3.8 Basophils % Cancelled 1.1 Absolute Neutrophils Cancelled 2.9 Absolute Lymphocytes Cancelled 0.8 Absolute Monocytes Cancelled 0.4 Absolute Eosinophils Cancelled 0.2 Absolute Basophils Cancelled 0.0 Sodium Cancelled Potassium Cancelled Chloride Cancelled Carbon Dioxide Cancelled Anion Gap Cancelled BUN Cancelled Creatinine Cancelled Est GFR ( Amer) Cancelled Est GFR (Non-Af Amer) Cancelled Glucose Cancelled Calcium Cancelled Total Bilirubin Cancelled AST Cancelled ALT Cancelled Alkaline Phosphatase Cancelled Total Protein Cancelled Albumin Cancelled 10/26/16 12:05 WBC RBC Hgb Hct MCV MCH MCHC RDW Plt Count Seg Neutrophils % Lymphocytes % Monocytes % Eosinophils % Basophils % Absolute Neutrophils Absolute Lymphocytes Absolute Monocytes Absolute Eosinophils Absolute Basophils Sodium 147.7 H Potassium 4.0 Chloride 116 H Carbon Dioxide 23 Anion Gap 9 BUN 25 H Creatinine 1.39 H Est GFR ( Amer) > 60 Est GFR (Non-Af Amer) 51 L Glucose 100 Calcium 8.8 Total Bilirubin AST ALT Alkaline Phosphatase Total Protein Albumin Impressions: Renal Ultrasound 10/11/16 00:00 IMPRESSION: Small ascites. Otherwise unremarkable renal sonogram. Chest X-Ray 10/11/16 00:05 IMPRESSION: No acute cardiopulmonary findings. Right internal jugular central line tip at the level of the right atrium ; consider 5 cm retraction. Modified Barium Swallow 10/13/16 00:00 IMPRESSION: LARYNGEAL PENETRATION WITHOUT ASPIRATION DESCRIBED. PLEASE SEE SPEECH PATHOLOGIST REPORT FOR OTHER FINDINGS AND RECOMMENDATIONS. KUB X-Ray 10/14/16 00:00 IMPRESSION: Developing small-bowel distention. There is air and contrast throughout the colon from yesterday. Findings most likely represent ileus. Abdomen CT 10/21/16 00:00 IMPRESSION: OVERALL EVALUATION IS SIGNIFICANTLY LIMITED DUE TO LACK OF CONTRAST MATERIAL AND LARGE VOLUME ASCITES. DIFFUSE IRREGULAR LOW ATTENUATION INVOLVING THE LEFT HEPATIC LOBE WITH SCATTERED ILL-DEFINED LOW ATTENUATING LESIONS IN THE RIGHT HEPATIC LOBE DESCRIBED ABOVE IN THE SETTING OF UNDERLYING CIRRHOSIS. FINDINGS ARE CONCERNING FOR MULTIFOCAL HEPATOCELLULAR CARCINOMA. CORRELATE WITH LABORATORY VALUES AND CONSIDER CONTRAST-ENHANCED CT OR MRI IF RENAL FUNCTION PERMITS VERSUS BIOPSY. SINGLE SCLEROTIC LESION SEEN WITHIN THE T9 VERTEBRAL BODY. 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 MODERATE BILATERAL PLEURAL EFFUSIONS WITH ASSOCIATED COMPRESSIVE ATELECTASIS. SMALL AMOUNT OF RADIOPAQUE MATERIAL SEEN WITHIN THE LEFT LOWER LOBE MAY REPRESENT ASPIRATED MATERIAL FROM PRECEDING BARIUM SWALLOW. Abdomen Ultrasound 10/21/16 00:00 IMPRESSION: The diffusely abnormal liver with possible multiple masses. Markedly enlarged. Recanalization umbilical vein. Main portal vein has normal directional flow. Hepatic veins poorly seen. Paracentesis Ultrasound 10/24/16 00:00 IMPRESSION: Successful therapeutic ultrasound-guided paracentesis Assessment & Plan - Diagnosis (1) Cirrhosis of liver with ascites Qualifiers: Hepatic cirrhosis type: unspecified hepatic cirrhosis Qualified Code (s): K74.60 - Unspecified cirrhosis of liver Is this a current diagnosis for this admission?: YesPlan: Had paracentesis on 10/22/2016 and 4900 ml of straw colored fluid removed; awaiting cytology report. Ct with Spironolactone 50mg qd po; Lasix was decreased to 20 mg daily po;Monitor chemistry daily. For repeat paracentesis today.To follow up with [facility] services. (2) Acute kidney injury Is this a current diagnosis for this admission?: YesPlan: Ct with IV fluids D5 W with KCL 40 MEQ at 50 cc/hr; Ct with Sodium bicarbonate 1300 mg BID PO.Avoid all nephrotoxics; Monitor chemistry daily. strict input/ out put chart; daily wt. F/u sole blacker, Dr Boyd for mgt. (3) Metabolic acidosis, increased anion gap Is this a current diagnosis for this admission?: YesPlan: Ct with IV Fluids D%W plus 40 MEQ of KCL at 50cc/hr; Strict input/out put chart ; monitor chemistry daily. (4) Hypokalemia Is this a current diagnosis for this admission?: YesPlan: KCL 20 MEQ IV x2; KCL 20MEQ liquid form po daily; Ct with IV fluid D5W plus 40 MEQ of KCL at 50 cc/hr;Mg is normal at 2.0. Monitor chemistry daily (5) Oropharyngeal candidiasis Is this a current diagnosis for this admission?: YesPlan: Ct with Nystatin swish and swallow 5mls q6h po (6) Ascites Qualifiers: Ascites type: other type Qualified Code(s): R18.8 - Other ascites Is this a current diagnosis for this admission?: Yes (7) Ileus Is this a current diagnosis for this admission?: YesPlan: Pt is on full liquid diet; Ct with IV fluids ; Monitor chemistry daily and ensure adequate correction of hypokalemia. (8) Hyperkalemia Is this a current diagnosis for this admission?: Yes (9) Acute hypernatremia Is this a current diagnosis for this admission?: YesPlan: Ct with D5W plus 40 MEQ of KCL at 50 cc/hr. Ct with free water prn as tolerated.. Monitor chemistry daily. (10) Thrombocythemia Is this a current diagnosis for this admission?: YesPlan: Monitor CBC daily and monitor for bleeding.CT with conservative mgt. (11) Reflux esophagitis Is this a current diagnosis for this admission?: YesPlan: Ct with Protonix 40 mg daily iV. (12) DVT prophylaxis Is this a current diagnosis for this admission?: YesPlan: Ct with SCD; avoid Lovenox due to thrombocytopenia. (13) Cigarette smoker Is this a current diagnosis for this admission?: YesPlan: Ct with Nicotine patch 21 mg daily. (14) Constipation Is this a current diagnosis for this admission?: YesPlan: Give fleet enema x1; Miralax 17 g daily prn. - Time Time Spent with patient: 35 or more minutes Smoking Cessation Education: 3 to 10 minutes Medications reviewed and adjusted accordingly: Yes Anticipated discharge: Home, Hospice Within: within 36 hours
[2016-10-26] MEDS: DEXTROSE 5%-WATER 1000 ML 1,000 ML IV PRN (17:11)
[2016-10-26] MEDS: PHARMACY COMMUNICATION ORDER MC SCH (17:12)
[2016-10-26] MEDS: ZOLPIDEM TARTRATE 5 MG TABLET PO PRN (23:14)
[2016-10-27] MEDS: DEXTROSE 5%-WATER 1000 ML 1,000 ML IV PRN (07:08)
[2016-10-27 09:30] LABS: ABSOLUTE BASOPHILS # (AUTO) 0.1 10^3/uL (0.0-0.2); ABSOLUTE EOSINOPHILS # (AUTO) 0.2 10^3/uL (0.0-0.6); ABSOLUTE LYMPHOCYTES (AUTO) 0.7 10^3/uL (0.5-4.7); ABSOLUTE MONOCYTES (AUTO) 0.4 10^3/uL (0.1-1.4); ABSOLUTE NEUT (AUTO) 2.5 10^3/uL (1.7-8.2); BASOPHILS % (AUTO) 1.8 % (0-2); EOSINOPHILS % (AUTO) 4.6 % (0-6); HEMOGLOBIN 10.8 g/dL (13.5-17.0); HGB HCT DIFFERENCE -1.6; LYMPHOCYTES % (AUTO) 18.6 % (13-45); MEAN CORPUSCULAR HEMOGLOBIN 25.2 pg (27.0-33.4); MEAN CORPUSCULAR HGB CONC 31.7 g/dL (32.0-36.0); MEAN CORPUSCULAR VOLUME 79 fl (80-97); MONOCYTES % (AUTO) 9.4 % (3-13); RED BLOOD COUNT 4.28 10^6/uL (4.35-5.55); RED CELL DISTRIBUTION WIDTH 22.6 % (11.5-14.0); SEGMENTED NEUTROPHILS % (AUTO) 65.6 % (42-78); WHITE BLOOD COUNT 3.8 10^3/uL (4.0-10.5)
[2016-10-27] MEDS: NICOTINE 21 MG/24 HR PATCH.TD24 TD SCH ×2 (09:34→09:35)
[2016-10-27 09:48] LABS: ALANINE AMINOTRANSFERASE 15 U/L (21-72); ALKALINE PHOSPHATASE 85 U/L (38-126); ANION GAP 7 (5-19); ASPARTATE AMINO TRANSFERASE 57 U/L (17-59); BILIRUBIN,TOTAL 1.3 mg/dL (0.2-1.3); BLOOD UREA NITROGEN 22 mg/dL (7-20); CALCIUM 8.4 mg/dL (8.4-10.2); CARBON DIOXIDE 23 mmol/L (22-30); CHLORIDE 113 mmol/L (98-107); CREATININE RESULT 1.32 mg/dL (0.52-1.25); GLUCOSE 99 mg/dL (75-110); POTASSIUM 3.7 mmol/L (3.6-5.0); SODIUM 143.3 mmol/L (137-145); TOTAL PROTEIN 5.2 g/dL (6.3-8.2)
[2016-10-27] MEDS: POTASSIUM CHLORIDE 20 MEQ/15 ML UDCUP PO SCH (12:04)
[2016-10-27] MEDS: SODIUM BICARBONATE 650 MG TABLET PO SCH (12:04)
[2016-10-27] MEDS: FUROSEMIDE 20 MG TABLET PO SCH (12:05)
[2016-10-27] MEDS: SPIRONOLACTONE 25 MG TABLET PO SCH (12:05)
--- NOTE | 2016-10-27 12:08 | PDOC DISCHARGE SUMMARY ---
General - Admit/Disc Date/PCP Admission Date/Primary Care Provider: 10/12/16 10:57 YODIT CALHOUN Discharge Date: 10/27/16 - Discharge Diagnosis (1) Cirrhosis of liver with ascites Is this a current diagnosis for this admission?: Yes (2) Acute kidney injury Is this a current diagnosis for this admission?: Yes (3) Metabolic acidosis, increased anion gap Is this a current diagnosis for this admission?: Yes (4) Hypokalemia Is this a current diagnosis for this admission?: Yes (5) Oropharyngeal candidiasis Is this a current diagnosis for this admission?: Yes (6) Ascites Is this a current diagnosis for this admission?: Yes (7) Ileus Is this a current diagnosis for this admission?: Yes (8) Hyperkalemia Is this a current diagnosis for this admission?: Yes (9) Acute hypernatremia Is this a current diagnosis for this admission?: Yes (10) Thrombocythemia Is this a current diagnosis for this admission?: Yes (11) Reflux esophagitis Is this a current diagnosis for this admission?: Yes (12) DVT prophylaxis Is this a current diagnosis for this admission?: Yes (13) Cigarette smoker Is this a current diagnosis for this admission?: Yes (14) Constipation Is this a current diagnosis for this admission?: Yes (15) Alcohol abuse Is this a current diagnosis for this admission?: Yes - Additional Information Home Medications: Pantoprazole Sodium [Protonix] 40 mg PO DAILY 10/11/16 Furosemide [Lasix] 20 mg PO DAILY #30 tablet 10/27/16 Potassium Chloride [Kaon-Cl 20 Meq/15 ml Udcup] 20 meq PO DAILY #600 udc Sodium Bicarbonate [Sodium Bicarbonate 650 mg Tablet] 1,300 mg PO Q12 #60 tablet 10/27/16 Spironolactone [Aldactone 25 mg Tablet] 50 mg PO DAILY@1200 #30 tablet 10/27/16 History of Present Illness History of Present Illness: JEZ LE JR is a 70 year old male 70 yr old man with hx of HTN/GERD/ Osteoarthritis/Rhinitis/Vitamin D def./ Chronic smoker who lives alone and has not been seen for weeks as per family. He has not been eating, drinking and has lost about 15-20 lbs weight and was too weak and found on the floor by family when they checked on him. He denied any headache, seizures, fever, chest pain, dyspnea, cough, dysuria, oliguria.He was found to be severely dehydrated at ER and BP was 80/40 and was given 4 Liters of normal saline bolus at ER. Hospital Course Hospital Course: 70 year old man who was is chronically ill looking and was admitted at [facility] for acute kidney injury/Severe Anion gap metabolic acidosis/Thrombocytopenia. He has a history of chronic alcohol abuse. We nephrology consult with Dr Boyd and we appreciate his input in the management of this pt. His hepatitis profile confirmed hepatitis C. He was found to have marked ascites clinically which was confirmed by both abdominal US and CT abdomen without contrast due to acute kidney injury.Both Abd US and CT abdomen also confirmed liver cirrhosis with multiple masses suspicious for hepatocellular carcinoma. He was given 3 units of platelets and had 2 therapeutic paracentesis on 10/22/2016 and 10/25/2016, but the ascites reaccumulated almost immediately.His prognosis was discussed with pt, sister - Ms Johnson and the rest of the family and it was agreed to make him DNR/DNI and to place him on hospice care. He will be discharged home today with home hospice with [facility] hospice services. Hospital bed has been arranged and form for [facility] services completed as requested by family. Physical Exam Vital Signs: Temp Pulse Resp BP Pulse Ox 97.5 F 92 20 101/64 98 10/27/16 07:45 10/27/16 07:45 10/27/16 07:45 10/27/16 07:45 10/27/16 07:45 Intake & Output 10/26/16 10/27/16 10/28/16 06:59 06:59 06:59 Intake Total 1878 2310 Output Total 400 725 Balance 1478 1585 Weight 64.1 kg 65.1 kg General appearance: PRESENT: thin - chronically ill looking Head exam: PRESENT: atraumatic, normocephalic Eye exam: PRESENT: EOMI, PERRLA Ear exam: PRESENT: normal external ear exam, TM's normal bilaterally Respiratory exam: PRESENT: decreased breath sounds Cardiovascular exam: PRESENT: +S1, +S2 GI/Abdominal exam: PRESENT: ascites, firm, normal bowel sounds Rectal exam: PRESENT: deferred Neurological exam: PRESENT: alert, oriented to person, oriented to place, oriented to time Psychiatric exam: PRESENT: normal mood Results Laboratory Results: 10/27/16 08:40 10/27/16 08:40 10/26/16 10/26/16 10/27/16 12:05 12:05 08:40 WBC 4.2 3.8 L RBC 4.35 4.28 L Hgb 10.8 L 10.8 L Hct 34.6 L 34.0 L MCV 79 L 79 L MCH 24.9 L 25.2 L MCHC 31.3 L 31.7 L RDW 23.1 H 22.6 H Plt Count 36 L 29 L* Seg Neutrophils % 68.4 65.6 Lymphocytes % 18.2 18.6 Monocytes % 8.5 9.4 Eosinophils % 3.8 4.6 Basophils % 1.1 1.8 Absolute Neutrophils 2.9 2.5 Absolute Lymphocytes 0.8 0.7 Absolute Monocytes 0.4 0.4 Absolute Eosinophils 0.2 0.2 Absolute Basophils 0.0 0.1 Sodium 147.7 H Potassium 4.0 Chloride 116 H Carbon Dioxide 23 Anion Gap 9 BUN 25 H Creatinine 1.39 H Est GFR ( Amer) > 60 Est GFR (Non-Af Amer) 51 L Glucose 100 Calcium 8.8 Total Bilirubin AST ALT Alkaline Phosphatase Total Protein Albumin 10/27/16 08:40 WBC RBC Hgb Hct MCV MCH MCHC RDW Plt Count Seg Neutrophils % Lymphocytes % Monocytes % Eosinophils % Basophils % Absolute Neutrophils Absolute Lymphocytes Absolute Monocytes Absolute Eosinophils Absolute Basophils Sodium 143.3 Potassium 3.7 Chloride 113 H Carbon Dioxide 23 Anion Gap 7 BUN 22 H Creatinine 1.32 H Est GFR ( Amer) > 60 Est GFR (Non-Af Amer) 54 L Glucose 99 Calcium 8.4 Total Bilirubin 1.3 AST 57 ALT 15 L Alkaline Phosphatase 85 Total Protein 5.2 L Albumin 2.0 L Impressions: Renal Ultrasound 10/11/16 00:00 IMPRESSION: Small ascites. Otherwise unremarkable renal sonogram. Chest X-Ray 10/11/16 00:05 IMPRESSION: No acute cardiopulmonary findings. Right internal jugular central line tip at the level of the right atrium ; consider 5 cm retraction. Modified Barium Swallow 10/13/16 00:00 IMPRESSION: LARYNGEAL PENETRATION WITHOUT ASPIRATION DESCRIBED. PLEASE SEE SPEECH PATHOLOGIST REPORT FOR OTHER FINDINGS AND RECOMMENDATIONS. KUB X-Ray 10/14/16 00:00 IMPRESSION: Developing small-bowel distention. There is air and contrast throughout the colon from yesterday. Findings most likely represent ileus. Abdomen CT 10/21/16 00:00 IMPRESSION: OVERALL EVALUATION IS SIGNIFICANTLY LIMITED DUE TO LACK OF CONTRAST MATERIAL AND LARGE VOLUME ASCITES. DIFFUSE IRREGULAR LOW ATTENUATION INVOLVING THE LEFT HEPATIC LOBE WITH SCATTERED ILL-DEFINED LOW ATTENUATING LESIONS IN THE RIGHT HEPATIC LOBE DESCRIBED ABOVE IN THE SETTING OF UNDERLYING CIRRHOSIS. FINDINGS ARE CONCERNING FOR MULTIFOCAL HEPATOCELLULAR CARCINOMA. CORRELATE WITH LABORATORY VALUES AND CONSIDER CONTRAST-ENHANCED CT OR MRI IF RENAL FUNCTION PERMITS VERSUS BIOPSY. SINGLE SCLEROTIC LESION SEEN WITHIN THE T9 VERTEBRAL BODY. 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 MODERATE BILATERAL PLEURAL EFFUSIONS WITH ASSOCIATED COMPRESSIVE ATELECTASIS. SMALL AMOUNT OF RADIOPAQUE MATERIAL SEEN WITHIN THE LEFT LOWER LOBE MAY REPRESENT ASPIRATED MATERIAL FROM PRECEDING BARIUM SWALLOW. Abdomen Ultrasound 10/21/16 00:00 IMPRESSION: The diffusely abnormal liver with possible multiple masses. Markedly enlarged. Recanalization umbilical vein. Main portal vein has normal directional flow. Hepatic veins poorly seen. Paracentesis Ultrasound 10/24/16 00:00 IMPRESSION: Successful therapeutic ultrasound-guided paracentesis
[2016-10-27 12:31] VITALS: BP 101/66
== END 2016-10-27 13:55 | disposition hospice, home (50) | DRG 433 ==
LOC: ER 18:08 → EH 22:46 → UNDOADMIN 22:46 → EH 10-12 10:57 → 3N 10-12 17:08
PROVIDERS: ADMIT Internal Medicine; ATTEND Internal Medicine
PROC: 02H633Z Insertion of Infusion Device into Right Atrium, Percutaneous Approach (ICD-10-PCS; principal; 2016-10-10)
PROC: B244ZZZ Ultrasonography of Right Heart (ICD-10-PCS; 2016-10-10)
PROC: 30233R1 Transfusion of Nonautologous Platelets into Peripheral Vein, Percutaneous Approach (ICD-10-PCS; 2016-10-22)
PROC: 0W9G3ZZ Drainage of Peritoneal Cavity, Percutaneous Approach (ICD-10-PCS; 2016-10-22)
PROC: 0W9G3ZZ Drainage of Peritoneal Cavity, Percutaneous Approach (ICD-10-PCS; 2016-10-25)
DX: K70.31 Alcoholic cirrhosis of liver with ascites (principal); N17.9 Acute kidney failure, unspecified; E46 Unspecified protein-calorie malnutrition; K56.7 Ileus, unspecified; B37.0 Candidal stomatitis; E87.2 Acidosis; E87.0 Hyperosmolality and hypernatremia; C22.0 Liver cell carcinoma; B19.20 Unspecified viral hepatitis C without hepatic coma; E87.5 Hyperkalemia; E86.0 Dehydration; I95.9 Hypotension, unspecified; I10 Essential (primary) hypertension; D69.6 Thrombocytopenia, unspecified; K59.00 Constipation, unspecified; D63.8 Anemia in other chronic diseases classified elsewhere; E87.6 Hypokalemia; F10.21 Alcohol dependence, in remission; K21.9 Gastro-esophageal reflux disease without esophagitis; F17.210 Nicotine dependence, cigarettes, uncomplicated; Z60.2 Problems related to living alone; Z68.20 Body mass index [BMI] 20.0-20.9, adult
CPT/HCPCS: 36415; 36430; 36600; 49083; 71010; 74000; 74150; 74230; 76700; 76770; 80048; 80053; 80061; 80307; 81001; 82272; 82533; 82550; 82553; 82728; 82803; 82962; 83605; 83690; 83735; 83930; 84100; 84443; 84484; 85025; 85027; 85610; 85730; 86803; 86804; 86850; 86900; 86901; 87040; 87086; 87340; 87804; 93005; 93010; 96365; 96375; 99291; 99292; C1751; G8978-GP; G8979-GP; G8987-GO; G8988-GO; G8996-GN; G8997-GN; J0610; J1815; J3430; J3480; J3490; J7030; J7060; P9035; S0164